=== PATIENT | male | born 1940 | race Caucasian/White ===

== ENCOUNTER 2023-02-17 13:33 | Inpatient (IN) | payer OTHER ==
--- OUTSIDE RECORDS SUMMARY | 2023-02-17 13:45 | XMS REPORT | Continuity of Care Document ---
:1940 Author Organization [facility] t Address [address] [place] [address] [id number] Care Team Providers Name Role Phone CASA BRANNONVALERY Tsai Primary Care Physician Unavailable Kim Flores Attending Clinician Unavailable TODD HUERTA Attending Clinician Unavailable DEVANG OLIVAS Attending Clinician Unavailable Shirley Arambula Attending Clinician Devang Olivas MD Attending Clinician SHIRLEY GAINES Attending Clinician Unavailable Doctor Unassigned, [place] Attending Clinician Unavailable SARAH SAL Attending Clinician Unavailable Genna Rosales Attending Clinician Nurse, [facility] Surgery Gu Attending Clinician Unavailable Sarah Dunbar Attending Clinician Stewart Kurtz MD Attending Clinician GENNA SORIA Attending Clinician Unavailable Leelee Chand LCSW Attending Clinician KHARI FLORES Attending Clinician Unavailable Todd Huerta MD Attending Clinician Only, Adc Test Attending Clinician Unavailable Pob, [facility] Main Attending Clinician Unavailable TODD HUERTA Admitting Clinician Unavailable Todd Huerta MD Admitting Clinician Payers Payer Name Policy Type Policy Effective Date Expiration Date Sour ce Number MEDICARE PART A [id number] 2006 \T\ B 00:00:00 AGENCY GENERIC [id number] 2006 00:00:00 COMMERCIAL [id number] 2006 NON-CONTRACT 00:00:00 GENERIC SECURE HORIZONS 53 [id number] Common Sp leonela - [facility] [id number] 2020 GENERIC 00:00:00 Problems Condition Condition Condition Status Onset Resolution Last Treating Co mments Source Name Details Category Date Date Treatment Clinician Date Acute Acute Disease Active 2021-06 Univers combined combined 04 ity of systolic systolic 00:00: [place] and and 00 Medical 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 Chronic Chronic Disease Active 2021-06 [facility] respirator respirator - [place] of y failure [place] Edema Edema Disease Active 2021-06 Univers 1-04 ity of 00:00: [place] 00 Medical Branch History of History of Disease Active 2021-06 U nivers fall fall -04 ity of 00:00: [place] 00 Medical Branch 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 06-06 ity of hypertensi hypertensi [place] Hyperlipid Hyperlipid Disease Active 2021-06 U nivers emia emia 06-06 ity of 00:00: [place] 00 Medical Branch Hypertensi Hypertensi Disease Active 2021-06 U nivers ve heart ve heart 1-04 ity of disease disease 00:00: [place] with heart with heart 00 Me dical failure failure Branch Obesity Obesity Disease Active 2021-06 Univers 1-04 ity of 00:00: [place] 00 Medical Branch Late Late Disease Active 2021-06 Univers effect of effect of 1 ity of fracture fracture 00:00: [place] of lower of lower 00 Medica l extremitie extremitie Br anch s s Ischemic Ischemic Disease Active 2021-06 Unive rs heart heart -04 ity of disease disease 00:00: Medical Branch Poor Poor Disease Active Univers balance balance 8-18 ity of 00:00: Medical Branch Closed Closed Disease Active Univers bimalleola bimalleola 9-20 it y of r fracture r fracture [place] with Medical fracture fracture Branch of distal of distal end of end of fibula fibula 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:00: [place]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 00 Medical Branch Atrial Atrial Disease Active Univers fibrillati fibrillati 3-21 it y of on on 00:00: Medical Branch No known No known Disease Unive rs active active ity of problems problems [facility] [id number] Primary Problem Comm on osteoarthr Spirit is [facility] right [facility] [id number] Primary Problem Comm on osteoarthr Spirit [facility] left [facility] [id number] History of Problem Co mmon prostate [facility] cancer [facility] Prostate Prostate Problem Commo n cancer cancer [facility] Allergies, Adverse Reactions, Alerts Allergy Allergy Status Severity Reaction(s) Onset Inactive Treating Comm ents Source Name Type Date Date Clinician LEVOFLOX DRUG Active Unknown-Cmnt Un trupti ACIN INGREDI 9- ity of 00:00: Medical Branch LISINOPR DRUG Active COUGH Univers IL INGREDI 15 ity of 00:00: Medical Branch Levoflox Propensi Active Unknown - Muscle Uni vers acin ty to See comments 02-15 weakness it y of adverse 00:00: [place] reaction 00 Medical s Branch Lisinopr Propensi Active Cough Univer s il ty to 915 ity of adverse 00:00: [place] reaction 00 Medical s Branch DRONEDAR DRUG Active Rash Univers ONE INGREDI 9- ity of 00:00: Medical Branch Dronedar Drug Active Rash Univers one Allergy 02-21 ity of 00:00: Medical Branch SULFA Drug Active High Anaphylaxis 2019-06 Unive rs (SULFONA Class 2-29 ity of MIDE 00:00: [place] ANTIBIOT 00 Medical ICS) Branch Sulfa Propensi Active Anaphylaxis 2019-06 Uni vers (Sulfona ty to 2-29 ity of mide adverse 00:00: [place] Antibiot reaction 00 Medica l ics) s Branch SULFAMET DRUG Active High Anaphylaxis Uni vers HOXAZOLE 3-20 ity of -TRIMETH 00:00: [place] OPRIM 00 Medical Branch sulfamet sulfamet Active Unknown Commo n hoxazole hoxazole Spirit / / - [facility] trimetho trimetho [facility] Substanc Substanc Active Unknown Commo n e with e with Spirit sulfonam sulfonam - [facility] e and e and Medical antibact antibact Center erial erial mechanis mechanis m of m of action action (substan (substan ce) ce) Social History Social Habit Start Date Stop Date Quantity Comments Source Gender identity Universit y [facility] Sexual orientation Univer sity [facility] History of Tobacco Common Spirit - Use [facility] Sex Assigned At Common Sp leonela - [facility] Exposure to 2022-03-25 2022-04-04 Not sure University SARS-CoV-2 (event) 00:00:00 10:58:00 [facility] History of Social 2022-02-15 2022-02-15 Univers ity of function 00:00:00 00:00:00 [facility] Tobacco use and 2022-02-15 2022-02-15 Smokeless Universit y of exposure 00:00:00 00:00:00 tobacco non-user [facility] Smoking Status Start Date Stop Date Source Never Smoker Common Spirit - [facility] Ex-smoker 2022-02-15 00:00:00 2022-02-15 00:00:[address] [facility] Medications Ordered Filled Start Stop Current Ordering Indication Dosage Frequency Signature Comments Components Source Medication Medication Date Date Medication? Clinician (SIG) Name Name traMADol traMADol No 1{table traMADol HCl 50 MG HCl 50 MG 1-30 t_as_ne HCl 50 MG 00:00: eded} 00 Bupivicaine Bupivicaine No 2.5mg Common [place] Clinton 1-30 Spirit 00:00: - [facility] Bupivicaine Bupivicaine No 2.5mg Common [place] Clinton 1-30 Spirit 00:00: - [facility] 00 [facility] Kenalog Kenalog No 40mg Common (Triamcinol (Triamcinol 1-30 S pirit one) one) 00:00: - [facility] 00 [facility] Kenalog Kenalog No 40mg Common (Triamcinol (Triamcinol 1-30 S pirit one) one) 00:00: - [facility] 00 [facility] cephALEXin 2021-06- No [id number] 500mg Take 1 Univers (KEFLEX) 1- 11-15 capsule by ity of 500 mg 00:00: 05:59 mouth in [place] capsule 00 :00 the Medical morning Branch and 1 capsule in the evening. Do all this for 7 days. gentamicin 2021- No [id number] 80mg U nivers injection 02-15 ity of 80 mg 22:15: 21:15 [place] 00 :00 Medical Branch gentamicin 2021- No [id number] 80mg 80 mg, Univers injection 02-15 Intramuscu ity of 80 mg 22:15: 21:15 lar, ONCE, [place] 00 :00 1 dose, On Medical Raisa Branch 02/15/22 at 1715, JOELLE
Re ason for Anti-Infec tive: Empiric Therapy for Suspected Infection< br>Empiric Therapy Site: Urine
D uration of therapy: 72 hours carvediloL 2020-06 Yes 12.5mg Take 12.5 Univers (COREG) 0-25 mg by ity of 12.5 mg 16:25: mouth 2 [place] tablet 35 (two) Medical times [place] daily with meals. predniSONE 2020-06 Yes 10mg Take 10 mg U nivers 10 mg 0-25 by mouth ity of tablet 16:25: daily. [address] spironolact 2020-06 Yes 25mg Take 25 mg Univers one 25 mg 0-25 by mouth ity of tablet 16:25: daily. [address] BENZONATATE 2020-06 Yes Take by Uni vers ORAL 0-25 mouth. ity of 16:25: [address] tamsulosin 2020-06 Yes Take by Univ ers (FLOMAX) 0-25 mouth ity of 0.4 mg 24 16:25: daily. [facility] capsule [address] [place] [address] finasteride 2020-06 Yes 5mg Take 5 mg U nivers 5 mg tablet 0-25 by mouth ity of 16:25: daily. [address] furosemide 2020-06 Yes 80mg Take 80 mg U nivers (LASIX) 80 0-25 by mouth ity o f mg tablet 16:25: every [place] [address] morning Medical and Branch evening. carvediloL 2020-06 Yes 12.5mg Take 12.5 Univers (COREG) 0-25 mg by ity of 12.5 mg 16:25: mouth 2 [place] tablet 35 (two) Medical times Branch daily with meals. predniSONE 2020-06 Yes 10mg Take 10 mg U nivers 10 mg 0-25 by mouth ity of tablet 16:25: daily. [address] spironolact 2020-06 Yes 25mg Take 25 mg Univers one 25 mg 0-25 by mouth ity of tablet 16:25: daily. [address] BENZONATATE 2020-06 Yes Take by Uni vers ORAL 0-25 mouth. ity of 16:25: [address] tamsulosin 2020-06 Yes Take by [facility] ers (FLOMAX) 0-25 mouth ity of 0.4 mg 24 16:25: daily. [facility] capsule [address] [place] [address] finasteride 2020-06 Yes 5mg Take 5 mg U nivers 5 mg tablet 0-25 by mouth ity of 16:25: daily. [address] furosemide 2020-06 Yes 80mg Take 80 mg U nivers (LASIX) 80 0-25 by mouth ity o f mg tablet 16:25: every [place] [address] morning Medical and Branch evening. carvediloL 2020-06 Yes 12.5mg Take 12.5 Univers (COREG) 0-25 mg by ity of 12.5 mg 16:25: mouth 2 [place] tablet 35 (two) Medical times Branch daily with meals. predniSONE 2020-06 Yes 10mg Take 10 mg U nivers 10 mg 0-25 by mouth ity of tablet 16:25: daily. [address] spironolact 2020-06 Yes 25mg Take 25 mg Univers one 25 mg 0-25 by mouth ity of tablet 16:25: daily. [address] BENZONATATE 2020-06 Yes Take by Uni vers ORAL 0-25 mouth. ity of 16:25: [address] tamsulosin 2020-06 Yes Take by [facility] ers (FLOMAX) 0-25 mouth ity of 0.4 mg 24 16:25: daily. [facility] capsule [address] [place] [address] finasteride 2020-06 Yes 5mg Take 5 mg U nivers 5 mg tablet 0-25 by mouth ity of 16:25: daily. [address] furosemide 2020-06 Yes 80mg Take 80 mg U nivers (LASIX) 80 0-25 by mouth ity o f mg tablet 16:25: every [place] [address] morning Medical and Branch evening. carvediloL 2020-06 Yes 12.5mg Take 12.5 Univers (COREG) 0-25 mg by ity of 12.5 mg 16:25: mouth 2 [place] tablet 35 (two) Medical times [place] daily with meals. predniSONE 2020-06 Yes 10mg Take 10 mg U nivers 10 mg 0-25 by mouth ity of tablet 16:25: daily. [address] spironolact 2020-06 Yes 25mg Take 25 mg Univers one 25 mg 0-25 by mouth ity of tablet 16:25: daily. [address] BENZONATATE 2020-06 Yes Take by Uni vers ORAL 0-25 mouth. ity of 16:25: [address] tamsulosin 2020-06 Yes Take by [facility] ers (FLOMAX) 0-25 mouth ity of 0.4 mg 24 16:25: daily. [facility] capsule [address] [place] [address] finasteride 2020-06 Yes 5mg Take 5 mg U nivers 5 mg tablet 0-25 by mouth ity of 16:25: daily. [address] furosemide 2020-06 Yes 80mg Take 80 mg U nivers (LASIX) 80 0-25 by mouth ity o f mg tablet 16:25: every [place] [address] morning Medical and Branch evening. carvediloL 2020-06 Yes 12.5mg Take 12.5 Univers (COREG) 0-25 mg by ity of 12.5 mg 16:25: mouth 2 [place] tablet 35 (two) Medical times [place] daily with meals. predniSONE 2020-06 Yes 10mg Take 10 mg U nivers 10 mg 0-25 by mouth ity of tablet 16:25: daily. [address] spironolact 2020-06 Yes 25mg Take 25 mg Univers one 25 mg 0-25 by mouth ity of tablet 16:25: daily. [address] BENZONATATE 2020-06 Yes Take by Uni vers ORAL 0-25 mouth. ity of 16:25: [address] tamsulosin 2020-06 Yes Take by [facility] ers (FLOMAX) 0-25 mouth ity of 0.4 mg 24 16:25: daily. [facility] capsule [address] [place] [address] finasteride 2020-06 Yes 5mg Take 5 mg U nivers 5 mg tablet 0-25 by mouth ity of 16:25: daily. [address] furosemide 2020-06 Yes 80mg Take 80 mg U nivers (LASIX) 80 0-25 by mouth ity o f mg tablet 16:25: every [place] [address] morning Medical and Branch evening. carvediloL 2020-06 Yes 12.5mg Take 12.5 Univers (COREG) 0-25 mg by ity of 12.5 mg 16:25: mouth 2 [place] [address] (two) Medical times [place] daily with meals. predniSONE 2020-06 Yes 10mg Take 10 mg U nivers 10 mg 0-25 by mouth ity of tablet 16:25: daily. [address] spironolact 2020-06 Yes 25mg Take 25 mg Univers one 25 mg 0-25 by mouth ity of tablet 16:25: daily. [address] BENZONATATE 2020-06 Yes Take by Uni vers ORAL 0-25 mouth. ity of 16:25: [address] tamsulosin 2020-06 Yes Take by [facility] ers (FLOMAX) 0-25 mouth ity of 0.4 mg 24 16:25: daily. [facility] capsule [address] [place] [address] finasteride 2020-06 Yes 5mg Take 5 mg U nivers 5 mg tablet 0-25 by mouth ity of 16:25: daily. [address] furosemide 2020-06 Yes 80mg Take 80 mg U nivers (LASIX) 80 0-25 by mouth ity o f mg tablet 16:25: every [place] [address] morning Medical and Branch evening. carvediloL 2020-06 Yes 12.5mg Take 12.5 Univers (COREG) 0-25 mg by ity of 12.5 mg 16:25: mouth 2 [place] tablet 35 (two) Medical times [place] daily with meals. predniSONE 2020-06 Yes 10mg Take 10 mg U nivers 10 mg 0-25 by mouth ity of tablet 16:25: daily. [address] spironolact 2020-06 Yes 25mg Take 25 mg Univers one 25 mg 0-25 by mouth ity of tablet 16:25: daily. [address] BENZONATATE 2020-06 Yes Take by Uni vers ORAL 0-25 mouth. ity of 16:25: [address] tamsulosin 2020-06 Yes Take by Univ ers (FLOMAX) 0-25 mouth ity of 0.4 mg 24 16:25: daily. [facility] capsule [address] [place] [address] finasteride 2020-06 Yes 5mg Take 5 mg U nivers 5 mg tablet 0-25 by mouth ity of 16:25: daily. [address] furosemide 2020-06 Yes 80mg Take 80 mg U nivers (LASIX) 80 0-25 by mouth ity o f mg tablet 16:25: every [place] [address] morning Medical and Branch evening. carvediloL 2020-06 Yes 12.5mg Take 12.5 Univers (COREG) 0-25 mg by ity of 12.5 mg 16:25: mouth 2 [place] tablet 35 (two) Medical times [place] daily with meals. predniSONE 2020-06 Yes 10mg Take 10 mg U nivers 10 mg 0-25 by mouth ity of tablet 16:25: daily. [address] spironolact 2020-06 Yes 25mg Take 25 mg Univers one 25 mg 0-25 by mouth ity of tablet 16:25: daily. [address] BENZONATATE 2020-06 Yes Take by Uni vers ORAL 0-25 mouth. ity of 16:25: [address] tamsulosin 2020-06 Yes Take by Uni vers (FLOMAX) 0-25 mouth ity of 0.4 mg 24 16:25: daily. [facility] capsule [address] [place] [address] finasteride 2020-06 Yes 5mg Take 5 mg U nivers 5 mg tablet 0-25 by mouth ity of 16:25: daily. [address] furosemide 2020-06 Yes 80mg Take 80 mg U nivers (LASIX) 80 0-25 by mouth ity o f mg tablet 16:25: every [place] [address] morning Medical and Branch evening. carvediloL 2020-06 Yes 12.5mg Take 12.5 Univers (COREG) 0-25 mg by ity of 12.5 mg 16:25: mouth 2 [place] tablet 35 (two) Medical times Branch daily with meals. predniSONE 2020-06 Yes 10mg Take 10 mg U nivers 10 mg 0-25 by mouth ity of tablet 16:25: daily. [address] spironolact 2020-06 Yes 25mg Take 25 mg Univers one 25 mg 0-25 by mouth ity of tablet 16:25: daily. [address] BENZONATATE 2020-06 Yes Take by Uni vers ORAL 0-25 mouth. ity of 16:25: [address] tamsulosin 2020-06 Yes Take by [facility] ers (FLOMAX) 0-25 mouth ity of 0.4 mg 24 16:25: daily. [facility] capsule [address] [place] [address] finasteride 2020-06 Yes 5mg Take 5 mg U nivers 5 mg tablet 0-25 by mouth ity of 16:25: daily. [address] furosemide 2020-06 Yes 80mg Take 80 mg U nivers (LASIX) 80 0-25 by mouth ity o f mg tablet 16:25: every [place] [address] morning Medical and Branch evening. carvediloL 2020-06 Yes 12.5mg Take 12.5 Univers (COREG) 0-25 mg by ity of 12.5 mg 16:25: mouth 2 [place] tablet 35 (two) Medical times [place] daily with meals. predniSONE 2020-06 Yes 10mg Take 10 mg U nivers 10 mg 0-25 by mouth ity of tablet 16:25: daily. [address] spironolact 2020-06 Yes 25mg Take 25 mg Univers one 25 mg 0-25 by mouth ity of tablet 16:25: daily. [address] BENZONATATE 2020-06 Yes Take by Uni vers ORAL 0-25 mouth. ity of 16:25: [address] tamsulosin 2020-06 Yes Take by Univ ers (FLOMAX) 0-25 mouth ity of 0.4 mg 24 16:25: daily. [facility] capsule [address] [place] [address] finasteride 2020-06 Yes 5mg Take 5 mg U nivers 5 mg tablet 0-25 by mouth ity of 16:25: daily. [place] [address] Medical Branch furosemide 2020-06 Yes 80mg Take 80 mg U nivers (LASIX) 80 0-25 by mouth ity o f mg tablet 16:25: every [place] [address] morning Medical and Branch evening. potassium 2020-06 Yes 20meq Take 20 Univ ers chloride 0-25 mEq by ity of (KCL-20 16:20: mouth 2 [place] ORAL) 34 (two) Medical times Branch daily. warfarin 4 2020-06 Yes 4.5mg Take 4.5 Un trupti mg tablet 0-25 mg by ity of 16:20: mouth. [place] [address] Medical Branch potassium 2020-06 Yes 20meq Take 20 Univ ers chloride 0-25 mEq by ity of (KCL-20 16:20: mouth 2 [place] ORAL) 34 (two) Medical times Branch daily. warfarin 4 2020-06 Yes 4.5mg Take 4.5 Un trupti mg tablet 0-25 mg by ity of 16:20: mouth. [address] Branch potassium 2020-06 Yes 20meq Take 20 Univ ers chloride 0-25 mEq by ity of (KCL-20 16:20: mouth 2 [place] ORAL) 34 (two) Medical times Branch daily. warfarin 4 2020-06 Yes 4.5mg Take 4.5 Un trupti mg tablet 0-25 mg by ity of 16:20: mouth. [address] Branch potassium 2020-06 Yes 20meq Take 20 Univ ers chloride 0-25 mEq by ity of (KCL-20 16:20: mouth 2 [place] ORAL) 34 (two) Medical times Branch daily. warfarin 4 2020-06 Yes 4.5mg Take 4.5 Un trupti mg tablet 0-25 mg by ity of 16:20: mouth. [place] [address] Medical Branch potassium 2020-06 Yes 20meq Take 20 Univ ers chloride 0-25 mEq by ity of (KCL-20 16:20: mouth 2 [place] ORAL) 34 (two) Medical times Branch daily. warfarin 4 2020-06 Yes 4.5mg Take 4.5 Un trupti mg tablet 0-25 mg by ity of 16:20: mouth. [address] potassium 2020-06 Yes 20meq Take 20 Univ ers chloride 0-25 mEq by ity of (KCL-20 16:20: mouth 2 [place] ORAL) 34 (two) Medical times Branch daily. warfarin 4 2020-06 Yes 4.5mg Take 4.5 Un trupti mg tablet 0-25 mg by ity of 16:20: mouth. [address] potassium 2020-06 Yes 20meq Take 20 Univ ers chloride 0-25 mEq by ity of (KCL-20 16:20: mouth 2 [place] ORAL) 34 (two) Medical times Branch daily. warfarin 2020-06 Yes 4.5mg Take 4.5 Un trupti mg tablet 0-25 mg by ity of 16:20: mouth. [address] potassium 2020-06 Yes 20meq Take 20 Univ ers chloride 0-25 mEq by ity of (KCL-20 16:20: mouth 2 [place] ORAL) 34 (two) Medical times Branch daily. warfarin 2020-06 Yes 4.5mg Take 4.5 Un trupti mg tablet 0-25 mg by ity of 16:20: mouth. [address] potassium 2020-06 Yes 20meq Take 20 Univ ers chloride 0-25 mEq by ity of (KCL-20 16:20: mouth 2 [place] ORAL) 34 (two) Medical times Branch daily. warfarin 2020-06 Yes 4.5mg Take 4.5 Un trupti mg tablet 0-25 mg by ity of 16:20: mouth. [address] potassium 2020-06 Yes 20meq Take 20 Univ ers chloride 0-25 mEq by ity of (KCL-20 16:20: mouth 2 [place] ORAL) 34 (two) Medical times Branch daily. warfarin 2020-06 Yes 4.5mg Take 4.5 Un trupti mg tablet 0-25 mg by ity of 16:20: mouth. [address] cyclobenzap Yes [id number] 10mg Take 1 Univers rine 10 mg 9-21 [id number] tablet by it y of tablet 00:00: mouth 3 00 (three) Medical times Branch daily. cyclobenzap Yes [id number] 10mg Take 1 Univers rine 10 mg 9-21 [id number] tablet by it y of tablet 00:00: mouth 3 00 (three) Medical times Branch daily. cyclobenzap Yes [id number] 10mg Take 1 Univers rine 10 mg 9-21 [id number] tablet by it y of tablet 00:00: mouth 3 00 (three) Medical times Branch daily. cyclobenzap 2020-0 Yes [id number] 10mg Take 1 Univers rine 10 mg 9-21 [id number] tablet by it y of tablet 00:00: mouth 3 00 (three) Medical times Branch daily. cyclobenzap 2020-0 Yes [id number] 10mg Take 1 Univers rine 10 mg 9-21 [id number] tablet by it y of tablet 00:00: mouth 3 (three) Medical times Branch daily. cyclobenzap 2020-0 Yes [id number] 10mg Take 1 Univers rine 10 mg 9-21 [id number] tablet by it y of tablet 00:00: mouth 3 (three) Medical times Branch daily. cyclobenzap 2020-0 Yes [id number] 10mg Take 1 Univers rine 10 mg 9-21 [id number] tablet by it y of tablet 00:00: mouth 3 (three) Medical times Branch daily. cyclobenzap 2020-0 Yes [id number] 10mg Take 1 Univers rine 10 mg 9-21 [id number] tablet by it y of tablet 00:00: mouth 3 (three) Medical times Branch daily. cyclobenzap 2020-0 Yes [id number] 10mg Take 1 Univers rine 10 mg 9-21 [id number] tablet by it y of tablet 00:00: mouth 3 (three) Medical times Branch daily. cyclobenzap 2020-0 Yes [id number] 10mg Take 1 Univers rine 10 mg 9-21 [id number] tablet by it y of tablet 00:00: mouth 3 (three) Medical times Branch daily. valsartan 2020-0 Yes Univers 320 mg 9-16 ity of tablet 00:00: 00 Medical Branch valsartan 2020-0 Yes Univers 320 mg 9-16 ity of tablet 00:00: Medical Branch valsartan 2020-0 Yes Univers 320 mg 9-16 ity of tablet 00:00: Medical Branch valsartan 2020-0 Yes Univers 320 mg 9-16 ity of tablet 00:00: Medical Branch valsartan 2020-0 Yes Univers 320 mg 9-16 ity of tablet 00:00: [place] 00 Medical Branch valsartan 0 Yes Univers 320 mg 9-16 ity of tablet 00:00: Medical Branch valsartan 2020-0 Yes Univers 320 mg 9-16 ity of tablet 00:00: [place] Medical Branch valsartan 2020-0 Yes Univers 320 mg 9-16 ity of tablet 00:00: [place] Medical Branch valsartan 2020-0 Yes Univers 320 mg 9-16 ity of tablet 00:00: [place] [facility] valsartan 2020-0 Yes Univers 320 mg 9-16 ity of tablet 00:00: [place] [facility] ofloxacin 0 Yes INSTILL 1 Uni vers 0.3 % 8-11 DROP IN ity of ophthalmic 00:00: BOTH EYES [place] solution 00 TWICE Medical DAILY FOR Branch 1 WEEK ofloxacin 0 Yes INSTILL 1 Uni vers 0.3 % 8-11 DROP IN ity of ophthalmic 00:00: BOTH EYES [place] solution 00 TWICE Medical DAILY FOR Branch 1 WEEK ofloxacin 0 Yes INSTILL 1 Uni vers 0.3 % 8-11 DROP IN ity of ophthalmic 00:00: BOTH EYES [place] solution 00 TWICE Medical DAILY FOR Branch 1 WEEK ofloxacin 0 Yes INSTILL 1 Uni vers 0.3 % 8-11 DROP IN ity of ophthalmic 00:00: BOTH EYES [place] solution 00 TWICE Medical DAILY FOR Branch 1 WEEK ofloxacin 0 Yes INSTILL 1 Uni vers 0.3 % 8-11 DROP IN ity of ophthalmic 00:00: BOTH EYES [place] solution 00 TWICE Medical DAILY FOR Branch 1 WEEK ofloxacin 0 Yes INSTILL 1 Uni vers 0.3 % 8-11 DROP IN ity of ophthalmic 00:00: BOTH EYES [place] solution 00 TWICE Medical DAILY FOR Branch 1 WEEK ofloxacin 2020-0 Yes INSTILL 1 Uni vers 0.3 % 8-11 DROP IN ity of ophthalmic 00:00: BOTH EYES [place] solution 00 TWICE Medical DAILY FOR Branch 1 WEEK ofloxacin 2020-0 Yes INSTILL 1 Uni vers 0.3 % 8-11 DROP IN ity of ophthalmic 00:00: BOTH EYES [place] solution 00 TWICE Medical DAILY FOR Branch 1 WEEK ofloxacin 2020-0 Yes INSTILL 1 Uni vers 0.3 % 8-11 DROP IN ity of ophthalmic 00:00: BOTH EYES [place] solution 00 TWICE Medical DAILY FOR Branch 1 WEEK ofloxacin 2020-0 Yes INSTILL 1 Uni vers 0.3 % 8-11 DROP IN ity of ophthalmic 00:00: BOTH EYES [place] solution 00 TWICE Medical DAILY FOR Branch 1 WEEK olmesartan 2020-0 Yes 20mg Take 20 mg U nivers 20 mg 1-20 by mouth. ity of tablet 11:08: [address] olmesartan 2020-0 Yes 20mg Take 20 mg U nivers 20 mg 1-20 by mouth. ity of tablet 11:08: [address] olmesartan 2020-0 Yes 20mg Take 20 mg U nivers 20 mg 1-20 by mouth. ity of tablet 11:08: [address] olmesartan 2020-0 Yes 20mg Take 20 mg U nivers 20 mg 1-20 by mouth. ity of tablet 11:08: [address] olmesartan 2020-0 Yes 20mg Take 20 mg U nivers 20 mg 1-20 by mouth. ity of tablet 11:08: [address] olmesartan 2020-0 Yes 20mg Take 20 mg U nivers 20 mg 1-20 by mouth. ity of tablet 11:08: [address] olmesartan 2020-0 Yes 20mg Take 20 mg U nivers 20 mg 1-20 by mouth. ity of tablet 11:08: [address] olmesartan 2020-0 Yes 20mg Take 20 mg U nivers 20 mg 1-20 by mouth. ity of tablet 11:08: [address] olmesartan 2020-0 Yes 20mg Take 20 mg U nivers 20 mg 1-20 by mouth. ity of tablet 11:08: [address] olmesartan 2020-0 Yes 20mg Take 20 mg U nivers 20 mg 1-20 by mouth. ity of tablet 11:08: [address] Levaquin Levaquin 2020-0 2020- No Antonella 1 tablet Common 2-21 07-31 [place] [facility] 00:00: 00:00 - [facility]I 00 :00 [facility] Furosemide Furosemide Yes Antonella [address] [facility] PredniSONE PredniSONE Yes Antonella [address] Losartan Losartan Yes Antonella 1 tablet Co mmon Potassium Potassium [place] [facility] Carvedilol Carvedilol Yes Antonella as Co mmon [place] directed [facility] ProAir HFA ProAir HFA Yes Antonella 1 puff as Common [place] needed [facility] Warfarin Warfarin Yes Antonella 1 tablet Co mmon Sodium Sodium [place] [facility] Hydrocodone Hydrocodone Yes Antonella 1 tablet Common -Acetaminop -Acetaminop [place] as needed [facility] Atorvastati Atorvastati Yes Antonella 1 tablet Common n Calcium n Calcium [place] [facility] Lasix Lasix No Lasix Warfarin Warfarin No 1{table QD Warfarin Sodium 4 MG Sodium 4 MG t} Sodium 4 MG Carvedilol Carvedilol No Carvedilol 6.25 MG 6.25 MG 6.25 MG Furosemide Furosemide No 1{table QD Furosemide 80 MG 80 MG t} 80 MG predniSONE predniSONE No 1{table QD predniSONE 5 MG 5 MG t} 5 MG Spironolact Spironolact No Spironolac one one tone Olmesartan Olmesartan No Olmesartan Medoxomil Medoxomil Medoxomil HYDROcodone HYDROcodone No 1{table QID HYDROcodon -Acetaminop -Acetaminop t_as_ne e-Acetamin hen 10-325 hen 10-325 eded} ophen MG MG 10-325 MG ProAir HFA ProAir HFA No 1{puff_ 6xD ProAir HFA 108 (90 108 (90 as_need 108 (90 Base) Base) ed} Base) MCG/ACT MCG/ACT MCG/ACT Losartan Losartan No 1{table QD Losartan Potassium Potassium t} Potassium 100 MG 100 MG 100 MG Levaquin Levaquin No 1{table QD Levaquin 500 MG 500 MG t} 500 MG Potassium Potassium No Potassium Atorvastati Atorvastati No 1{table QD Atorvastat n Calcium n Calcium t} in Calcium 10 MG 10 MG 10 MG Immunizations Ordered Filled Immunization Date Status Comments Sourc e Immunization Name Name SARS-COV-2 COVID-19 2020-07-08 Completed Unive rsity of MODER[place] 12+ YRS 00:00:00 [place] [facility] SARS-COV-2 COVID-19 2020-07-08 Completed Unive rsity of [place]ER[place] 12+ YRS 00:00:00 [place] [facility] SARS-COV-2 COVID-19 2020-07-08 Completed Unive rsity of [place] 12+ YRS 00:00:00 [place] [facility] VACCINE [facility] SARS-COV-2 COVID-19 2020-07-08 Completed Unive rsity of [place] 12+ YRS 00:00:00 [place] [facility] VACCINE [facility] SARS-COV-2 COVID-19 2020-07-08 Completed Unive rsity of [place] 12+ YRS 00:00:00 [place] [facility] VACCINE [facility] SARS-COV-2 COVID-19 2020-07-08 Completed Unive rsity of MODER[place] 12+ YRS 00:00:00 [place] [facility] VACCINE [facility] SARS-COV-2 COVID-19 2020-07-08 Completed Unive rsity of MOD[place] 12+ YRS 00:00:00 [place] [facility] VACCINE [facility] SARS-COV-2 COVID-19 2020-07-08 Completed Unive rsity of MODER[place] 12+ YRS 00:00:00 [place] [facility] VACCINE [facility] SARS-COV-2 COVID-19 2020-07-08 Completed Unive rsity of MODER[place] 12+ YRS 00:00:00 [place] [facility] VACCINE [facility] SARS-COV-2 COVID-19 2020-07-08 Completed Unive rsity of MODERNA 12+ YRS 00:00:00 [place] [facility] VACCINE [facility] SARS-COV-2 COVID-19 2020-06-10 Completed Unive rsity of MODERNA 12+ YRS 00:00:00 [place] [facility] VACCINE [facility] SARS-COV-2 COVID-19 2020-06-10 Completed Unive rsity of MODERNA 12+ YRS 00:00:00 [place] [facility] VACCINE [facility] SARS-COV-2 COVID-19 2020-06-10 Completed Unive rsity of MODERNA 12+ YRS 00:00:00 [place] [facility] VACCINE [facility] SARS-COV-2 COVID-19 2020-06-10 Completed Unive rsity of MODERNA 12+ YRS 00:00:00 [place] [facility] VACCINE [facility] SARS-COV-2 COVID-19 2020-06-10 Completed Unive rsity of MODERNA 12+ YRS 00:00:00 [place] [facility] ical VACCINE Branch SARS-COV-2 COVID-19 2020-06-10 Completed Unive rsity of MODERNA 12+ YRS 00:00:00 [place] [facility] VACCINE [facility] SARS-COV-2 COVID-19 2020-06-10 Completed Unive rsity of MODERNA 12+ YRS 00:00:00 [facility] [place] ical VACCINE Branch SARS-COV-2 COVID-19 2020-06-10 Completed Unive rsity of MODERNA 12+ YRS 00:00:00 [facility] [place] ical VACCINE Branch SARS-COV-2 COVID-19 2020-06-10 Completed Unive rsity of MODERNA 12+ YRS 00:00:00 [facility] [place] ical VACCINE Branch SARS-COV-2 COVID-19 2020-06-10 Completed Unive rsity of MODERNA 12+ YRS 00:00:00 [facility] [place] ical VACCINE Branch Vital Signs Vital Name Observation Time Observation Value Comments Source Systolic blood 2022-07-09 17:15:00 128 mm[Hg] Univer sity of pressure [facility] Diastolic blood 2022-07-09 17:15:00 88 mm[Hg] Unive rsity of pressure [facility] Heart rate 2022-07-09 17:15:00 91 /min [facility] Body temperature 2022-07-09 17:15:00 36.78 Karly [facility] Respiratory rate 2022-07-09 17:15:00 16 /min [facility] Body height 2022-07-09 17:15:00 177.8 cm [facility] Body weight 2022-07-09 17:15:00 108.863 kg [facility] BMI 2022-07-09 17:15:00 34.44 kg/m2 [facility] Oxygen saturation in 2022-07-09 17:15:00 95 /min [facility] Arterial blood by [facility]xim[facility] Branch height 2022-07-02 13:00:00 69 [in_i] Common [facility] weight 2022-07-02 13:00:00 240 [lb_av] Common [facility] temperature 2022-07-02 13:00:00 97.7 [degF] Common [facility] bmi 2022-07-02 13:00:00 35.44 kg/m2 Common S pirit [facility] blood pressure 2022-07-02 13:00:00 146 mm[Hg] Common Spirit - systolic [facility] blood pressure 2022-07-02 13:00:00 82 mm[Hg] Common Spirit - diastolic [facility] Systolic blood 2022-04-04 16:21:00 154 mm[Hg] Univer sity of [facility] Diastolic blood 2022-04-04 16:21:00 90 mm[Hg] Unive rsity of [facility] Heart rate 2022-04-04 16:21:00 77 /min Universi ty [facility] Body temperature 2022-04-04 16:20:00 36.11 Karly [facility] Respiratory rate 2022-04-04 16:20:00 18 /min [facility] Body height 2022-04-04 16:20:[address] [facility] Body weight 2022-04-04 16:20:[address] [facility] BMI 2022-04-04 16:20:00 33.29 kg/m2 [facility] Oxygen saturation in 2022-04-04 16:20:00 97 /min University Arterial blood by [facility] Pulse oximetry Branch Systolic blood 2022-02-15 20:27:00 125 mm[Hg] Univer sity of [facility] Diastolic blood 2022-02-15 20:27:00 74 mm[Hg] Unive rsity of [facility] Heart rate 2022-02-15 20:27:00 66 /min Universi ty [facility] Body temperature 2022-02-15 20:27:00 36.17 Karly [facility] Respiratory rate 2022-02-15 20:27:00 18 /min Univ ersity of [facility] Body height 2022-02-15 20:27:00 177.8 cm [facility] Body weight 2022-02-15 20:27:00 105.235 kg [facility] BMI 2022-02-15 20:27:00 33.29 kg/m2 [facility] Oxygen saturation in 2022-02-15 20:27:00 95 /min University [facility] blood by [facility] Pulse oxim[facility] Branch Procedures Procedure Date / Time Performed Performing Clinician Sour e POCT URINALYSIS AUTO 2022-07-09 17:25:00 Shirley Gaines [facility] POCT URINALYSIS AUTO 2022-07-09 00:00:00 Shirley Gaines [facility] POCT URINALYSIS AUTO 2022-04-04 16:30:00 Shirley Gaines [facility] ASSIGNMENT OF BENEFITS 2022-04-04 15:59:27 Doctor Unassigned, No [facility] Encounters Start End Encounter Admission Attending Care Care Encounter Source Date/Time Date/Time Type Type Clinicians Facility Department ID 2022-07-02 [facility] [id number] Common 16:47:01 , Kim [id number] [facility] 2022-06-05 [facility] [id number] Common 10:28:01 , Kim [id number] [facility] 2021-06-28 [facility] [id number] Common 11:09:25 , Kim [id number] [facility] 2021-04-01 Outpatient R SAAD [facility] CHRISTOPHER [id number] Univers 16:28:[address] [facility] 2021-04-01 Outpatient R SAAD KYTEJA CHRISTOPHER [id number] Univers 12:28:[address] [facility] 2023-02-20 2023-02-20 Outpatient R DEISY [facility] [id number] Univers 15:00:00 15:00:[address] [facility] 2023-02-12 2023-02-12 Outpatient R [facility] [id number] Univers 13:00:00 13:00:00 [facility] 2023-02-11 2023-02-11 Telephone Gaines, [facility] 1.2.840.114 [id number] Univers 00:00:00 00:00:00 Shirley VALLSE 350.1.13.10 ity [facility] [id number] [id number] Ak dical [address] 2023-02-07 2023-02-07 [facility] 1.2.840.114 [id number] Univers 00:00:00 00:00:00 Devang VALLES [id number] i ty [facility] [id number] [id number] Ak dic[address] 2023-01-23 2023-01-23 [id number] Univers 13:45:00 13:45:00 SHIRLEY lanagracie o [facility] 2022-07-09 2022-07-09 [facility] [id number] Univers 11:30:00 11:47:44 SHIRLEY ity o [facility] 2022-07-09 2022-07-09 Office [facility] 1.2.840.114 [id number] [facility] 11:30:00 11:47:44 Visit Shirley VALLES 350.1.13.10 ity of [facility] [id number] [id number] Ak dic[address] 2022-07-02 2022-07-[address] [facility] [id number] Co mmon 00:00:00 00:00:00 [facility] PT LEVEL 4 - CHI [facility] 2022-04-09 2022-04-09 Case Gaines, [facility] 1.2.840.114 [id number] Univers 00:00:00 00:00:00 Management Shirley VALLES 350.1.13.10 [place] of [place] [phone] Ak dical [address] 2022-04-04 2022-04-04 [facility] [id number] Univers 11:00:00 11:53:16 SHIRLEY anne o f [facility] 2022-04-04 2022-04-04 [facility] 1.2.840.114 [id number] Univers 11:00:00 11:53:16 Visit Shirley VALLES 350.1.13.10 ity of [place] [phone] Me dical [address] 2022-04-04 2022-04-04 Orders Doctor CHRIS 1.2.840.114 [id number] Univers 00:00:00 00:00:00 Only Unassigned, LAUREN 350.1.13.10 [facility] 4.2.7.2.686 [place] [phone] [address] 2022-02-15 2022-02-15 Outpatient R [facility] [id number] Univers 15:00:00 16:39:[address] [facility] 2022-02-15 2022-02-15 Outpatient R [facility] [id number] Univers 15:00:00 16:39:[address] [facility] 2022-02-15 2022-02-15 Office [facility] 1.2.840.114 [id number] Univers 15:00:00 16:39:54 Visit Devang [place] 350.1.13.10 i ty of [place] [id number] Ak dical [address] 2022-02-08 2022-02-08 Orders Doctor CHRIS 1.2.840.114 [id number] Univers 00:00:00 00:00:00 Only Unassigned, LAUREN 350.1.13.10 ity of [facility] 4.2.7.2.686 [place] [id number] [address] 2022-02-07 2022-02-07 Telephone [facility] 1.2.840.114 [id number] Univers 00:00:00 00:00:00 Devang [place] 350.1.13.10 i ty [place] [id number] Ak dical NAL [address] [place] [address] 2021-08-16 2021-08-16 Telephone [facility] 1.2.840.114 [id number] Univers 00:00:00 00:00:00 Devang [place] 350.1.13.10 i ty [place] [id number] Ak dical NAL [address] [place] [address] 2021-06-29 2021-06-29 Outpatient R DEISY [facility] [id number] Univers 10:15:00 11:03:20 [facility] 2021-06-29 2021-06-29 [facility] 1.2.840.114 [id number] Univers 10:15:00 11:03:20 Visit [facility] 350.1.13.10 i ty of [place] 4[place]2.[place] [id number] Ak dic[address] 2021-06-29 2021-06-29 [facility] [id number] Univers 10:15:00 11:03:[address] [facility] 2021-05-23 2021-05-23 Outpatient R DORON [facility] [id number] Univers 10:30:00 10:30:00 [facility] 2021-05-04 2021-05-04 [facility] [id number] Univers 09:00:00 09:00:00 [facility] 2021-05-01 2021-05-01 [facility] [id number] Univers 10:00:00 11:13:[address] [facility] 2021-05-01 2021-05-01 [facility] 1.2.840.114 [id number] Univers 09:55:06 11:13:51 Visit [facility] 350.1.13.10 i ty of [place] 4[place] [id number] Ak jose [address] 2021-05-01 2021-05-01 Outpatient R DEISY [facility] [id number] Univers 10:00:00 10:00:[address] [facility] 2021-04-26 2021-04-26 Telephone [facility] [id number] Univers 00:00:00 00:00:00 Genna S HEALTH 350.1.13.10 it y of [place] 4.2.7.2.686 [place] GURDEEP?BLEA [id number] [facility] BO[address] OFFICE [facility] 2021-04-20 2021-04-20 Out[facility] [id number] Univers 13:00:00 13:49:[address] [facility] 2021-04-20 2021-04-20 Nurse Nurse, [facility] 1.2. 840.114 [id number] Univers 12:47:11 13:49:39 Visit Kelley Salela Eulalio VALLES 350.1.13.10 [place] of [place] [id number] [address] 2021-04-20 2021-04-20 Telephone Jerardo [facility] 1.2.840.114 [id number] Univers 00:00:00 00:00:00 Stewart L HEALTH 350.1.13.10 it y of [place] 4.2.7.2.686 [place] GURDEEP?BLEA [id number] Ak jose OSORIO [address] [place] [address] OFFICE [facility] 2021-04-14 2021-04-14 Telephone Deisy [facility] 1.2.840.114 [id number] Univers 00:00:00 00:00:00 [facility] REENA 350.1.13.10 i ty [place] [id number] Ak leena[address] 2021-04-13 2021-04-13 Outpatient R YANG [facility] [id number] Univers 11:00:00 11:00:[address] [facility] 2021-04-13 2021-04-13 Outpatient Becca YANG, [facility] [id number] Univers 11:00:00 11:00:[address] [facility] 2021-04-12 2021-04-12 Outpatient R DORON, [facility] [id number] Univers 14:30:00 15:46:[address] [facility] 2021-04-12 2021-04-12 Outpatient R DORON, [facility] [id number] Univers 14:30:00 15:46:[address] [facility] 2021-04-12 2021-04-12 Outpatient R DORON, [facility] [id number] Univers 14:30:00 15:46:08 [facility] 2021-04-12 2021-04-12 Office [facility] 1.2.840.114 [id number] Univers 14:20:54 15:46:08 [facility] 350.1.13.10 ity of [place] 4.[place] [phone] Ak dical NAL [address] [facility] 2021-04-12 2021-04-12 Outpatient Becca SAL [facility] [id number] Univers 14:30:00 14:30:[address] [facility] 2021-03-31 2021-03-31 Outpatient Becca [facility] [id number] Univers 11:12:45 23:59:00 [facility] 2021-03-31 2021-03-31 [facility] 1.2.840.114 [id number] Univers 11:12:45 23:59:00 Encounter Genna [facility] 350.1.13.10 ity of [place] 4.2.7.2.686 [place] GURDEEP?BLEA [id number] Ak dical KNEY 809 [facility] OFFICE [facility] 2021-03-31 2021-03-31 Outpatient Becca [facility] [id number] Univers 11:12:45 23:59:00 [facility] 2021-03-31 2021-03-31 Office [facility] 1.2.840.114 [id number] Univers 11:08:32 11:41:27 Visit [facility] HEALTH 350.1.13.10 it y of [place] 4.2.7.2.686 [place] GURDEEP?BLEA [id number] Ak jose OSORIO 198 [facility] 2021-03-31 2021-03-31 Outpatient Becca [facility] [id number] Univers 11:00:00 11:41:27 [facility] 2021-03-31 2021-03-31 Outpatient Becca [facility] [id number] Univers 11:00:00 11:00:00 [facility] 2021-03-31 2021-03-31 [facility] [id number] Univers 11:00:00 11:00:00 [facility] 2021-03-31 2021-03-31 Outpatient Becca [facility] [id number] Univers 11:00:00 11:00:00 [facility] 2021-03-31 2021-03-31 Telephone [facility] [id number] Univers 00:00:00 00:00:00 [facility] 350.1.13.10 it y of [place] 4.2.7.2.686 [place] GURDEEP?BLEA [id number] Ak jose OSORIO 198 [facility] 2021-03-30 2021-03-30 Telephone [facility] [id number] Univers 00:00:00 00:00:00 Sarah VALLES 350.1.13.10 ity of [facility] 4.2.[place] [id number] Ak jose THOMPSON 204 [facility] 2021-03-27 2021-03-27 Office [facility] 1.2.840.114 [id number] Univers 11:15:08 12:12:54 Visit Devang Valles 350.1.13.10 i ty of [place]2.[place] [phone] Ak dical nal [address] 2021-03-27 2021-03-27 Outpatient R PÉRE[facility]ARISTIDESSte[facility] [id number] Univers 11:30:00 11:30:[address] [facility] 2021-03-27 2021-03-27 [facility] [id number] Univers 11:30:00 11:30:[address] [facility] 2021-03-27 2021-03-27 Orders Doctor CHRIS 1.2.840.114 [id number] Univers 00:00:00 00:00:00 Only Unassigned, LAUREN 350.1.13.10 ity of [facility] 4.2.7.2.686 [place] as [id number] [facility] [address] [place] 2021-03-24 2021-03-24 [facility] [id number] Univers 00:00:00 00:00:00 Genna [facility] 350.1.13.10 it y of [place] 4.2.7.2.686 [place] Gurdeep?Blea [id number] Ak dical kney [address] [place] [facility] 2021-03-10 2021-03-10 [facility] 1.2.840.114 [id number] Univers 11:45:00 23:59:00 Encounter Genna B[place] Valles 350.1.13.[address] [facility] 4.2.[place] [id number] [facility] [address] 2021-03-10 2021-03-10 [facility] [id number] Univers 11:00:00 11:09:[address] [facility] 2021-03-10 2021-03-10 [facility] [id number] Univers 11:00:00 11:00:[address] [facility] 2021-03-10 2021-03-10 Office [facility] 1.2.840.114 [id number] Univers 10:44:29 10:59:29 Visit Genna [facility] 350.1.13.10 it y of [place] 4.2.7.2.686 [place] Gurdeep?Blea [id number] Me jose osorio 198 [facility] Office [facility] 2021-03-10 2021-03-10 Orders Doctor CHRIS 1.2.840.114 [id number] Univers 00:00:00 00:00:00 Only Unassigned, LAUREN 350.1.13.10 ity of [facility] 4.2.7.2.686 [place] as [phone] [address] 2021-03-10 2021-03-10 Telephone [facility] [id number] Univers 00:00:00 00:00:00 [facility] 350.1.13.10 it y of [place] 4.2.7.2.686 [place] Gurdeep?Blea [phone] Me jose osorio [address] [place] [address] 2021-03-07 2021-03-07 Outpatient R YANG [facility] [id number] Univers 11:15:00 11:15:[address] [facility] 2021-03-03 2021-03-03 Patient [facility] 1.2.840.114 [id number] Univers 00:00:00 00:00:00 Outreach Leelee Polisofia 350.1.13.10 i ty of Surgical 4.2.7.2.686 [place] Specialti [id number] Ak jose comer 198 [facility] 2021-02-28 2021-02-28 Outpatient R YANG [facility] [id number] Univers 11:15:00 11:15:[address] [facility] 2021-02-28 2021-02-28 Telephone [facility] [id number] Univers 00:00:00 00:00:00 [facility] 350.1.13.10 it y of [place] 4.2.7.2.686 [place] Gurdeep?Blea [id number] Me jose osorio [address] [place] [address] 2021-02-27 2021-02-27 Telephone Jerardo [facility] 1.2.840.114 [id number] Univers 00:00:00 00:00:00 [facility] 350.1.13.10 it y of [place] 4.2.7.2.686 [place] Gurdeep?Blea [id number] Ak jose osorio 198 [facility] Office [facility] 2021-02-24 2021-02-24 Patient Luciano Chand 1.2.840.114 [id number] Univers 00:00:00 00:00:00 Outreach Leelee Pediatric 350.1.13.10 ity of [place] [id number] [facility] Primary [address] [facility] 2021-02-23 2021-02-23 Telephone [facility] [id number] Univers 00:00:00 00:00:00 Genna [facility] [id number] it y of [place] 4.2.7.2.686 [place] as Gurdeep?Blea [id number] Ak jose osorio [address] [place] [address] 2021-02-21 2021-02-21 Hospital [facility] [id number] Univers 13:27:42 23:59:00 Encounter Genna Valles [id number] it[place] [id number] [facility] [address] 2021-02-21 2021-02-21 [facility] [id number] Univers 10:18:05 11:57:08 Visit Genna [facility] [id number] it y of [place] [id number] Hserman as Gurdeep?Blea [phone] Ak jose osorio 198 [facility] Office [facility] 2021-02-21 2021-02-21 Outpatient R YANG [facility] [id number] Univers 10:00:00 10:00:00 GENNA ity of [facility] 2021-02-21 2021-02-21 [facility] [id number] Univers 00:00:00 00:00:00 [facility] [id number] it y of [place] [id number] [place] as Gurdeep?Blea [phone] Ak jose osorio [address] [place] [address] Medical Office Building 2020-07-08 2020-07-08 Outpatient Becca FLORES [facility] [id number] Univers 16:10:00 16:10:00 [facility] 2020-06-22 2020-06-22 [facility] [id number] Univers 08:05:00 10:53:00 Encounter Todd Valles [id number] [id number] [id number] [address] 2020-06-21 2020-06-21 Laboratory Only, Adc Test [facility] 1.2.840. 114 [id number] Univers 10:21:28 10:36:28 Only Todd Huerta 350.1.13.1 0 [id number] [place] [phone] [facility] [address] 2020-06-21 2020-06-21 Outpatient R SAAD [facility] [id number] Univers 10:30:00 10:30:[address] [facility] 2020-06-21 2020-06-21 [facility] [id number] Univers 10:30:00 10:30:00 [facility] 2020-06-21 2020-06-21 Orders Doctor PEREZ 1.2.840.114 [id number] Univers 00:00:00 00:00:00 Only Unassigned, LAUREN [id number] ity of [place] [facility] [id number] [place] as [phone] [facility] [address] 2020-06-10 2020-06-10 Outpatient Becca FLORES [facility] [id number] Univers 16:20:00 16:20:[address] [facility] 2020-06-10 2020-06-10 Outpatient Becca FLORES [facility] [id number] Univers 16:20:00 16:07:[address] [facility] 2020-06-01 2020-06-01 Rigby, [facility] [id number] Univers 07:37:00 11:21:00 Encounter Todd Valles [id number] [id number] [id number] [address] 2020-06-01 2020-06-01 Outpatient R [facility] CHRISTOPHER [id number] Univers 07:37:00 11:21:[facility] 2020-05-31 2020-05-31 Laboratory Only, Adc Test [facility] 1.2.840. 114 [id number] Univers 10:00:17 10:15:17 Only Todd Huerta 350.1.13.1 0 it[place] of [id number] [id number] [address] 2020-05-31 2020-05-[address] [facility] [id number] Univers 10:00:00 10:00:[address] [facility] 2020-05-31 2020-05-[address] [facility] [id number] Univers 10:00:00 10:00:00 [facility] 2020-05-31 2020-05-31 Orders Doctor CHRIS 1.2.840.114 [id number] Univers 00:00:00 00:00:00 Only Unassigned, LAUREN [id number] ity of [place] [facility] [id number] [place] as [phone] [address] 2020-05-23 2020-05-23 Physician Practice Administrator Yelitza, Adc Lab Main [facility] 1.2.8 [id number] Univers 12:28:57 12:43:57 Visit Todd Huerta 350.1.13.1 0 ity of [place] [id number] [place] [phone] [address] 2020-05-23 2020-05-23 [facility] [id number] Univers 12:00:00 12:00:[address] [facility] 2020-05-23 2020-05-23 [facility] [id number] Univers 12:00:00 12:00:[address] [facility] 2020-05-23 2020-05-23 Orders Doctor CHRIS 1.2.840.114 [id number] Univers 00:00:00 00:00:00 Only Unassigned, LAUREN [id number] ity of [place] [facility] [id number] [place] as [phone] [address] 2019-10-19 2019-10-19 Outpatient Juanita [place] 30 [id number] Common 11:15:00 11:15:00 t Specialty/U Sp leonela Specialty rology - [facility] 2019-07-31 2019-07-31 Outpatient Juanita [place] 29 [id number] Common 10:45:00 10:45:00 t Specialty/U Sp leonela Specialty rology - [facility] 2019-07-27 2019-07-27 Outpatient Juanita [place] 29 [id number] Common 15:46:00 15:46:00 t Specialty/U Sp leonela Specialty rology - [facility] 2019-07-24 2019-07-24 Outpatient Juanita [place] 29 [id number] Common 13:00:00 13:00:00 t Specialty/U Sp leonela Specialty rology - [facility] Results Test Description Test Time Test Comments Results Result Comments Source POCT URINALYSIS, INSTRUMENT 2022-07-09 17:30:00 Test Item Value Reference Range Interpretation Comme nts POCT U SP GRAV (test code = 3255) 1.020 mg/dl 1.005-1.025 POCT PH U (test code = 3254) 5.0 mg/dl 5-8 POCT U LEUK EST (test code = 3263) negative Negative - Negative POCT U NIT (test code = 3262) negative Negative - Negative POCT U PROT (test code = 3259) negative Negative - Negative POCT U GLU (test code = 3256) negative Negative - Negative POCT U KETONE (test code = 3258) negative Negative - Negative POCT U UROBILI (test code = 3260) 0.2 mg/dl 0.2-1 POCT U BILI (test code = 3261) negative Negative - Negative POCT U BLD (test code = 3257) negative Negative - Negative POCT U COLOR (test code = 3266) yellow POCT U APPEAR (test code = 3267) clear [facility] URINALYSIS, [id number] 17:30:00 Test Item Value Reference Range Interpretation Comments POCT U SP GRAV (test code = 1.020 mg/dl 1.005-1.025 3255) POCT PH U (test code = 3254) 5.0 mg/dl 5-8 POCT U LEUK EST (test code = negative Negative - Negative 3263) POCT U NIT (test code = 3262) negative Negative - Negative POCT U PROT (test code = negative Negative - Negative 3259) POCT U GLU (test code = 3256) negative Negative - Negative POCT U KETONE (test code = negative Negative - Negative 3258) POCT U UROBILI (test code = 0.2 mg/dl 0.2-1 3260) POCT U BILI (test code = negative Negative - Negative 3261) POCT U BLD (test code = 3257) negative Negative - Negative POCT U COLOR (test code = yellow 3266) POCT U APPEAR (test code = clear 3267) [facility] URINALYSIS, [id number] 17:27:00 Test Item Value Reference Range Interpretation Comments POCT U SP GRAV (test code = 1.020 mg/dl 1.005-1.025 3255) POCT PH U (test code = 3254) 0.2 mg/dl 5-8 A POCT U LEUK EST (test code = negative Negative - Negative 3263) POCT U NIT (test code = 3262) negative Negative - Negative POCT U PROT (test code = negative Negative - Negative 3259) POCT U GLU (test code = 3256) negative Negative - Negative POCT U KETONE (test code = negative Negative - Negative 3258) POCT U UROBILI (test code = 0.2 mg/dl 0.2-1 3260) POCT U BILI (test code = negative Negative - Negative 3261) POCT U BLD (test code = 3257) negative Negative - Negative POCT U COLOR (test code = yellow 3266) POCT U APPEAR (test code = clear 3267) Lab Interpretation (test code Abnormal = 77840-9) [facility] URINALYSIS, [id number] 17:27:00 Test Item Value Reference Range Interpretation Comments POCT U SP GRAV (test code = 1.020 mg/dl 1.005-1.025 3255) POCT PH U (test code = 3254) 0.2 mg/dl 5-8 A POCT U LEUK EST (test code = negative Negative - Negative 3263) POCT U NIT (test code = 3262) negative Negative - Negative POCT U PROT (test code = negative Negative - Negative 3259) POCT U GLU (test code = 3256) negative Negative - Negative POCT U KETONE (test code = negative Negative - Negative 3258) POCT U UROBILI (test code = 0.2 mg/dl 0.2-1 3260) POCT U BILI (test code = negative Negative - Negative 3261) POCT U BLD (test code = 3257) negative Negative - Negative POCT U COLOR (test code = yellow 3266) POCT U APPEAR (test code = clear 3267) Lab Interpretation (test code Abnormal = 20045-1) [facility] URINALYSIS, [id number] 16:31:00 Test Item Value Reference Range Interpretation Comments POCT U SP GRAV (test code = 1.025 mg/dl 1.005-1.025 3255) POCT PH U (test code = 3254) 5.5 mg/dl 5-8 POCT U LEUK EST (test code = small Negative - Negative 3263) POCT U NIT (test code = 3262) positive Negative - Negative POCT U PROT (test code = negative Negative - Negative 3259) POCT U GLU (test code = 3256) negative Negative - Negative POCT U KETONE (test code = negative Negative - Negative 3258) POCT U UROBILI (test code = 0.2 mg/dl 0.2-1 3260) POCT U BILI (test code = negative Negative - Negative 3261) POCT U BLD (test code = 3257) negative Negative - Negative POCT U COLOR (test code = yelow 3266) POCT U APPEAR (test code = clear 3267) Lab Interpretation (test code Abnormal = 09397-4) [facility] URINALYSIS, [id number] 16:31:00 Test Item Value Reference Range Interpretation Comments POCT U SP GRAV (test code = 1.025 mg/dl 1.005-1.025 3255) POCT PH U (test code = 3254) 5.5 mg/dl 5-8 POCT U LEUK EST (test code = small Negative - Negative 3263) POCT U NIT (test code = 3262) positive Negative - Negative POCT U PROT (test code = negative Negative - Negative 3259) POCT U GLU (test code = 3256) negative Negative - Negative POCT U KETONE (test code = negative Negative - Negative 3258) POCT U UROBILI (test code = 0.2 mg/dl 0.2-1 3260) POCT U BILI (test code = negative Negative - Negative 3261) POCT U BLD (test code = 3257) negative Negative - Negative POCT U COLOR (test code = yelow 3266) POCT U APPEAR (test code = clear 3267) Lab Interpretation (test code Abnormal = 98439-0) [facility] URINALYSIS, [id number] 16:31:00 Test Item Value Reference Range Interpretation Comments POCT U SP GRAV (test code = 1.025 mg/dl 1.005-1.025 3255) POCT PH U (test code = 3254) 5.5 mg/dl 5-8 POCT U LEUK EST (test code = small Negative - Negative 3263) POCT U NIT (test code = 3262) positive Negative - Negative POCT U PROT (test code = negative Negative - Negative 3259) POCT U GLU (test code = 3256) negative Negative - Negative POCT U KETONE (test code = negative Negative - Negative 3258) POCT U UROBILI (test code = 0.2 mg/dl 0.2-1 3260) POCT U BILI (test code = negative Negative - Negative 3261) POCT U BLD (test code = 3257) negative Negative - Negative POCT U COLOR (test code = yelow 3266) POCT U APPEAR (test code = clear 3267) Lab Interpretation (test code Abnormal = 05334-9) [facility] Notes Date/Time Note Provider Source 2023-02-11 13:35:06-00:00 Formatting of this note migh t be different from the original. Mari Canela MA [facility] Spoke with patients , patient needs an offic e visit . Transferred call to PSS to schedule appointment. Electronically signed by Mari Canela MA at 04/2023 1:38 PM CDT 2023-02-11 10:20:15-00:00 Formatting of this note migh t be different from the original. Regina Perea [facility] Pt's is needing some as sistance with catheter removal. Pt has appt tomorrow with Shirley but his states he cannot get up or walk. Needing orders for Home Health Please advise 23 10:24 AM CDT 2023-02-08 12:52:10-00:00 Formatting of this note migh t be different from the original. Regina Perea [facility] Pt called back to schedule for Saturday. 23 12:52 PM CDT 2023-02-08 12:42:18-00:00 Formatting of this note migh t be different from the original. [facility] Left voicemail to schedule nurse visit 23 12:43 PM CDT 2023-02-07 13:24:07-00:00 Formatting of this note migh t be different from the original. Kim Jensen [facility] Stew Lizarraga is a 83 year old male Patient calling for appt - has catheter that nee ds to be removed Electronically signed by Kim Jensen at 2022 1:25 PM CDT
[2023-02-17 14:38] LABS: Absolute Lymphocytes (CBC) 0.4 K/uL (0.7-4.9); Hematocrit 46.1 % (39.6-49.0); Lymphocytes % 2.9 % (15.3-44.8); MCV 96.8 fL (80-100); MPV 7.8 fL (7.6-11.3); Platelets 284 thou/uL (152-406); RBC Red Blood Cell Count 4.76 M/uL (4.33-5.43)
[2023-02-17 14:48] LABS: Protime INR 2.46
[2023-02-17 15:05] LABS: Albumin 3.1 g/dL (3.4-5.0); Bilirubin Direct 0.2 mg/dL (0-0.2); Bilirubin Indirect, Calculated 0.2 mg/dL (0.2-0.8); Bilirubin Total 0.4 mg/dL (0.2-1.0); Potassium 3.7 mEq/L (3.5-5.1); Protein, Total 6.7 g/dL (6.4-8.2)
[2023-02-17 15:12] LABS: Blood Morphology Comment NOT SEEN (NOT SEEN); Platelet Estimate ADEQ; White Blood Cell Scan OK (OK)
--- NOTE | 2023-02-17 15:28 | RAD REPORT ---
EXAM DESCRIPTION: Lex Single View02/17/2023 2:33 pm CLINICAL HISTORY: DYSPNEA COMPARISON: No comparisons TECHNIQUE: Portable AP view of the chest. FINDINGS: Central interstitial prominence. Left basal opacity, may reflect pleural effusion, atelect asis, or airspace disease, or a combination of these. Left hemidiaphragm appears to be elevated. No p neumothorax or right-sided effusion. Heart is moderately enlarged. Mediastinal contours are unremarka ble allowing for some patient rotation. IMPRESSION: Central interstitial prominence, may reflect central congestion/ CHF. Left basilar airspace opacity, could represent atelectasis, pneumonia, pleural effusion, or a combina tion of these.
[2023-02-17] MEDS ORDERED: NA CHLORIDE 0.9% 500 ML ONE (16:20)
[2023-02-17] MEDS ORDERED: AZITHROMYCIN 500 MG INJ IVPB ONE (16:27)
[2023-02-17] MEDS ORDERED: NA CHLORIDE 0.9% 250 ML ONE (16:27)
[2023-02-17] MEDS ORDERED: CEFTRIAXONE 1000 MG/VIAL ONE (16:27)
[2023-02-17] MEDS ORDERED: FUROSEMIDE 40 MG/4 ML VIAL IV SCH (17:14)
--- NOTE | 2023-02-17 17:15 | EDPHYS ---
Physician Documentation [facility] Name: Stew Guzman Age: 83 yrs Sex: Male : 1940 Arrival Date: 02/17/2023 Time: 13:33 Bed IW10 Private MD: ED Physician Caprice Alvarado HPI: 02/17 15:56 This 83 yrs old Unknown Male presents to ER via EMS with complaints of Shortness Of ci Breath. 15:57 Patient is a 83-year-old male with PMH CHF, A-fib, UTI who presents to the ED with ci chief complaint of generalized weakness, not feeling well. Patient endorses shortness of breath that began today. He has been spitting up. Patient also currently being treated for urinary tract infection. Upon EMS arrival, patient was hypoxic and hypotensive. . Historical: - Allergies: 13:53 Sulfa (Sulfonamide Antibiotics); me1 - PMHx: 13:53 Congestive heart failure; atrial fibrillation; uti; me1 - Immunization history:: Adult Immunizations up to date. - Social history:: Smoking status: Patient/guardian denies using tobacco, but has a distant history of tobacco abuse. ROS: 15:58 Constitutional: Negative for fever, chills, and weight loss, Eyes: Negative for injury, ci pain, redness, and discharge, ENT: Negative for injury, pain, and discharge, Neck: Negative for injury, pain, and swelling. 16:43 Cardiovascular: Negative for chest pain, palpitations. Positive edema, Respiratory: ci Positive for shortness of breath. No cough, wheezing, and pleuritic chest pain, Abdomen/GI: Negative for abdominal pain, nausea, vomiting, diarrhea, and constipation, : Negative for injury, bleeding, discharge, and swelling. 16:43 All other systems are negative. Exam: 16:43 Constitutional: This is a well developed, well nourished patient who is awake, alert, ci and in no acute distress. Head/Face: Normocephalic, atraumatic. Eyes: Pupils equal round and reactive to light, extra-ocular motions intact. Lids and lashes normal. Conjunctiva and sclera are non-icteric and not injected. Cornea within normal limits. Periorbital areas with no swelling, redness, or edema. ENT: Nares patent. No nasal discharge, no septal abnormalities noted. Tympanic membranes are normal and external auditory canals are clear. Oropharynx with no redness, swelling, or masses, exudates, or evidence of obstruction, uvula midline. Mucous membranes moist. Neck: Trachea midline, no thyromegaly or masses palpated, and no cervical lymphadenopathy. Supple, full range of motion without nuchal rigidity, or vertebral point tenderness. No Meningismus. Chest/axilla: Normal chest wall appearance and motion. Nontender with no deformity. No lesions are appreciated. Cardiovascular: Regular rate and rhythm with a normal S1 and S2. No gallops, murmurs, or rubs, no JVD. No pulse deficits. Respiratory: Lungs have equal breath sounds bilaterally, clear to auscultation and percussion. No rales, rhonchi or wheezes noted. + increased work of breathing, with mild retractions Abdomen/GI: Soft, non-tender, with normal bowel sounds. No distension or tympany. No guarding or rebound. No evidence of tenderness throughout. Skin: Warm, dry with normal turgor. Normal color with no rashes, no lesions, and no evidence of cellulitis. MS/ Extremity: Pulses equal, no cyanosis. Neurovascular intact. Full, normal range of motion. Neuro: Awake and alert, GCS 15, oriented to person, place, time, and situation. Cranial nerves II-XII grossly intact. Motor strength 5/5 in all extremities. Sensory grossly intact. Cerebellar exam normal. Normal gait. Psych: Awake, alert, with orientation to person, place and time. Behavior, mood, and affect are within normal limits. Vital Signs: 13:48 BP 99 / 64; Pulse 101; Resp 30; Temp 97.4(O); Pulse Ox 97% on NRB at 15 lpm; me1 15:00 BP 101 / 74; Pulse 98; Resp 27; Pulse Ox 93% on NRB \T\ 15 lpm; me1 16:00 BP 132 / 87; Pulse 95; Resp 25; Pulse Ox 98% on 4 lpm NC; me1 17:00 BP 115 / 57; Pulse 98; Resp 23; Pulse Ox 98% on 2 lpm NC; me1 19:00 BP 115 / 88; Pulse 87; Resp 25; Pulse Ox 98% on 2 lpm NC; me1 20:15 BP 114 / 81; Pulse 86; Resp 24; Pulse Ox 97% on 2 lpm NC; me1 20:17 Weight 108.86 kg; Height 5 ft. 9 in. ; me1 20:17 Body Mass Index 35.44 (108.86 kg, 175.26 cm) me1 MDM: 13:54 Patient medically screened. ci 16:43 Differential Diagnosis ACS, pneumonia, CHF exacerbation, PE, Sepsis, COPD. Data ci reviewed: vital signs, nurses notes, EKG. Management of patient was discussed with the following: Hospitalist: Spoke with Dr. Clifton was excepted patient for admission.. I considered the following discharge prescriptions or medication management in the emergency department Considered diuresis with IV Lasix, however patient's blood pressure is soft, possibly septic. Independent interpretation of the following test(s) in the Emergency Department EKG: See my EKG interpretation above X-Ray: My interpretation is A-fib, rate of 99, no acute ischemic changes. 17:00 Care significantly affected by the following chronic conditions: Congestive Heart ci Failure, Afib. ED course: Patient arrived on a NRB, weaned to 2 L NC. IV lasix was considered but patient was initially hypotensive, possible sepsis. 17:12 Consideration of Admission/Observation Patient was admitted/placed on observation. ci Historians other than the Patient: EMS: . Spouse/Significant Other: . 02/17 13:56 Order name: Basic Metabolic Panel; Complete Time: 15:39 ci 02/17 15:39 Interpretation: CRE 1.66. ci 02/17 13:56 Order name: CBC with Diff; Complete Time: 15:39 ci 02/17 15:39 Interpretation: WBC 14.70. ci 02/17 13:56 Order name: LFT's; Complete Time: 15:39 ci 02/17 13:56 Order name: NT PRO-BNP; Complete Time: 15:39 ci 02/17 15:40 Interpretation: Abnormal: NT PRO-BNP 1846. ci 02/17 13:56 Order name: Troponin HS; Complete Time: 15:39 ci 02/17 14:12 Order name: Blood Culture Adult (2) ci 02/17 14:12 Order name: Lactate w/ 2H reflex if indic.; Complete Time: 15:39 ci 02/17 15:40 Interpretation: Abnormal: LAC 4.0. ci 02/17 14:12 Order name: Protime (+inr); Complete Time: 15:39 ci 02/17 14:12 Order name: Ptt, Activated; Complete Time: 15:39 ci 02/17 15:16 Order name: CBC Smear Scan EDIA 02/17 17:16 Order name: CBC with Automated Diff EDMS 02/17 17:16 Order name: CBC with Automated Diff EDMS 02/17 17:16 Order name: Comprehensive Metabolic Panel EDIA 02/17 17:16 Order name: Comprehensive Metabolic Panel EDIA 02/17 17:17 Order name: Urinalysis W/Microscopic EDIA 02/17 17:19 Order name: Protime (+INR) EDIA 02/17 17:21 Order name: ABG Arterial Blood Gas EDIA 02/17 17:43 Order name: Lactate Sepsis 2 HR Follow-up; Complete Time: 17:50 EDIA 02/17 13:56 Order name: XRAY Chest (1 view); Complete Time: 15:39 ci 02/17 17:09 Interpretation: Per Radiologist's finding(s): IMPRESSION: Central interstitial ci prominence, may reflect central congestion/ CHF. Left basilar airspace opacity, could represent atelectasis, pneumonia, pleural effusion, or a combination of these. 02/17 17:20 Order name: BiPap ([employer] Only) EDIA 02/17 19:38 Order name: US EDIA 02/17 13:56 Order name: EKG; Complete Time: 13:56 ci 02/17 17:09 Interpretation: EKG shows A-fib, heart rate 99, no acute ischemic changes. ci 02/17 17:16 Order name: Heart Healthy EDIA 02/17 13:56 Order name: Cardiac monitoring; Complete Time: 13:58 ci 02/17 13:56 Order name: EKG - Nurse/Tech; Complete Time: 14:11 ci 02/17 13:56 Order name: IV Saline Lock; Complete Time: 14:00 ci 02/17 13:56 Order name: Labs collected and sent; Complete Time: 21:08 ci 02/17 13:56 Order name: O2 Per Protocol; Complete Time: 14:00 ci 02/17 13:56 Order name: O2 Sat Monitoring; Complete Time: 14:00 ci Administered Medications: 16:17 Drug: Rocephin IV 1 grams Route: IV; Rate: per protocol; Site: right antecubital; me1 16:31 Follow up: Response: No adverse reaction; IV Status: Infusion continued me1 16:17 Drug: AZITHromycin IVPB 500 mg Route: IVPB; Infused Over: 1 hrs; Site: right md1 antecubital; 20:08 Follow up: Response: No adverse reaction; IV Status: Completed infusion me1 16:30 Drug: NS 0.9% IV 500 ml Route: IV; Rate: 250 ml/hr; Site: right antecubital; me1 17:26 Follow up: IV Status: Completed infusion; IV Intake: 500ml me1 Disposition Summary: 02/17/23 17:14 Hospitalization Ordered Hospitalization Status: Inpatient Admission ci Provider: Ronald Grimes Location: Telemetry/[facility] (Inpatient) ci Condition: Serious ci Problem: new ci Symptoms: are unchanged ci Bed/Room Type: Standard ci Room Assignment: 406(02/17/23 19:21) cg Diagnosis - Unspecified combined systolic (congestive) and diastolic (congestive) heart failure ci - Acute kidney failure, unspecified ci - Pneumonia, unspecified organism ci Forms: - Medication Reconciliation Form ci - SBAR form ci - Leadership Thank You Letter ci Critical care time excluding procedures: 17:00 Critical care time: Bedside Care: 35 minutes. Total time: 35 minutes ci Signatures: Dispatcher [employer] EDMS Yobani Connors, URIEL-C ROAST MASTER-Cla1 Luisa Villarreal, RN RN Mansi Loyd RN RN md1 Caprice Alvarado ci Corrections: (The following items were deleted from the chart) 15:49 15:48 No PTHX, LLL opacity. ci ci 17:09 15:49 Per Radiologist's finding(s): IMPRESSION: Central interstitial prominence, may ci reflect central congestion/ CHF. Left basilar airspace opacity, could represent atelectasis, pneumonia, pleural effusion, or a combination of these. ci 19:19 17:14 ci cg 19:21 19:19 430 cg cg 02/18 19:02 02/17 15:57 Patient is a 83-year-old male with PMH CHF, A-fib, UTI who presents to the ED with chief complaint of generalized weakness, not feeling well. Patient endorses shortness of breath that began today. He has been spitting. Patient also currently being treated for urinary tract infection. Upon EMS arrival, patient was hypoxic and hypotensive. . ci 02/18 19:10 02/17 16:43 Differential Diagnosis ACS, pneumonia, CHF exacerbation, PE. ci ci 02/18 19:40 02/17 16:43 I considered the following discharge prescriptions or medication management ci in the emergency department Consider diuresis, however patient's blood pressure is soft.. ci
--- NOTE | 2023-02-17 17:15 | ER ---
Nurse's Notes [facility] Name: Stew Guzman Age: 83 yrs Sex: Male : 1940 Arrival Date: 02/17/2023 Time: 13:33 Bed [id number] Private MD: Diagnosis: Unspecified combined systolic (congestive) and diastolic (congestive) heart failure;Acute kidney failure, unspecified;Pneumonia, unspecified organism Presentation: 02/17 13:48 Chief complaint: EMS states: toned out to house for shortness of breath, n/v, "not me1 feeling well" since this morning. Room air sat is 76%, 54/31, hr 107, RR 27, FSBS 102. O2 at 15 lpm via NRB and sat increased to 98%. Reglan 5 mg IV and NS 900 ml brought BP up to 121/64. Coronavirus screen: Vaccine status: Patient reports receiving the 2nd dose of the covid vaccine. difficulty breathing, nausea, shortness of breath. Ebola Screen: No symptoms or risks identified at this time. Initial Sepsis Screen: Does the patient meet any 2 criteria? RR > 20 per min. HR > 90 bpm. Yes Does the patient have a suspected source of infection? Yes: Dysuria/Frequency/Urgency/UTI. Risk Assessment: Do you want to hurt yourself or someone else? Patient reports no desire to harm self or others. Onset of symptoms was February 17, 2023. 13:48 Method Of Arrival: EMS [facility] [place] 13:48 Acuity: JOSE MARTIN 2 me1 13:57 Initial Sepsis Screen: If YES to both, name of provider notified: Caprice Alvarado. sc1 Triage Assessment: 13:53 General: Appears distressed, obese, Behavior is cooperative, appropriate for age, me1 anxious, Reports feeling ill for fatigue for 0-12 hours, SOB, nauseated and feeling sick since this morning. Pain: Denies pain. Neuro: Level of Consciousness is awake, alert, obeys commands, Oriented to person, place, time, situation, Appropriate for age. Cardiovascular: Patient's skin is warm and dry. Respiratory: Airway is patent Respiratory effort is even, labored, Respiratory pattern is symmetrical, tachypnea. Historical: - Allergies: 13:53 Sulfa (Sulfonamide Antibiotics); me1 - PMHx: 13:53 Congestive heart failure; atrial fibrillation; uti; me1 - Immunization history:: Adult Immunizations up to date. - Social history:: Smoking status: Patient/guardian denies using tobacco, but has a distant history of tobacco abuse. Screenin:56 [facility] ED Fall Risk Assessment (Adult) History of falling in the last 3 months, me1 including since admission No falls in past 3 months (0 pts) Confusion or Disorientation No (0 pts) Intoxicated or Sedated No (0 pts). Abuse screen: Denies threats or abuse. Nutritional screening: No deficits noted. Tuberculosis screening: No symptoms or risk factors identified. Assessment: 13:56 General: See triage assessment.. me1 16:00 General: changed from 15 lpm via NRB to NC at 4 LPM. o2 sat 98%. Weaned down to 2 lpm me1 via nc- sat remains at 97-98%.. 20:22 General: Called patient's , Reina at [phone] and informed her patient is me1 going to room 406. Verbalized understanding.. Vital Signs: 13:48 BP 99 / 64; Pulse 101; Resp 30; Temp 97.4(O); Pulse Ox 97% on NRB at 15 lpm; me1 15:00 BP 101 / 74; Pulse 98; Resp 27; Pulse Ox 93% on NRB \\T\\ 15 lpm; me1 16:00 BP 132 / 87; Pulse 95; Resp 25; Pulse Ox 98% on 4 lpm NC; me1 17:00 BP 115 / 57; Pulse 98; Resp 23; Pulse Ox 98% on 2 lpm NC; me1 19:00 BP 115 / 88; Pulse 87; Resp 25; Pulse Ox 98% on 2 lpm NC; me1 20:15 BP 114 / 81; Pulse 86; Resp 24; Pulse Ox 97% on 2 lpm NC; me1 20:17 Weight 108.86 kg; Height 5 ft. 9 in. ; me1 20:17 Body Mass Index 35.44 (108.86 kg, 175.26 cm) me1 ED Course: 13:41 Patient arrived in ED. ds4 13:48 Mansi Loyd, YANY is Primary Nurse. me1 13:53 Triage completed. me1 13:53 Arm band placed on Patient placed in an exam room. me1 13:54 Caprice Alvarado is Attending Physician. ci 13:56 Patient has correct armband on for positive identification. Bed in low position. Call me1 light in reach. Side rails up X2. Provided Education on: POC. Verbalized understanding.. 13:56 No provider procedures requiring assistance completed. Maintain EMS IV. Dressing me1 intact. Good blood return noted. Site clean \\T\\ dry. Gauge \\T\\ site: 20 gauge to RAC. 14:30 Inserted saline lock: 20 gauge in right antecubital area, using aseptic technique. me1 14:30 Lactate w/ 2H reflex if indic. Sent. me1 14:30 Protime (+inr) Sent. me1 14:30 Ptt, Activated Sent. me1 14:30 Basic Metabolic Panel Sent. me1 14:30 CBC with Diff Sent. me1 14:30 LFT's Sent. me1 14:30 NT PRO-BNP Sent. me1 14:30 Troponin HS Sent. me1 14:35 XRAY Chest (1 view) In Process Unspecified. EDMS 17:13 Ronald Grimes MD is Hospitalizing Provider. ci 20:22 Patient admitted, IV remains in place. me1 Administered Medications: 16:17 Drug: Rocephin IV 1 grams Route: IV; Rate: per protocol; Site: right antecubital; me1 16:31 Follow up: Response: No adverse reaction; IV Status: Infusion continued me1 16:17 Drug: AZITHromycin IVPB 500 mg Route: IVPB; Infused Over: 1 hrs; Site: right sc1 antecubital; 20:08 Follow up: Response: No adverse reaction; IV Status: Completed infusion me1 16:30 Drug: NS 0.9% IV 500 ml Route: IV; Rate: 250 ml/hr; Site: right antecubital; me1 17:26 Follow up: IV Status: Completed infusion; IV Intake: 500ml me1 Medication: 13:56 VIS not applicable for this client. me1 Intake: 17:26 IV: 500ml; Total: 500ml. me1 Outcome: 17:14 Decision to Hospitalize by Provider. ci 20:21 Admitted to Med/surg accompanied by tech, via stretcher, room 406, with oxygen, with me1 chart, Report called to YANY Bravo 20:21 Condition: stable 20:21 Instructed on the need for admit. 20:23 Admitted to Med/surg me1 23:12 Patient left the ED. as6 Signatures: Dispatcher [employer] Shon Contreras ds4 Royer Willis RN RN as6 Mansi Loyd RN RN me1 Caprice Alvarado
--- NOTE | 2023-02-17 17:26 | P.HP ---
Certification for Inpatient With expected LOS: >2 Midnights Patient will require the following post-hospital care: Shelter Practitioner: I am a practitioner with admitting privileges, knowledge of patient current condition, hospital course, and medical plan of care. Services: Services provided to patient in accordance with Admission requirements found in Title 42 Section 412.3 of the Code of Federal Regulations Patient History Date of Service: 02/17/23 Reason for admission: Shortness of breath History of Present Illness: Patient is 83 years of age very debilitated worsened over the past 2 weeks unable to ambulate history of recurrent UTIs he has been to the [facility] edition he has had some falls with fractures of his bone worse in the right leg he recently had a toe fracture and was in a boot apparently today got much worse developed more shortness of breath patient also had a urinary catheter inserted has been on multiple antibiotic history of congestive heart failure and A-fib under the care of Dr. Champagne in [place] denies any fever Past 2 weeks he is unable to ambulate is very weak addition patient has spinal stenosis Allergies No Known Allergies Allergy (Unverified 03/25/13 14:10) Home Medications: Aspirin Enteric Coated [ASPIRIN 81 MG EC*] 81 mg PO DAILY 03/25/13 Docusate [Colace Cap*] 100 mg PO BID 03/25/13 Flaxseed Oil [Flaxseed] 1 tab PO DAILY 03/25/13 Methylcellulose [Citrucel] 1 tbsp PO DAILY 03/25/13 Olmesartan/Hydrochlorothiazide [Benicar Hct 40-25 mg Tablet] 1 tab PO DAILY 03/25/13 Thiamine HCl [Vitamin B-1*] 250 mg PO DAILY 03/25/13 [place]-3 Fatty Acids/Fish Oil [Fish Oil 1,000 mg Softgel] 1 each PO DAILY 03/26/13 Baclofen [Lioresal*] 10 mg PO BEDTIME #30 tab 04/16/13 Hydrocodone 5/APAP 325 [[place] 5/325*] 1 tab PO Q4H PRN #30 tab 04/16/13 Potassium Oral Tab [Klor-Con 10 mEq Tab*] 20 meq PO DAILY #60 tab 04/16/13 Verapamil Sr [Calan SR Or Isoptin SR*] 240 mg PO BID #0 tab 04/16/13 traMADol HCL [Ultram*] 50 mg PO Q6HP PRN #30 tab 04/16/13 - Past Medical/Surgical History Diabetic: No -: HTN -: 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, SPINE, ELBOW & SHOULDER) -: ARTHRITIS -: Congestive heart failure -: Atrial fibrillation -: HEART CATHETERIZATION -: PROSTATE SX -: L KNEE SURGERY - Social History Alcohol use: No CD- Drugs: No Caffeine use: Yes Review of Systems General: Weakness Respiratory: Shortness of Breath Gastrointestinal: Nausea Musculoskeletal: Other (Unable to ambulate) Physical Examination - Vital Signs Temperature: 98 F Blood Pressure: 128/72 Pulse: 83 Respirations: 17 Pulse Ox (%): 100 - Physical Exam General: Alert, Moderate distress HEENT: Atraumatic Neck: Supple Respiratory: Clear to auscultation bilaterally, Diminished, Crackles/rales Cardiovascular: No edema (Minimal edema), Normal pulses, Normal S1 S2 Gastrointestinal: Normal bowel sounds, Soft and benign Musculoskeletal: No clubbing, No swelling, No contractures Integumentary: No breakdown Neurological: Normal speech - Studies Laboratory Data (last 24 hrs) 02/17/23 02/17/23 02/17/23 14:24 14:24 14:24 WBC 14.70 H Hgb 15.4 Hct 46.1 Plt Count 284 PT 27.1 H INR 2.46 APTT 33.2 Sodium 134 L Potassium 3.7 BUN 28 H Creatinine 1.66 H Glucose 114 H Total Bilirubin 0.4 AST 22 ALT 36 Alkaline Phosphatase 64 Assessment and Plan - Problems (Diagnosis) (1) Sepsis Current Visit: Yes Status: Acute Plan: Patient is 83 years of age admitted with worsening dyspnea lactic acidosis levels are high at 4 worsening renal function creatinine 1.66 White count is mildly elevated chest x-ray shows some cardiomegaly is rotated urinalysis is pending start patient on meropenem high risk for resistant organism as he is on multiple antibiotics for recurrent UTI infection we will give another liter of IV fluids monitor electrolytes as he is tachypneic we will start him on some BiPAP for some additional respiratory support Qualifiers: Sepsis type: sepsis due to unspecified organism (2) Congestive heart failure Current Visit: Yes Status: Acute Plan: History of congestive heart failure patient is on olmesartan Lasix and spironolactone at home we will order a 2D echocardiogram hold Lasix for now Qualifiers: Heart failure chronicity: unspecified (3) Septic shock Current Visit: Yes Status: Acute Plan: PT was hypotensive in field was bolsed 1.5 L - Advance Directives Does patient have a Living Will: No Does patient have a Durable POA for Healthcare: No
[2023-02-17] MEDS ORDERED: NA CHLORIDE 0.9% 1,000 ML IV ONE (17:28)
[2023-02-17 17:43] LABS: Arterial Blood Carboxyhemoglob 0.9 % (0-1.5); Blood Gas Oxyhemoglobin 91.1 % (94-97); Blood O2 Saturation 93.5 % (92-98.5)
--- NOTE | 2023-02-17 19:37 | RAD REPORT ---
EXAM DESCRIPTION: US - Renal Ultrasound-Complete - 02/17/2023 6:11 pm CLINICAL HISTORY: Renal failure COMPARISON: RP EXAM COMPLETE dated 05/03/2015 TECHNIQUE: Sonographic grayscale and color flow images of the kidneys and bladder were obtained. FINDINGS: Both kidneys are normal in size, shape and echotexture. The right kidney measures 10.2 cm in length. No hydronephrosis, focal mass or perinephric fluid. The left kidney measures 10.6 cm in length. No hydronephrosis, focal mass or perinephric fluid. No echogenic calculi. The urinary bladder is incompletely distended limiting evaluation. IMPRESSION: Unremarkable ultrasound of the kidneys. Urinary bladder is decompressed limiting evaluation.
[2023-02-17] MEDS ORDERED: NA CHLORIDE 0.9% 500 ML IV ONE (20:58)
[2023-02-17] MEDS: MELATONIN 5 MG TABLET PO SCH (22:19)
[2023-02-17] MEDS: Meropenem 1,000 MG in NA CHLORIDE 0.9% 100 ML IV SCH (22:23)
[2023-02-17] MEDS: ACETAMINOPHEN 325 MG TABLET PO PRN (23:22)
[2023-02-18 01:07] VITALS: BMI 35.4
[2023-02-18 05:55] LABS: Specific Gravity 1.019 (1.005-1.030); Urine Bacteria <20 /HPF (<20); Urine Bilirubin NEGATIVE (Negative); Urine Blood Negative (Negative); Urine Clarity Extremely Turbid (Clear); Urine Color Yellow (Yellow); Urine Glucose NEGATIVE (Negative); Urine Mucus Slight /HPF (None Seen); Urine Protein TRACE (Negative); Urine RBC <5 /HPF (None Seen); Urine Urobilinogen Normal (Normal); Urine WBC Clump Rare /HPF (None Seen)
[2023-02-18 06:40] LABS: Absolute Lymphocytes (CBC) 1.5 K/uL (0.7-4.9); Hematocrit 40.9 % (39.6-49.0); Lymphocytes % 7.1 % (15.3-44.8); MCV 95.2 fL (80-100); Platelets 237 thou/uL (152-406)
[2023-02-18 06:56] LABS: Albumin 2.9 g/dL (3.4-5.0); Bilirubin Total 0.4 mg/dL (0.2-1.0); Potassium 4.6 mEq/L (3.5-5.1); Protein, Total 6.5 g/dL (6.4-8.2)
[2023-02-18 08:00] LABS: Blood Morphology Comment NOT SEEN (NOT SEEN); Platelet Estimate ADEQ; White Blood Cell Scan OK (OK)
[2023-02-18] MEDS: Meropenem 1,000 MG in NA CHLORIDE 0.9% 100 ML IV SCH ×2 (08:42→22:00)
--- NOTE | 2023-02-18 10:02 | RAD REPORT ---
EXAM DESCRIPTION: Lex Single View02/18/2023 9:53 am CLINICAL HISTORY: Shortness of breath COMPARISON: February 17, 2023 FINDINGS: Mild interstitial lung opacities are unchanged Heart mildly enlarged Small left pleural effusion with basilar atelectasis IMPRESSION: These findings may indicate mild CHF
[2023-02-18] MEDS: ACETAMINOPHEN 325 MG TABLET PO PRN ×2 (11:57→22:02)
--- NOTE | 2023-02-18 14:01 | P.PN ---
Subjective Date of Service: 02/18/23 Chief Complaint: Shortness of breath Subjective: No new changes, Improving Physical Examination - Vital Signs Temperature: 98.2 F Blood Pressure: 134/75 Pulse: 84 Respirations: 16 Pulse Ox (%): 94 - Physical Exam General: Alert, Oriented x3 HEENT: Atraumatic, Normocephalic Neck: Supple Respiratory: Normal air movement Cardiovascular: Regular rate/rhythm, Normal S1 S2 Gastrointestinal: Soft and benign Musculoskeletal: No swelling Neurological: Normal speech - Studies Laboratory Data (last 24 hrs) 02/17/23 02/17/23 02/17/23 14:24 14:24 14:24 WBC 14.70 H Hgb 15.4 Hct 46.1 Plt Count 284 PT 27.1 H INR 2.46 APTT 33.2 Sodium 134 L Potassium 3.7 BUN 28 H Creatinine 1.66 H Glucose 114 H Total Bilirubin 0.4 AST 22 ALT 36 Alkaline Phosphatase 64 Assessment And Plan - Plan Sepsis: Present on admission. Deemed due to UTI and suspected pneumonia. UA is very concerning. Urine and blood cultures are pending. UTI: suspected based on au finding. we will continue empiric antibiotics. Suspected pneumonia: empiric antibiotic therapy to be continued for suspected pneumonia pending culture finalization. Chronic indwelling hidalgo catheter: we will consult urology for management recs. Disposition: Pending finalization of urine culture.
[2023-02-18] MEDS: WARFARIN SODIUM 4 MG TAB PO SCH (18:03)
--- NOTE | 2023-02-18 19:06 | EKG ---
Test Date: 2023-02-17 Test Time: 14:08:24 Radio Engineer: MEASUREMENT RESULTS: Intervals: Rate: 99 MA: QRSD: 130 QT: 366 QTc: 469 [place]: P: MA: QRS: 99 T: 62 INTERPRETIVE STATEMENTS: Atrial fibrillation Rightward axis Nonspecific intraventricular block Abnormal ECG No previous ECG available for comparison Electronically Signed On 02-18-23 19:04:07 CDT by Jovan Martin
[2023-02-18] MEDS: MELATONIN 5 MG TABLET PO SCH (22:02)
[2023-02-19 06:27] LABS: Protime INR 2.17
--- NOTE | 2023-02-19 06:56 | ECHO ---
HEIGHT: 5 ft 9 in WEIGHT: 240 lb 0 oz DATE OF STUDY: 02/18/[address]: Ronald Grimes MD 2-DIMENSIONAL: YES M.MODE: YES DOPPLER: YES COLOR FLOW: YES TDS: PORTABLE: YES DEFINITY: BUBBLE STUDY: DIAGNOSIS: POSSIBLE CONGESTIVE HEART FAILURE CARDIAC HISTORY: CATHERIZATION: SURGERY: PROSTHETIC VALVE: PACEMAKER: MEASUREMENTS (cm) DIASTOLIC (NORMALS) SYSTOLIC (NORMALS) IVSd 1.1 (0.6-1.2) LA Diam 4.3 (1.9-4.0) LVEF 50% LVIDd 4.7 (3.5-5.7) LVIDs 3.3 (2.0-3.5) %FS 29% LVPWd 1.2 (0.6-1.2) Ao Diam 3.1 (2.0-3.7) 2 DIMENSIONAL ASSESSMENT: RIGHT ATRIUM: NORMAL LEFT ATRIUM: ENLARGED RIGHT VENTRICLE: NORMAL LEFT VENTRICLE: NORMAL TRICUSPID VALVE: MILD TRICUSPID REGURGITATION MITRAL VALVE: MITRAL ANNULAR CALCIFICATION WITH MILD MITRAL REGURGITATION PULMONIC VALVE: NORMAL AORTIC VALVE: MILD AORTIC INSUFFICIENCY PERICARDIAL EFFUSION: NONE AORTIC ROOT: NORMAL LEFT VENTRICULAR WALL MOTION: NORMAL DOPPLER/COLOR FLOW: SEE BELOW COMMENTS: 1. LOW NORMAL LEFT VENTRICULAR EJECTION FRACTION 50% 2. GRADE II DIASTOLIC DYSFUNCTION 3. MILD MITRAL REGURGITATION 4. MILD TRICUSPID REGURGITATION TECHNOLOGIST: BLANQUITA MCLAUGHLIN
--- NOTE | 2023-02-19 08:54 | RAD REPORT ---
EXAM DESCRIPTION: RADChest Single View02/19/2023 5:23 am CLINICAL HISTORY: CHF? COMPARISON: Chest Single View dated 02/18/2023; Chest Single View dated 02/17/2023 TECHNIQUE: Portable AP view of the chest. FINDINGS: No pneumothorax. Central interstitial prominence and bibasilar patchy opacities with smal l left pleural effusion, stable. Findings may reflect central congestion/ CHF. Stable cardiomegaly. M ediastinal contours are unremarkable. IMPRESSION: Stable findings, as above.
[2023-02-19] MEDS: Meropenem 1,000 MG in NA CHLORIDE 0.9% 100 ML IV SCH ×2 (09:04→21:35)
[2023-02-19] MEDS: ACETAMINOPHEN 325 MG TABLET PO PRN (12:24)
[2023-02-19] MEDS ORDERED: PNEUMOCOCCAL VACCINE 0.5 ML IMVAC ONE (15:00)
[2023-02-19] MEDS: WARFARIN SODIUM 4 MG TAB PO SCH (16:23)
--- NOTE | 2023-02-19 18:11 | P.PN ---
Subjective Date of Service: 02/19/23 Chief Complaint: Shortness of breath Patient is complaining of shortness of breath. He reported generalized weakness. Physical Examination - Vital Signs Temperature: 97.9 F Blood Pressure: 106/56 Pulse: 61 Respirations: 24 Pulse Ox (%): 95 Assessment And Plan - Plan Physical Exam General: Alert, Oriented x3 HEENT: Atraumatic, Normocephalic Neck: Supple Respiratory: Normal air movement Cardiovascular: Regular rate/rhythm, Normal S1 S2 Gastrointestinal: Soft and benign Musculoskeletal: No swelling Neurological: Normal speech Diagnosis Sepsis: Present on admission. Deemed due to UTI and suspected pneumonia. UA suggest UTI. Urine culture is pending Blood culture shows no growth to date. UTI: Empiric antibiotics. Follow urine culture Pneumonia: Bibasilar patchy opacities Continue empiric antibiotics. Chronic indwelling hidalgo catheter: Continue Hidalgo catheter.
[2023-02-19] MEDS ORDERED: ALBUTEROL 2.5 MG/3 ML NEB SOL NEB PRN (18:16)
[2023-02-19] MEDS ORDERED: NA CHLORIDE 0.9% 1,000 ML IV SCH (19:00)
[2023-02-19] MEDS ORDERED: FUROSEMIDE 20 MG TABLET PO SCH (21:00)
[2023-02-19] MEDS: IPRATROPIUM BROM 0.5MG/2.5ML NEB SCH (21:30)
[2023-02-19] MEDS: MELATONIN 5 MG TABLET PO SCH (21:36)
[2023-02-20] MEDS: ACETAMINOPHEN 325 MG TABLET PO PRN (00:46)
[2023-02-20] MEDS: IPRATROPIUM BROM 0.5MG/2.5ML NEB SCH ×4 (02:00→20:00)
[2023-02-20] MEDS: SPIRONOLACTONE 25 MG TABLET PO SCH (08:27)
[2023-02-20] MEDS: Meropenem 1,000 MG in NA CHLORIDE 0.9% 100 ML IV SCH ×2 (08:27→20:06)
[2023-02-20] MEDS: HYDROCODONE/APAP 5/325 MG TAB PO SCH (08:28)
[2023-02-20 10:05] LABS: Absolute Lymphocytes (CBC) 1.5 K/uL (0.7-4.9); Lymphocytes % 14.1 % (15.3-44.8); MCV 95.6 fL (80-100); MPV 8.3 fL (7.6-11.3); Platelets 208 thou/uL (152-406); RBC Red Blood Cell Count 4.08 M/uL (4.33-5.43)
[2023-02-20 10:09] LABS: Potassium 4.3 mEq/L (3.5-5.1)
[2023-02-20 10:46] LABS: Platelet Estimate ADEQ
[2023-02-20 10:48] LABS: Blood Morphology Comment NOT SEEN (NOT SEEN)
--- NOTE | 2023-02-20 13:07 | CON ---
Date of Consultation: 02/20/2023 Reason For Consultation: Elevated BUN and creatinine. History Of Present Illness: This is a pleasant 83-year-old gentleman with significant past medical history of AFib. The patient recently admitted to [facility] with UTI, treated, recovered. The patient had recurrent UTI and worsening. The patient had urine retention. Duarte was inserted. The patient came to the hospital complaining from shortness of breath, found to have UTI with elevation in BUN and creatinine. Upon arrival to the hospital, creatinine of 2. For that reason, we have been consulted. The patient denied taking any nonsteroidal. No contrast. Past Medical History: Includes; 1. AFib. 2. Hypertension. 3. Prostate cancer. 4. Congestive heart failure. Past Surgical History: Includes; 1. Cardiac cath back in 2017, 2. Prostatectomy. 3. Left knee surgery. Social History: Denied smoking, denied drinking, denied drugs abuse. Home Medications: Include aspirin, docusate, methylcellulose, Entresto, thiamine, omega-3, baclofen, KCl, verapamil, and tramadol. Review of Systems: Head and Neck: No red eye. No ear pain. GI: No nausea. No vomiting. : No polyuria. Has urinary retention. Netsuite Consultant: Not applicable. Respiratory: Has shortness of breath. Cardiovascular: No chest pain. Endocrine: No polydipsia. Skin: No rash. Neurologic: Alert. No focality. Physical Examination: Vital Signs: Blood pressure 135/63, pulse of 75, afebrile. Chest: Crackles bilateral. Heart: S1, S2. Regular. Abdomen: Soft, nontender. Extremity: Trace edema. Neurologic: Alert. No focality. Laboratory Data: Chest x-ray, cardiomegaly with congestion. Hemoglobin 15.4 upon admission, currently 13. Upon admission; creatinine is 1.6, сергей to 2.1, today is 0.9. Sodium 135, potassium 4.3, bicarb 28, BUN 30, creatinine 0.9, calcium 9.1. Urinalysis; WBC of 20. Renal ultrasound was done and showed remarkable ultrasound, urine bladder decompressed, 10.2/10.6. Assessment And Plan: 1. Acute kidney injury secondary to cardiorenal, over volume/poor perfusion ATN, toxic ATN secondary to sepsis, recovered, resolved. Currently, the patient still on the over volume side. I am going to resume the patient on the Lasix to optimize fluid status for the patient and we will follow up. 2. Hypertension. We will utilize blood pressure for more diuresis. 3. Congestive heart failure with diastolic dysfunction, preserved ejection fraction of 50. We will try to optimize fluid status. 4. Urinary retention. We will start the patient on Flomax. We will follow up with Urology. 5. Hyponatremia, dilutional. We will resume diuresis, discontinue IV fluid. Time spent examining the patient [id number], reviewing data, lab and radiology, placing order, discussing the case with the steam conditioner operator including nursing staff and hospitalist more than 75 minutes. JACKIE Voice ID: [id number] Report ID: [id number] MTDD
--- NOTE | 2023-02-20 15:29 | P.PN ---
Subjective Date of Service: 02/20/23 Chief Complaint: Shortness of breath Patient reports persistent shortness of breath and generalized weakness. No recorded fever. Physical Examination - Vital Signs Temperature: 97.9 F Blood Pressure: 135/63 Pulse: 75 Respirations: 20 Pulse Ox (%): 94 Assessment And Plan - Plan Physical Exam General: Alert, Oriented x3 HEENT: Atraumatic, Normocephalic Neck: Supple Respiratory: Normal air movement Cardiovascular: Regular rate/rhythm, Normal S1 S2 Gastrointestinal: Soft and benign Musculoskeletal: No swelling Neurological: Normal speech Diagnosis Sepsis Deemed due to UTI and suspected pneumonia. UA suggest UTI. Urine culture: Mixed growth Blood culture shows no growth to date. Leukocytosis resolved. UTI: Empiric antibiotics. Pneumonia: Bibasilar patchy opacities Continue empiric antibiotics. Chronic indwelling hidalgo catheter: Continue Hidalgo catheter. Generalized weakness Continue PT. Anticipating disposition to skilled rehab. Atrial fibrillation Rate controlled. On warfarin. DVT prophylaxis: Warfarin
[2023-02-20] MEDS: WARFARIN SODIUM 4 MG TAB PO SCH (16:44)
[2023-02-20] MEDS: MELATONIN 5 MG TABLET PO SCH (20:07)
[2023-02-21] MEDS: IPRATROPIUM BROM 0.5MG/2.5ML NEB SCH ×4 (01:50→19:30)
[2023-02-21 06:38] LABS: Albumin 2.7 g/dL (3.4-5.0); Phosphorus 2.5 mg/dL (2.5-4.9); Potassium 4.7 mEq/L (3.5-5.1)
[2023-02-21 06:40] LABS: Absolute Lymphocytes (CBC) 1.7 K/uL (0.7-4.9); Hematocrit 39.5 % (39.6-49.0); Lymphocytes % 15.7 % (15.3-44.8); MCV 95.7 fL (80-100); MPV 8.4 fL (7.6-11.3); Platelets 203 thou/uL (152-406); RBC Red Blood Cell Count 4.12 M/uL (4.33-5.43)
[2023-02-21] MEDS ORDERED: NA CHLORIDE 0.9% 0 ML ONE (07:59)
[2023-02-21] MEDS: HYDROCODONE/APAP 5/325 MG TAB PO SCH (09:41)
[2023-02-21] MEDS: Meropenem 1,000 MG in NA CHLORIDE 0.9% 100 ML IV SCH ×2 (09:41→20:17)
[2023-02-21] MEDS: SPIRONOLACTONE 25 MG TABLET PO SCH (09:42)
[2023-02-21] MEDS: FUROSEMIDE 40 MG/4 ML VIAL IV SCH (09:43)
[2023-02-21] MEDS: TAMSULOSIN 0.4 MG SR CAP PO SCH (09:46)
--- NOTE | 2023-02-21 16:39 | P.PN ---
Subjective Date of Service: 02/21/23 Chief Complaint: Shortness of breath Patient alert and oriented. He reports improvement in shortness of breath No recorded fever. Physical Examination - Vital Signs Temperature: 98.2 F Blood Pressure: 135/88 Pulse: 88 Respirations: 20 Pulse Ox (%): 93 Assessment And Plan - Plan Physical Exam General: Alert, Oriented x3 HEENT: Atraumatic, Normocephalic Neck: Supple Respiratory: Normal air movement Cardiovascular: Regular rate/rhythm, Normal S1 S2 Gastrointestinal: Soft and benign Musculoskeletal: No swelling Neurological: Normal speech Diagnosis Sepsis Deemed due to UTI and suspected pneumonia. Patient with indwelling Hidalgo catheter UA suggest UTI. Urine culture: Mixed growth Blood culture shows no growth to date. Leukocytosis resolved. Continue antibiotics. UTI: Empiric antibiotics. Pneumonia: Bibasilar patchy opacities Continue empiric antibiotics. Chronic indwelling hidalgo catheter: Continue Hidalgo catheter. Generalized weakness Continue PT. Anticipating disposition to skilled rehab. Atrial fibrillation Rate controlled. On warfarin. DVT prophylaxis: Warfarin
[2023-02-21] MEDS: WARFARIN SODIUM 4 MG TAB PO SCH (18:32)
[2023-02-21] MEDS: ACETAMINOPHEN 325 MG TABLET PO PRN (20:18)
[2023-02-21] MEDS: MELATONIN 5 MG TABLET PO SCH (20:19)
--- NOTE | 2023-02-21 22:57 | PN ---
Date of Progress Note: 02/21/2023 Subjective: Patient was admitted to the hospital with acute kidney injury. After diuresis, patient' s kidney function has been improved back to baseline. Physical Examination: Vital Signs: When I saw the patient, blood pressure 129/67, pulse of 91, afebrile. Chest: Clear to auscultation. Heart: S1, S2. Regular. Abdomen: Soft, nontender. Extremities: No edema. Neuro: Alert. No focality. Laboratory Data: Hemoglobin 13.3. Sodium 136, potassium 4.7, bicarb 30, BUN 27, creatinine 0.9, karina cium 9.3. Phosphorus 2.5. Current Medications: The patient on include: 1.Spironolactone. 2.Tylenol. 3.Lasix 40. 4.Ipratropium. 5.Melatonin. Assessment And Plan: 1.Acute kidney injury secondary to cardiorenal, recovered, resolved. Looked to me patient is close to normal volume. I am going to continue current diuresis. 2.Hypertension, controlled, optimal. Continue current treatment. 3.Congestive heart failure with diastolic dysfunction, preserved ejection fraction. Continue diures is. 4.Urinary tract infection. We started the patient on Flomax. 5.Hyponatremia secondary to dilutional. We will continue to optimize fluid status with diuresis. Time spent examining the patient [id number], reviewing data, lab and radiology, placing order, disc ussing the case with the boarder steam, discussing the case with hospitalist more than 35 minutes. JACKIE Voice ID: [id number] Report ID: [id number]
[2023-02-22] MEDS: IPRATROPIUM BROM 0.5MG/2.5ML NEB SCH ×4 (01:15→19:30)
[2023-02-22 06:49] LABS: Albumin 2.7 g/dL (3.4-5.0); Potassium 4.4 mEq/L (3.5-5.1)
[2023-02-22] MEDS: Meropenem 1,000 MG in NA CHLORIDE 0.9% 100 ML IV SCH ×2 (08:21→21:00)
[2023-02-22] MEDS: HYDROCODONE/APAP 5/325 MG TAB PO SCH (08:21)
[2023-02-22] MEDS: SPIRONOLACTONE 25 MG TABLET PO SCH (08:22)
[2023-02-22] MEDS: FUROSEMIDE 40 MG/4 ML VIAL IV SCH (08:22)
[2023-02-22] MEDS: TAMSULOSIN 0.4 MG SR CAP PO SCH (08:22)
[2023-02-22 16:28] LABS: Protime INR 2.23
[2023-02-22] MEDS: WARFARIN SODIUM 4 MG TAB PO SCH (16:49)
--- NOTE | 2023-02-22 17:19 | P.PN ---
Subjective Date of Service: 02/22/23 Chief Complaint: Shortness of breath Patient alert and oriented. He reports improvement in his functional status. He stated he is unable to sit at the edge of the bed with max assistance. Urine looks clear. Physical Examination - Vital Signs Temperature: 98.2 F Blood Pressure: 135/88 Pulse: 88 Respirations: 20 Pulse Ox (%): 93 - Studies Microbiology Data (last 24 hrs): 02/17/23 14:50 Blood - Blood Aerobic Blood Culture - Final No growth in 5 days. 02/17/23 14:50 Blood - Blood Anaerobic Blood Culture - Final No growth in 5 days. 02/17/23 14:24 Blood - Blood Aerobic Blood Culture - Final No growth in 5 days. 02/17/23 14:24 Blood - Blood Anaerobic Blood Culture - Final No growth in 5 days. Assessment And Plan - Plan Physical Exam General: Alert, Oriented x3 HEENT: Atraumatic, Normocephalic Neck: Supple Respiratory: Normal air movement Cardiovascular: Regular rate/rhythm, Normal S1 S2 Gastrointestinal: Soft and benign Musculoskeletal: No swelling Neurological: Normal speech Diagnosis Sepsis Deemed due to UTI and suspected pneumonia. Patient with indwelling Hidalgo catheter UA suggest UTI. Urine culture: Mixed growth Blood culture shows no growth to date. Leukocytosis resolved. Continue IV meropenem. UTI: Continue IV meropenem Pneumonia: Bibasilar patchy opacities Continue current antibiotic. Chronic urinary retention/chronic indwelling hidalgo catheter: Continue Hidalgo catheter. Continue Flomax Voiding trial within the next couple of days. Generalized weakness Continue PT. Anticipating disposition to skilled rehab. Atrial fibrillation Rate controlled. On warfarin. Continue to monitor PT and INR DVT prophylaxis: Warfarin
[2023-02-22] MEDS: MELATONIN 10 MG PO SCH (21:00)
[2023-02-22] MEDS: MELATONIN 5 MG TABLET PO SCH (21:04)
[2023-02-22] MEDS: ACETAMINOPHEN 325 MG TABLET PO PRN (21:04)
[2023-02-22 23:27] LABS: Blood Gas Oxyhemoglobin 95.6 % (94-97); Blood O2 Saturation 97.8 % (92-98.5)
[2023-02-23] MEDS: IPRATROPIUM BROM 0.5MG/2.5ML NEB SCH ×4 (00:55→19:25)
[2023-02-23 04:58] LABS: Protime INR 2.44
[2023-02-23 05:15] LABS: Albumin 2.7 g/dL (3.4-5.0); Phosphorus 2.8 mg/dL (2.5-4.9); Potassium 4.3 mEq/L (3.5-5.1)
[2023-02-23] MEDS ORDERED: Meropenem 1000 MG/VIAL IV ONE (07:30)
[2023-02-23] MEDS ORDERED: NA CHLORIDE 0.9% 100 ML ONE (07:32)
[2023-02-23] MEDS: FUROSEMIDE 40 MG/4 ML VIAL IV SCH (08:20)
[2023-02-23] MEDS: TAMSULOSIN 0.4 MG SR CAP PO SCH (08:20)
[2023-02-23] MEDS: SPIRONOLACTONE 25 MG TABLET PO SCH (08:20)
[2023-02-23] MEDS: DOCUSATE NA 100 MG CAP PO SCH (08:21)
[2023-02-23] MEDS: HYDROCODONE/APAP 5/325 MG TAB PO SCH (08:21)
[2023-02-23] MEDS: Meropenem 1,000 MG in NA CHLORIDE 0.9% 100 ML IV SCH (08:21)
[2023-02-23] MEDS ORDERED: BISACODYL 10 MG RECTAL SUPP PR ONE (11:03)
[2023-02-23] MEDS: ACETAMINOPHEN 325 MG TABLET PO PRN ×2 (13:37→21:36)
--- NOTE | 2023-02-23 14:00 | PN ---
Date of Progress Note: 02/23/2023 Subjective: Patient was admitted to the hospital with acute kidney injury secondary to cardiorenal. Patient after diuresis kidney function has been normalized. Physical Examination: Vital Signs: Blood pressure 140/77, pulse of 77. Chest: Clear to auscultation. Heart: S1, S2 regular. Abdomen: Soft, nontender. Extremities: No edema. Laboratory Data: Hemoglobin 13.3, sodium 136, potassium 4.3, bicarb 32, BUN 29, creatinine 0.8, calc ium 9. Current Medications: The patient on, includes: 1.Flomax. 2.Coumadin. 3.Spironolactone. 4.Lasix 40. 5.Bisacodyl. 6.Oxygen. 7.Melatonin. Assessment And Plan: 1.Acute kidney injury secondary to cardiorenal, continue to recover, normal volume currently. I am going to continue current diuresis dose. Continue spironolactone. 2.Hypertension, controlled, optimal. Continue current treatment. 3.Hypokalemia. Continue spironolactone for the time being. Patient cleared from the Renal standpoint for discharge planning. Follow up in 2 to 3 weeks. JACKIE Voice ID: [id number] Report ID: [id number]
--- NOTE | 2023-02-23 16:16 | P.PN ---
Subjective Date of Service: 02/23/23 Chief Complaint: Shortness of breath Patient reports constipation. No BM for 6 days He reports improvement in his functional status. He stated he is now able to sit at the edge of the bed with max assistance. Physical Examination - Vital Signs Temperature: 99.4 F Blood Pressure: 127/88 Pulse: 93 Respirations: 20 Pulse Ox (%): 93 - Studies Microbiology Data (last 24 hrs): 02/17/23 14:50 Blood - Blood Aerobic Blood Culture - Final No growth in 5 days. 02/17/23 14:50 Blood - Blood Anaerobic Blood Culture - Final No growth in 5 days. 02/17/23 14:24 Blood - Blood Aerobic Blood Culture - Final No growth in 5 days. 02/17/23 14:24 Blood - Blood Anaerobic Blood Culture - Final No growth in 5 days. Assessment And Plan - Plan Physical Exam General: Alert, Oriented x3 Neck: Supple Respiratory: Normal air movement Cardiovascular: Regular rate/rhythm, Normal S1 S2 Gastrointestinal: Soft and benign Musculoskeletal: No swelling Neurological: Normal speech Diagnosis Sepsis/UTI/Pneumonia Deemed due to UTI and suspected pneumonia. Patient with indwelling Hidalgo catheter UA suggest UTI. Urine culture: Mixed growth Blood culture shows no growth to date. Leukocytosis resolved. Continue IV meropenem. Chronic urinary retention/chronic indwelling hidalgo catheter: Continue Hidalgo catheter. Patient Hidalgo catheter has been in for a couple of weeks. Continue Flomax Voiding trial once functional status improved. Generalized weakness Continue PT. Anticipating disposition to skilled rehab. Atrial fibrillation Rate controlled. On warfarin. Continue to monitor PT and INR Impaired mobility Continue PT. Patient slated for skilled rehab placement. DVT prophylaxis: Warfarin
[2023-02-23] MEDS: WARFARIN SODIUM 4 MG TAB PO SCH (16:19)
[2023-02-23] MEDS: HOME MED 1 EA UNK (Vericiguat [Verquvo] 5 MG Tablet) PO SCH (16:19)
[2023-02-23] MEDS: MELATONIN 10 MG PO SCH (21:00)
--- NOTE | 2023-02-23 21:22 | RAD REPORT ---
EXAM DESCRIPTION: Chest Single View CLINICAL HISTORY: SOB TECHNIQUE: AP chest COMPARISON: None available for comparison FINDINGS: CHEST: Heart: The cardiomediastinal silhouette is within normal limits. Lungs: No focal consolidation. Mildly increased interstitial markings, likely chronic. Decreased inspiration. Mediastinum: Unremarkable Pleura: No appreciable effusion. No pneumothorax. Bones: Intact IMPRESSION: Decreased inspiration. No focal consolidation. Mildly increased interstitial markings, l ikely chronic. Electronically signed by: Percy Persaud MD 02/23/2023 12:24 AM CDT Due to temporary technical issues with the PACS/Fluency reporting system, reports are being signed by the in house radiologists without review as a courtesy to insure prompt reporting. The interpreting radiologist is fully responsible for the content of the report.
[2023-02-23] MEDS: MELATONIN 5 MG TABLET PO SCH (21:36)
[2023-02-24] MEDS: IPRATROPIUM BROM 0.5MG/2.5ML NEB SCH ×4 (01:40→19:20)
[2023-02-24 03:35] LABS: Albumin 2.7 g/dL (3.4-5.0); Phosphorus 2.4 mg/dL (2.5-4.9); Potassium 4.4 mEq/L (3.5-5.1)
[2023-02-24] MEDS: SPIRONOLACTONE 25 MG TABLET PO SCH (08:24)
[2023-02-24] MEDS: TAMSULOSIN 0.4 MG SR CAP PO SCH (08:25)
[2023-02-24] MEDS: DOCUSATE NA 100 MG CAP PO SCH (08:26)
[2023-02-24] MEDS: HYDROCODONE/APAP 5/325 MG TAB PO SCH (08:26)
[2023-02-24] MEDS: FUROSEMIDE 40 MG/4 ML VIAL IV SCH (08:26)
--- NOTE | 2023-02-24 13:58 | PN ---
Date of Progress Note: 02/24/2023 Subjective: The patient was admitted with acute kidney injury secondary to cardiorenal and CHF exacerbation. The patient had hyponatremia. The patient was diuresed very well. Kidney function normalized. Physical Examination: Vital Signs: Blood pressure 135/77, pulse of 92, afebrile. The patient still on nasal cannula. The patient had urine output of 1800, negative of 1 L. Chest: Decreased entry bilateral base with crackles. Heart: S1, S2. Systolic murmur. Abdomen: Soft, nontender. Extremities: Trace edema. Neurologic: Alert. No focality. Laboratory Data: Hemoglobin 13.3. Sodium 134, potassium 4.4, bicarb 34, BUN 28, creatinine 0.9, calcium 8.7, phosphorus 2.3, albumin 2.7. Corrected calcium is 10. Current Medications: The patient on include; 1. Flomax. 2. Coumadin. 3. Spironolactone 12.5. 4. Lasix 40 daily. 5. Bisacodyl. Assessment And Plan: 1. Acute kidney injury secondary to cardiorenal, recovered, resolved. The patient still looked on the over volume side. I am going to go ahead and switch the patient to oral and we will follow up the patient. 2. Hypertension. Continue to utilize blood pressure for more diuresis. 3. Hyponatremia secondary to dilutional. Will be corrected with diuresis. 4. Hypokalemia. Will be corrected with spironolactone. The patient cleared from the Renal standpoint for discharge planning to follow up in the office in 2-3 weeks. Time spent examining the patient [id number], reviewing data, lab and radiology, placing order, discussing the case with the patient, discussing the case with the assembler steam [employer] including the hospitalist and nursing staff more than 35 minutes. JACKIE Voice ID: [id number] Report ID: [id number] ROSSY
[2023-02-24] MEDS: BENZONATATE 100 MG CAP PO PRN ×2 (16:40→23:49)
[2023-02-24] MEDS: HOME MED 1 EA UNK (Vericiguat [Verquvo] 5 MG Tablet) PO SCH (16:40)
[2023-02-24] MEDS: WARFARIN SODIUM 4 MG TAB PO SCH (16:40)
--- NOTE | 2023-02-24 17:31 | P.PN ---
Subjective Date of Service: 02/24/23 Chief Complaint: Shortness of breath Patient reports bowel movement after suppository yesterday otherwise no major changes from yesterday. Physical Examination - Vital Signs Temperature: 97.8 F Blood Pressure: 154/77 Pulse: 89 Respirations: 20 Pulse Ox (%): 95 Assessment And Plan - Plan Physical Exam General: Alert, Oriented x3 Neck: Supple Respiratory: Normal air movement Cardiovascular: Regular rate/rhythm, Normal S1 S2 Gastrointestinal: Soft and benign Musculoskeletal: No swelling Neurological: Normal speech Diagnosis Sepsis/UTI/Pneumonia Deemed due to UTI and suspected pneumonia. Patient with indwelling Hidalgo catheter UA suggest UTI. Urine culture: Mixed growth Blood culture shows no growth to date. Leukocytosis resolved. Continue IV meropenem. Infectious disease consult. Chronic urinary retention/chronic indwelling hidalgo catheter: Continue Hidalgo catheter. Patient Hidalgo catheter has been in for a couple of weeks. Continue Flomax Voiding trial once functional status improved. Generalized weakness Continue PT. Anticipating disposition to skilled rehab. Atrial fibrillation Rate controlled. On warfarin. Continue to monitor PT and INR Impaired mobility Continue PT. Patient slated for skilled rehab placement. Functional constipation Patient had a bowel movement with a dose of Dulcolax suppository. Constipation prophylaxis with Colace and miralax. DVT prophylaxis: Warfarin
[2023-02-24] MEDS: MELATONIN 10 MG PO SCH (21:00)
[2023-02-24] MEDS: POLYETHYL GLY 3350 17 GM/DOSE PO SCH (22:43)
[2023-02-24] MEDS: MELATONIN 5 MG TABLET PO SCH (22:43)
[2023-02-25] MEDS: IPRATROPIUM BROM 0.5MG/2.5ML NEB SCH ×4 (01:25→20:00)
[2023-02-25] MEDS: GUAIFENESIN/DM 5 ML UCUP PO PRN ×3 (02:26→19:14)
[2023-02-25 06:37] LABS: Protime INR 2.71
[2023-02-25 06:42] LABS: Absolute Lymphocytes (CBC) 0.9 K/uL (0.7-4.9); Hematocrit 37.8 % (39.6-49.0); Lymphocytes % 8.4 % (15.3-44.8); MCV 95.9 fL (80-100); MPV 8.5 fL (7.6-11.3); Platelets 204 thou/uL (152-406); RBC Red Blood Cell Count 3.95 M/uL (4.33-5.43)
[2023-02-25 06:48] LABS: Albumin 2.7 g/dL (3.4-5.0); Phosphorus 2.2 mg/dL (2.5-4.9); Potassium 4.2 mEq/L (3.5-5.1)
[2023-02-25] MEDS: HYDROCODONE/APAP 5/325 MG TAB PO SCH (08:39)
[2023-02-25] MEDS: FUROSEMIDE 40 MG TABLET PO SCH (08:40)
[2023-02-25] MEDS: TAMSULOSIN 0.4 MG SR CAP PO SCH (08:40)
[2023-02-25] MEDS: SPIRONOLACTONE 25 MG TABLET PO SCH (08:41)
[2023-02-25] MEDS: POLYETHYL GLY 3350 17 GM/DOSE PO SCH ×2 (08:41→22:32)
[2023-02-25] MEDS: DOCUSATE NA 100 MG CAP PO SCH (08:41)
[2023-02-25] MEDS: HOME MED 1 EA UNK (Vericiguat [Verquvo] 5 MG Tablet) PO SCH (17:00)
[2023-02-25] MEDS: WARFARIN SODIUM 4 MG TAB PO SCH (19:13)
--- NOTE | 2023-02-25 19:14 | P.PN ---
Subjective Date of Service: 02/25/23 Chief Complaint: Shortness of breath Patient reports persistent nonproductive cough. Physical Examination - Vital Signs Temperature: 97.8 F Blood Pressure: 128/73 Pulse: 79 Respirations: 19 Pulse Ox (%): 97 Assessment And Plan - Plan Physical Exam General: Alert, Oriented x3 Neck: Supple Respiratory: Normal air movement Cardiovascular: Regular rate/rhythm, Normal S1 S2 Gastrointestinal: Soft and benign Musculoskeletal: No swelling Neurological: Normal speech Diagnosis Sepsis/UTI/Pneumonia Deemed due to UTI and suspected pneumonia. Patient with indwelling Hidalgo catheter UA suggest UTI. Urine culture: Mixed growth Blood culture shows no growth to date. Leukocytosis resolved. Continue IV meropenem. Infectious disease consulted. Symptomatic treatment Chronic urinary retention/chronic indwelling hidalgo catheter: Continue Hidalgo catheter. Patient Hidalgo catheter has been in for a couple of weeks. Continue Flomax Voiding trial once functional status improved. Generalized weakness Continue PT. Anticipating disposition to skilled rehab. Spouse is preferring [place] swing bed. Atrial fibrillation Rate controlled. On warfarin. Continue to monitor PT and INR Impaired mobility Continue PT. Patient slated for skilled rehab placement. Functional constipation Patient had a bowel movement with a dose of Dulcolax suppository. Constipation prophylaxis with Colace and miralax. DVT prophylaxis: Warfarin
[2023-02-25] MEDS: MELATONIN 10 MG PO SCH (21:00)
[2023-02-25] MEDS: MELATONIN 5 MG TABLET PO SCH (22:32)
--- NOTE | 2023-02-26 00:27 | PN ---
Date of Progress Note: 02/23/2023 Chief Complaint: Acute on chronic kidney injury. History Of Present Illness: The patient has fluid overload, cardiorenal syndrome. The patient r was treated with diuretics for congestive heart failure and cardiorenal syndrome, renal function has been stable on current dose of diuretic, congestive heart failure and cardiorenal syndrome has improved with diuretic treatment. Review of Systems: Denies chest pain or palpitation. Physical Examination: Lungs: Clear to auscultation bilaterally. Heart: S1, S2. Abdomen: Soft. Extremities: Lower extremities, edema present. Impression And Plan: 1. Acute kidney injury secondary to cardiorenal syndrome. The patient is on spironolactone. Continue current treatment. Monitor urine output , monitor renal panel, avoid NSAID. Continue low Sodium diet. 2. Hypertension is controlled. Monitor blood pressure, continue current treatment, 3. Hypokalemia. reevaluate renal panel , monitor magnesium and phosphorus level. The patient is on spironolactone. Continue current treatment.Avoid nephroltoxic medications. 4. Hyponatremia, secondary to cardiorenal syndrome and volume overload , continue diuretic s for volume control , avoid NSAID , avoid HCTZ, check TSH level and am cortisol level. FAWN/MODL Voice ID: [id number] Report ID: [id number] ROSSY
[2023-02-26] MEDS: IPRATROPIUM BROM 0.5MG/2.5ML NEB SCH ×4 (01:43→19:35)
--- NOTE | 2023-02-26 07:53 | P.PN ---
Date of Service: 02/26/23 Subjective: Doesnt feel as well as yesterday Feels like wheezing is worse today continues with constipation - no BM yet strength/endurance slowly improving - still feeling weak afebrile ROS: 10 point ROS as noted above, otherwise negative Physical Exam: GEN: Alert, oriented, NAD HEENT: Normal conjunctiva, sclera anicteric CV: Regular rate and rhythm, no edema Pulm: mildly-labored respirations on 3L NC, +wheeze ABD: Soft, nontender, nondistended Neuro: Normal speech, normal affect Chronic hidalgo in place vitals reviewed Problem List: Sepsis likely secondary to UTI/ suspected Pneumonia Chronic urinary retention/chronic indwelling hidalgo catheter Generalized weakness Impaired mobility Atrial fibrillation, chronic on anticoagulation Functional constipation Sepsis likely secondary to UTI/ suspected Pneumonia Deemed due to UTI and suspected pneumonia. Patient with indwelling Hidalgo catheter UA suggest UTI. Urine culture: Mixed growth Blood culture shows no growth to date. ID consulted received meropenem (02/17-02/23) afebrile, leukocytosis resolved Chronic urinary retention/chronic indwelling hidalgo catheter Continue Hidalgo catheter. Patient Hidalgo catheter has been in for a couple of weeks. Continue Flomax Generalized weakness Impaired mobility Continue PT. ss/cm consulted for SNF. Spouse is preferring [place] swing bed. Atrial fibrillation, chronic on anticoagulation Rate controlled. On warfarin. Continue to monitor PT and INR Functional constipation Patient had a bowel movement with a dose of Dulcolax suppository. continue Colace and miralax. VTE: home warfarin Code: DNR Dispo: rehab vs SNF - pending family choice ss/cm consulted
[2023-02-26] MEDS: TAMSULOSIN 0.4 MG SR CAP PO SCH (09:59)
[2023-02-26] MEDS: SPIRONOLACTONE 25 MG TABLET PO SCH (09:59)
[2023-02-26] MEDS: POLYETHYL GLY 3350 17 GM/DOSE PO SCH ×2 (09:59→20:19)
[2023-02-26] MEDS: FUROSEMIDE 40 MG TABLET PO SCH (10:00)
[2023-02-26] MEDS: DOCUSATE NA 100 MG CAP PO SCH (10:01)
[2023-02-26] MEDS: HYDROCODONE/APAP 5/325 MG TAB PO SCH (10:01)
--- NOTE | 2023-02-26 14:53 | PN ---
Subjective: The patient was admitted with acute kidney injury secondary to cardiorenal. The patient 's after diuresis kidney function normalized. Physical Examination: Vital Signs: Blood pressure 116/63. Chest: Crackles bilateral base. Heart: S1, S2. Systolic murmur. Abdomen: Soft, nontender. Extremity: No edema. Neurologic: Alert. No focality. Laboratory Data: Hemoglobin 12.8. Sodium 134, potassium 4.2, bicarb 34, BUN 26, creatinine 0.8, karina cium 8.9, phosphorus 2.2. Current Medications: The patient on include; 1.Spironolactone. 2.Coumadin. 3.Flomax. 4.Lasix. 5.Docusate. 6.Melatonin. Assessment And Plan: 1.Acute kidney injury secondary to cardiorenal, recovered, resolved. Continue current diuresis dose . Agree with spironolactone. 2.Hypertension, controlled, optimal. Keep utilizing blood pressure for more diuresis. 3.Hyponatremia secondary to dilutional. We will optimize fluid status. AXEL/MARIA DE JESUS Voice ID: [id number] Report ID: [id number]
--- NOTE | 2023-02-26 15:16 | P.CNS ---
Date of Consult: 02/26/23 Chief Complaint: Shortness of breath History of Present Illness: Patient is an 83 yo male with a past medical history of hypertension, CHF, atrial fibrillation, recurrent UTIs, prostate cancer, arthritis who presented to the ED with complaints of generalized weakness x 2 weeks and shortness of breath. Patient was admitted for sepsis secondary to urinary tract infection and suspected pneumonia. He was treated with meropenem IV from 02/17 to 02/23. Patient reporting overall not feeling and + wheezing on 02/25. Infectious disease was consulted. Allergies No Known Allergies Allergy (Unverified 03/25/13 14:10) Home medications list reviewed: Yes Home Medications: Docusate [Colace Cap*] 100 mg PO DAILY 03/25/13 Olmesartan/Hydrochlorothiazide [Benicar Hct 40-25 mg Tablet] 10 mg PO SEECOM 03/25/13 Acetaminophen [Tylenol Arthritis] 1,300 mg PO BEDTIME 02/17/23 Furosemide [Lasix*] 20 mg PO BID 02/17/23 Hydrocodone 5/APAP 325 [[place] 5/325*] 1 tab PO DAILY 02/17/23 Melatonin [Melatonin ER] 10 mg PO BEDTIME 02/17/23 Potassium Oral Tab [Klor-Con 10 mEq Tab*] 20 meq PO BID 02/17/23 Spironolactone [Aldactone*] 12.5 mg PO DAILY 02/17/23 Warfarin Sodium [Coumadin*] 4 mg PO DAILY 02/17/23 traMADol HCL [Ultram*] 50 mg PO Q8HP PRN 02/17/23 Vericiguat [Verquvo] 5 mg PO SEECOM 02/18/23 carvediloL [Coreg*] 3.125 mg PO SEECOM 02/18/23 - Past Medical/Surgical History Diabetic: No -: HTN -: 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, SPINE, ELBOW & SHOULDER) -: ARTHRITIS -: Congestive heart failure -: Atrial fibrillation -: HEART CATHETERIZATION -: PROSTATE SX -: L KNEE SURGERY - Social History Smoking Status: Current every day smoker Alcohol use: No CD- Drugs: No Caffeine use: Yes Review of Systems 10-point ROS is otherwise unremarkable General: Weakness, Malaise Respiratory: Wheezing Physical Examination Temp Pulse Resp BP Pulse Ox 98.2 F 70 18 116/63 96 02/26/23 12:00 02/26/23 12:02/26/23 12:02/26/23 12:02/26/23 12:00 General: Alert, In no apparent distress HEENT: Atraumatic, Normocephalic Neck: Supple Respiratory: Normal air movement, Diminished, Other (on 3L nasal cannula) Cardiovascular: No edema, Regular rate/rhythm Gastrointestinal: Normal bowel sounds, Non-distended, No tenderness Musculoskeletal: No clubbing, Other (generalized weakness) Integumentary: No rashes Neurological: Normal speech, Normal tone, Normal affect Urinary: Duarte catheter Laboratory Data - Reviewed Microbiology Data - Reviewed Imagings Data: - Reviewed Conclusions/Impression: Problem List Sepsis secondary to Urinary Tract Infection Suspected Pneumonia Chronic Urinary Retention Chronic Indwelling Duarte Catheter Atrial Fibrillation Impaired mobility, generalized weakness Sepsis secondary to Catheter-Associated Urinary Tract Infection (POA) and suspected Pneumonia - Urinary retention, chronic indwelling urinary catheter - Urine culture 02/18: mixed kelsea ; colony count <10,000 CFU/mL - Completed 7 days on Meropenem (02/17-02/23) - Leukocytosis resolved. Afebrile - Blood cultures 02/17: No growth to date Recommendations - Completed 7 days of IV Meropenem. Afebrile. Leukocytosis resolved. Off antibiotics since 02/24. Continue to monitor for worsening s/s of infection. - Continue nebulizer treatments - Supportive care and nutritional supplementation - continue with physical therapy Pending SNF placement. Case discussed with Rosendo Ribeiro
--- NOTE | 2023-02-26 15:47 | RAD REPORT ---
EXAM DESCRIPTION: RAD - Chest Single View - 02/26/2023 3:31 pm CLINICAL HISTORY: SOB, ?Aspiration Chest pain. COMPARISON: Chest Single View dated 02/22/2023; Chest Single View dated 02/19/2023; Chest Single View dated 02/18/2023; Chest Single View dated 02/17/2023 FINDINGS: Portable technique limits examination quality. Mild to moderate bilateral pulmonary opacities are seen. This may represent pulmonary edema or pneumo dori. The lungs are underinflated. The heart is mildly to moderately enlarged.
[2023-02-26] MEDS: ACETAMINOPHEN 325 MG TABLET PO PRN ×2 (16:46→23:43)
[2023-02-26] MEDS: HOME MED 1 EA UNK (Vericiguat [Verquvo] 5 MG Tablet) PO SCH (16:47)
[2023-02-26] MEDS: WARFARIN SODIUM 4 MG TAB PO SCH (18:17)
[2023-02-26] MEDS: MELATONIN 10 MG PO SCH (20:18)
[2023-02-26] MEDS: GUAIFENESIN/DM 5 ML UCUP PO PRN (20:19)
[2023-02-26] MEDS: MELATONIN 5 MG TABLET PO SCH (20:19)
[2023-02-26] MEDS ORDERED: DIPHENHYDRAMINE 25 MG TAB/CAP PO ONE (23:49)
[2023-02-27] MEDS: IPRATROPIUM BROM 0.5MG/2.5ML NEB SCH ×4 (01:40→19:50)
[2023-02-27 06:49] LABS: Thyroid Stimulating Hormone 3.18 uIU/mL (0.358-3.740)
[2023-02-27 06:52] LABS: Protime INR 2.45
--- NOTE | 2023-02-27 07:46 | P.PN ---
Date of Service: 02/27/23 Subjective: Feeling better today feels constipated; last BM ~2 days ago no acute events overnight afebrile ROS: 10 point ROS as noted above, otherwise negative Physical Exam: GEN: Alert, oriented, NAD HEENT: Normal conjunctiva, sclera anicteric CV: Regular rate and rhythm, trace BLE edema Pulm: mildly-labored respirations on 3L NC, +wheeze ABD: Soft, nontender, nondistended Neuro: Normal speech, normal affect Chronic hidalgo in place vitals reviewed Problem List: Sepsis likely secondary to UTI/ suspected Pneumonia Chronic urinary retention/chronic indwelling hidalgo catheter Generalized weakness Impaired mobility Atrial fibrillation, chronic on anticoagulation Functional constipation Sepsis likely secondary to UTI/ suspected Pneumonia Deemed due to UTI and suspected pneumonia. Patient with indwelling Hidalgo catheter UA suggest UTI. Urine culture: Mixed growth Blood culture shows no growth to date. ID consulted received meropenem (02/17-02/23) afebrile, leukocytosis resolved Chronic urinary retention/chronic indwelling hidalgo catheter Continue Hidalgo catheter. Patient Hidalgo catheter has been in for a couple of weeks. Continue Flomax Generalized weakness Impaired mobility Continue PT. ss/cm consulted for SNF. Spouse is preferring [place] swing bed. Atrial fibrillation, chronic on anticoagulation Rate controlled. On warfarin. Continue to monitor PT and INR Functional constipation Patient had a bowel movement with a dose of Dulcolax suppository. continue Colace and miralax. dulcolax suppository x1 (02/27) VTE: home warfarin Code: DNR Dispo: rehab vs SNF - pending family choice ss/cm consulted
[2023-02-27 08:12] LABS: Absolute Lymphocytes (CBC) 1.8 K/uL (0.7-4.9); Lymphocytes % 26.9 % (15.3-44.8); MCV 95.2 fL (80-100); Platelets 200 thou/uL (152-406)
[2023-02-27 08:28] LABS: Albumin 2.7 g/dL (3.4-5.0); Bilirubin Total 0.4 mg/dL (0.2-1.0); Potassium 4.1 mEq/L (3.5-5.1); Protein, Total 6.2 g/dL (6.4-8.2)
[2023-02-27 09:09] LABS: Blood Morphology Comment NOT SEEN (NOT SEEN); Platelet Estimate ADEQ
[2023-02-27] MEDS ORDERED: BISACODYL 10 MG RECTAL SUPP PR ONE (09:41)
[2023-02-27] MEDS: POLYETHYL GLY 3350 17 GM/DOSE PO SCH ×3 (10:36→22:35)
[2023-02-27] MEDS: HYDROCODONE/APAP 5/325 MG TAB PO SCH (10:36)
[2023-02-27] MEDS: FUROSEMIDE 40 MG TABLET PO SCH (10:37)
[2023-02-27] MEDS: TAMSULOSIN 0.4 MG SR CAP PO SCH (10:39)
[2023-02-27] MEDS: DOCUSATE NA 100 MG CAP PO SCH (10:39)
[2023-02-27] MEDS: SPIRONOLACTONE 25 MG TABLET PO SCH (10:45)
--- NOTE | 2023-02-27 13:18 | PN ---
Date of Progress Note: 02/27/2023 Subjective: The patient was admitted to the hospital with acute kidney injury, sepsis, and CHF exace rbation. The patient's after diuresis kidney function has been improved. Physical Examination: Vital Signs: Blood pressure 161/89, pulse of 85, afebrile. Chest: Clear to auscultation. Heart: S1, S2. Regular. Abdomen: Soft, nontender. Extremities: No edema. Neurologic: Alert. No focality. Laboratory Data: Hemoglobin 12.6. Sodium 137, potassium 4.1, bicarb 34, BUN 16, creatinine 0.7, karina cium 9.3. Current Medications: The patient on include diphenhydramine, Flomax, Coumadin, spironolactone 12.5, Tylenol, Lasix 60 daily, melatonin, bisacodyl. Assessment And Plan: 1.Acute kidney injury secondary to cardiorenal, recovered, resolved. 2.Hypertension, controlled, optimal. Continue current medication. 3.Hypokalemia, resolved. Continue spironolactone. 4.Sepsis secondary to urinary tract infection. Continue current antibiotic. Follow up with primary . JACKIE Voice ID: [id number] Report ID: [id number]
--- NOTE | 2023-02-27 14:36 | P.PN ---
Date of Service: 02/27/23 Chief Complaint: Shortness of breath Subjective: improving No acute events reported overnight. + constipation Physical Examination Temp Pulse Resp BP Pulse Ox 97.5 F 85 14 161/89 H 97 02/27/23 12:00 02/27/23 12:00 02/27/23 12:00 02/27/23 12:02/27/23 12:00 General: Alert, In no apparent distress HEENT: Atraumatic, Normocephalic Neck: Supple Respiratory: Normal air movement, expiratory wheezing. On 2.5L nasal cannula. Cardiovascular: Normal S1S2. Normal pulses. Bilateral lower extremity edema. Gastrointestinal: Normal bowel sounds, Non-distended, No tenderness Musculoskeletal: No clubbing. generalized weakness. Integumentary: No rashes Neurological: Normal speech, Normal tone, Normal affect Urinary: Duarte catheter Laboratory Data - Reviewed Microbiology Data - Reviewed Imagings Data: - Reviewed Medications List: Reviewed Assessment and Plan Problem List Sepsis secondary to Urinary Tract Infection Suspected Pneumonia Chronic Urinary Retention Chronic Indwelling Duarte Catheter Atrial Fibrillation Impaired mobility, generalized weakness Sepsis secondary to Catheter-Associated Urinary Tract Infection (POA) and suspected Pneumonia - Urinary retention, chronic indwelling urinary catheter - Urine culture 02/18: mixed kelsea ; colony count <10,000 CFU/mL - Completed 7 days on Meropenem (02/17-02/23) - Leukocytosis resolved. Afebrile - Blood cultures 02/17: No growth to date Recommendations - Completed 7 days of IV Meropenem. . Off antibiotics since 02/24. Afebrile. Leukocytosis resolved Had single febrile temp of 101.6 F on 02/23. Continue to monitor for worsening s/s of infection. - Continue nebulizer treatments - Supportive care and nutritional supplementation - continue with physical therapy Pending SNF placement. Case discussed with Rosendo Ribeiro
[2023-02-27] MEDS: WARFARIN SODIUM 4 MG TAB PO SCH (16:55)
[2023-02-27] MEDS: HOME MED 1 EA UNK (Vericiguat [Verquvo] 5 MG Tablet) PO SCH (17:00)
[2023-02-27] MEDS: ACETAMINOPHEN 325 MG TABLET PO PRN ×2 (17:30→22:40)
[2023-02-27] MEDS: MELATONIN 10 MG PO SCH (20:38)
[2023-02-27] MEDS: MELATONIN 5 MG TABLET PO SCH (22:34)
[2023-02-27] MEDS: GUAIFENESIN/DM 5 ML UCUP PO PRN (22:40)
[2023-02-28] MEDS: IPRATROPIUM BROM 0.5MG/2.5ML NEB SCH ×4 (01:55→19:50)
[2023-02-28] MEDS: ACETAMINOPHEN 325 MG TABLET PO PRN ×2 (05:03→12:30)
[2023-02-28 08:52] LABS: Albumin 2.7 g/dL (3.4-5.0); Phosphorus 2.9 mg/dL (2.5-4.9); Potassium 4.4 mEq/L (3.5-5.1)
[2023-02-28] MEDS: SPIRONOLACTONE 25 MG TABLET PO SCH (09:02)
[2023-02-28] MEDS: DOCUSATE NA 100 MG CAP PO SCH (09:02)
[2023-02-28] MEDS: POLYETHYL GLY 3350 17 GM/DOSE PO SCH ×2 (09:02→19:57)
[2023-02-28] MEDS: TAMSULOSIN 0.4 MG SR CAP PO SCH (09:04)
[2023-02-28] MEDS: HYDROCODONE/APAP 5/325 MG TAB PO SCH (09:04)
[2023-02-28] MEDS: FUROSEMIDE 40 MG TABLET PO SCH (09:05)
--- NOTE | 2023-02-28 13:59 | P.PN ---
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 Patient with indwelling Hidalgo catheter UA suggest UTI. Urine culture: Mixed growth Blood culture shows no growth to date. ID consulted received meropenem (02/17-02/23) afebrile, leukocytosis resolved Chronic urinary retention/chronic indwelling hidalgo catheter Continue Hidalgo catheter. Patient Hidalgo catheter has been in for a couple of weeks. Continue Flomax Generalized weakness Impaired mobility Chronic Shoulder pain Continue PT. [facility] maryjos switched to PRN tramadol ss/cm consulted for SNF. Spouse is preferring [facility]. Atrial fibrillation, chronic on anticoagulation Rate controlled. On warfarin. Continue to monitor PT and INR Functional constipation Patient had a bowel movement with a dose of Dulcolax suppository. continue Colace and miralax. s/p dulcolax suppository x1 with relief +BM (02/27) VTE: home warfarin Code: DNR Dispo: rehab vs SNF - pending family choice ss/cm consulted
[2023-02-28] MEDS ORDERED: TRAMADOL HCL 50 MG TAB PO PRN (14:17)
[2023-02-28] MEDS: WARFARIN SODIUM 4 MG TAB PO SCH (16:36)
[2023-02-28] MEDS: HOME MED 1 EA UNK (Vericiguat [Verquvo] 5 MG Tablet) PO SCH (17:00)
--- NOTE | 2023-02-28 17:37 | P.DS ---
Admission Date: 02/17/23 Discharge Date: 02/28/23 Disposition: TRANSFER TO INPATIENT REHAB Discharge Condition: FAIR Reason for Admission: Shortness of breath Consultations: Nephrology - Dr. Payne Infectious Disease - Dr. Prasad Brief History of Present Illness: Patient is 83 years of age very debilitated worsened over the past 2 weeks unable to ambulate history of recurrent UTIs he has been to the [facility] edition he has had some falls with fractures of his bone worse in the right leg he recently had a toe fracture and was in a boot apparently today got much worse developed more shortness of breath patient also had a urinary catheter inserted has been on multiple antibiotic history of congestive heart failure and A-fib under the care of Dr. Champagne in [place] denies any fever. Past 2 weeks he is unable to ambulate is very weak addition patient has spinal stenosis Hospital Course: Problem List: Sepsis likely secondary to UTI/ suspected Pneumonia Chronic urinary retention/chronic indwelling hidalgo catheter Generalized weakness Impaired mobility Atrial fibrillation, chronic on anticoagulation Functional constipation Chronic Shoulder pain Patient presented with generalized weakness, shortness of breath. Patient was found to have a Catheter-associated UTI and suspected pneumonia. ID was consulted. Patient completed 7 day course of merrem (02/17-02/23) and had improvement of his symptoms. Off antibiotics since 02/24. Patient remained stable off antibiotics for the rest of his hospitalization. His urine and blood cultures remained negative. Patient was feeling better, remained afebrile > 48 hours, leukocytosis resolved and was deemed stable for discharge to inpatient rehabe where he can continue working on strength/endurance prior to returning home. During his hospitalization, patient was noted to have a DELISA likely secondary to cardiorenal. Nephrology was consulted. Patients renal function improved / responded well with diuresis with lasix/spironolactone. Recommend repeat blood work in ~1 week to monitor renal function. Continue home medications as previously prescribed. Olmesartan/HCTZ 40-25 was held during hospitalization due to DELISA and blood pressure remaining in normal range; consider restarting as needed in near future, follow up with nephrology. Potassium remained stable/normal on las ix/spironolactone combination and he did not require restarting his home potassium pills. Follow up: PCP 3-5 days Nephrology in 1-2 weeks Physical Exam: GEN: Alert, oriented, NAD HEENT: Normal conjunctiva, sclera anicteric CV: Regular rate and rhythm, trace BLE edema Pulm: mildly-labored respirations on 2.5L NC, +wheeze ABD: Soft, nontender, nondistended Neuro: Normal speech, normal affect Vital Signs/Physical Exam: Temp Pulse Resp BP Pulse Ox 98.1 F 81 16 137/80 96 02/28/23 16:00 02/28/23 16:00 02/28/23 16:00 02/28/23 16:00 02/28/23 16:00 Laboratory Data at Discharge: WBC 6.60 thou/uL (4.3-10.9) 02/27/23 07:56 Hgb 12.6 g/dL (13.6-17.9) L 02/27/23 07:56 Hct 38.0 % (39.6-49.0) L 02/27/23 07:56 Plt Count 200 thou/uL (152-406) 02/27/23 07:56 PT 27.0 SECONDS (9.5-12.5) H 02/27/23 05:50 INR 2.45 02/27/23 05:50 APTT 33.2 SECONDS (24.3-36.9) 02/17/23 14:24 Sodium 135 mEq/L (136-145) L 02/28/23 08:19 Potassium 4.4 mEq/L (3.5-5.1) 02/28/23 08:19 BUN 18 mg/dL (7-18) 02/28/23 08:19 Creatinine 0.77 mg/dL (0.70-1.30) 02/28/23 08:19 Glucose 110 mg/dL (74-106) H 02/28/23 08:19 Phosphorus 2.9 mg/dL (2.5-4.9) 02/28/23 08:19 Magnesium 2.0 mg/dL (1.6-2.4) 02/27/23 05:50 Total Bilirubin 0.4 mg/dL (0.2-1.0) 02/27/23 07:56 AST 26 U/L (15-37) 02/27/23 07:56 ALT 49 U/L (16-61) 02/27/23 07:56 Alkaline Phosphatase 81 U/L (45-117) 02/27/23 07:56 Home Medications: Docusate [Colace Cap*] 100 mg PO DAILY 03/25/13 Acetaminophen [Tylenol Arthritis] 1,300 mg PO BEDTIME 02/17/23 Melatonin [Melatonin ER] 10 mg PO BEDTIME 02/17/23 Spironolactone [Aldactone*] 12.5 mg PO DAILY 02/17/23 Warfarin Sodium [Coumadin*] 4 mg PO DAILY 02/17/23 traMADol HCL [Ultram*] 50 mg PO Q4HP PRN 02/17/23 Vericiguat [Verquvo] 5 mg PO 1700 02/18/23 carvediloL [Coreg*] 3.125 mg PO 1300 02/18/23 Furosemide [Lasix*] 60 mg PO DAILY tab 02/28/23 Tamsulosin [Flomax*] 0.4 mg PO DAILY cap 02/28/23 Physician Discharge Instructions: Patient presented with generalized weakness, shortness of breath. Patient was found to have a Catheter-associated UTI and suspected pneumonia. ID was consulted. Patient completed 7 day course of merrem (02/17-02/23) and had improvement of his symptoms. Off antibiotics since 02/24. Patient remained stable off antibiotics for the rest of his hospitalization. His urine and blood cultures remained negative. Patient was feeling better, remained afebrile > 48 hours, leukocytosis resolved and was deemed stable for discharge to inpatient rehabe where he can continue working on strength/endurance prior to returning home. During his hospitalization, patient was noted to have a DELISA likely secondary to cardiorenal. Nephrology was consulted. Patients renal function improved / responded well with diuresis with lasix/spironolactone. Recommend repeat blood work in ~1 week to monitor renal function. Continue home medications as previously prescribed. Olmesartan/HCTZ 40-25 was held during hospitalization due to DELISA and blood pressure remaining in normal range; consider restarting as needed in near future, follow up with nephrology. Potassium remained stable/normal on lasix/spironolactone combination and he did not require restarting his home potassium pills. Follow up: PCP 3-5 days Nephrology in 1-2 weeks Followup: Rickey Mccabe MD [Primary Care Provider] -
[2023-02-28] MEDS: MELATONIN 5 MG TABLET PO SCH (19:58)
[2023-02-28] MEDS: MELATONIN 10 MG PO SCH (19:58)
[2023-02-28 21:08] VITALS: O2SAT 95
[2023-02-28 21:16] VITALS: BP 154/87; TEMP 97.5
--- NOTE | 2023-03-01 00:21 | PN ---
Date of Progress Note: 02/28/2023 Chief Complaint: Acute kidney injury, cardiorenal syndrome. Subjective: The patient is feeling better today. He is on O2 nasal cannula. He has been weaned off oxygen to 2.5 L nasal cannula. He is advancing with physical therapy. Review of Systems: Denies chest pain, palpitation. Physical Examination: Lungs: Few crackles at bases. Heart: S1, S2. Abdomen: Soft. Extremities: No edema. Impression And Plan: 1.Acute on chronic kidney injury, cardiorenal syndrome. Renal function has improved. Patient has m ultiple medical problems including history of sepsis with likely secondary to urinary tract infection s and suspect pneumonia. The patient has chronic indwelling Duarte catheter. He will follow up with urologist. The patient is advancing with physical therapy. 2.Atrial fibrillation. Per Cardiology and primary team. 3.Chronic indwelling Duarte catheter. Continue Flomax. 4.Renal function overall has improved during this admission. Electrolytes are stable. The patient has borderline hyponatremia. Monitor electrolytes and renal panel closely. On admission, creatinine level was 1.66 and increased to 2.11. Currently creatinine level is at baseline. Avoid nephrotoxic medication. EB/MODL Voice ID: [id number] Report ID: [id number]
== END 2023-02-28 21:45 | DRG 698 ==
LOC: ER 13:33 → ERHOLD 17:12 → 4TH 19:29
PROVIDERS: ADMIT Internal Medicine Sleep Medicine; ATTEND Hospitalist
PROC: 5A09557 Assistance with Respiratory Ventilation, Greater than 96 Consecutive Hours, Continuous Positive Airway Pressure (ICD-10-PCS; principal; 2023-02-22)
DX: T83.511A Infection and inflammatory reaction due to indwelling urethral catheter, initial encounter (principal); A41.9 Sepsis, unspecified organism; J18.9 Pneumonia, unspecified organism; R65.21 Severe sepsis with septic shock; N17.0 Acute kidney failure with tubular necrosis; E87.20 Acidosis, unspecified; E87.1 Hypo-osmolality and hyponatremia; I50.32 Chronic diastolic (congestive) heart failure; I48.20 Chronic atrial fibrillation, unspecified; N39.0 Urinary tract infection, site not specified; I11.0 Hypertensive heart disease with heart failure; E87.6 Hypokalemia; M19.90 Unspecified osteoarthritis, unspecified site; K59.04 Chronic idiopathic constipation; M48.00 Spinal stenosis, site unspecified; G89.29 Other chronic pain; M25.519 Pain in unspecified shoulder; T50.995A Adverse effect of other drugs, medicaments and biological substances, initial encounter; F17.200 Nicotine dependence, unspecified, uncomplicated; R09.02 Hypoxemia; R33.9 Retention of urine, unspecified; R29.6 Repeated falls; Z66 Do not resuscitate; Z88.2 Allergy status to sulfonamides; Z90.79 Acquired absence of other genital organ(s); Z79.01 Long term (current) use of anticoagulants; Z79.82 Long term (current) use of aspirin; Z85.46 Personal history of malignant neoplasm of prostate; Z91.81 History of falling; Z79.899 Other long term (current) drug therapy; Y84.6 Urinary catheterization as the cause of abnormal reaction of the patient, or of later complication, without mention of misadventure at the time of the procedure
CPT/HCPCS: 36415; 36600; 71045; 76770; 80048; 80053; 80069; 80076; 81001; 82533; 82805; 82947; 83605; 83735; 83880; 84443; 84484; 85025; 85610; 85730; 87040; 87086; 87088; 93005; 93306; 94640; 94660; 96365; 96366; 96375; 97110; 97161; 97530; 99285; J0696; J1940; J2185; J7030; J7040; J7050; J7613; J7644

== ENCOUNTER 2023-02-28 21:40 | Inpatient (IN) | payer OTHER ==
--- OUTSIDE RECORDS SUMMARY | 2023-02-28 22:11 | XMS REPORT | Continuity of Care Document ---
:1940 Author Organization [facility] t Address [address] [place] [address] [address] [place] [address] Care Team Providers Name Role Phone CASA BRANNONVALERY Tsai Primary Care Physician Unavailable Kim Flores Attending Clinician Unavailable TODD HUERTA Attending Clinician Unavailable DEVANG OLIVAS Attending Clinician Unavailable Shirlye Arambula Attending Clinician Devang Olivas MD Attending Clinician SHIRLEY GAINES Attending Clinician Unavailable Doctor Unassigned, [place] Attending Clinician Unavailable SARAH SAL Attending Clinician [...] Date Sour ce Number MEDICARE PART A [id number] 2006 \T\ B 00:00:00 AGENCY GENERIC [id number] 2006 00:00:00 COMMERCIAL [id number] 2006 NON-CONTRACT 00:00:00 GENERIC SECURE HORIZONS 53 [id number] Common Sp leonela - [facility] [id number] 2020 GENERIC 00:00:00 Problems Condition Condition Condition [...] rs active active ity of problems problems [facility] [id number] 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 [facility] [id number] Primary Problem Comm on osteoarthr Spirit [facility] left [facility] [id number] History of Problem Co mmon prostate [facility] cancer [facility] Prostate Prostate Problem Commo n cancer cancer [facility] Allergies, Adverse Reactions, Alerts Allergy Allergy Status [...] Spirit / / - CHI trimetho trimetho [facility] Substanc Substanc Active Unknown Commo n e with e with Spirit sulfonam sulfonam - CHI linda linda [facility] e and e and Medical antibact antibact Center erial erial mechanis mechanis m of m of action action (substan (substan ce) ce) Social History Social Habit Start Date Stop Date Quantity Comments Source Gender identity Universit y [facility] Sexual orientation Univer sity [facility] History of Tobacco [facility] - Use [facility] Sex Assigned At Common Sp leonela - [facility] Exposure to 2022-03-25 2022-04-04 Not sure University SARS-CoV-2 (event) 00:00:00 10:58:00 [facility] History of Social 2022-02-15 2022-02-15 Univers ity of function 00:00:00 00:00:00 [facility] Tobacco use and 2022-02-15 2022-02-15 Smokeless Universit y of exposure 00:00:00 00:00:00 tobacco non-user [facility] Smoking Status Start Date Stop Date Source Never Smoker [facility] - [facility] Ex-smoker 2022-02-15 00:00:00 2022-02-15 00:00:00 Universi ty [facility] Medications Ordered Filled Start Stop Current Ordering Indication Dosage Frequency Signature Comments Components Source Medication Medication Date Date Medication? Clinician (SIG) Name Name traMADol traMADol No 1{table traMADol HCl 50 MG HCl 50 MG 1-30 t_as_ne HCl 50 MG 00:00: eded} 00 Bupivicaine Bupivicaine No 2.5mg Common Catlett Catlett 1-30 Spirit 00:00: - [facility] Bupivicaine Bupivicaine No 2.5mg Common Catlett Catlett 1-30 Spirit 00:00: - CHI 00 [facility] Kenalog Kenalog No 40mg Common (Triamcinol (Triamcinol 1-30 S pirit one) one) 00:00: - CHI 00 [facility] Kenalog Kenalog No 40mg Common (Triamcinol (Triamcinol 1-30 S pirit one) one) 00:00: - CHI 00 [facility] cephALEXin 2021-06- No [id number] 500mg Take 1 Univers (KEFLEX) 1- 11-15 capsule by ity of 500 mg 00:00: 05:59 mouth in [place] capsule 00 :00 the Medical morning Branch and 1 capsule in the evening. Do all this for 7 days. gentamicin 2021- No [id number] 80mg U nivers injection 02-15 ity of 80 mg 22:15: 21:15 [place] 00 :00 Medical Branch gentamicin 2021- No [id number] 80mg 80 mg, Univers injection 02-15 Intramuscu ity of 80 mg 22:15: 21:15 lar, ONCE, [place] 00 :00 1 dose, On Medical Raisa Branch 02/15/22 at 1715, JOELLE
Re ason for Anti-Infec tive: Empiric Therapy for Suspected Infection< br>Empiric Therapy Site: Urine
D uration of therapy: 72 hours carvediloL 2020-06 Yes 12.5mg Take 12.5 Univers (COREG) 0-25 mg by ity of 12.5 mg 16:25: mouth 2 [place] tablet 35 (two) Medical times [place] daily with meals. predniSONE 2020-06 Yes 10mg Take 10 mg U nivers 10 mg 0-25 by mouth ity of tablet 16:25: daily. [address] spironolact 2020-06 Yes 25mg Take 25 mg Univers one 25 mg 0-25 by mouth ity of tablet 16:25: daily. [address] BENZONATATE 2020-06 Yes Take by Uni vers ORAL 0-25 mouth. ity of 16:25: [address] tamsulosin 2020-06 Yes Take by Univ ers (FLOMAX) 0-25 mouth ity of 0.4 mg 24 16:25: daily. [place] [facility] capsule [address] [place] [address] finasteride 2020-06 Yes 5mg Take 5 mg U nivers 5 mg tablet 0-25 by mouth ity of 16:25: daily. [address] furosemide 2020-06 Yes 80mg Take 80 mg U nivers (LASIX) 80 0-25 by mouth ity o f mg tablet 16:25: every [place] [address] morning Medical and Branch evening. carvediloL 2020-06 Yes 12.5mg Take 12.5 Univers (COREG) 0-25 mg by ity of 12.5 mg 16:25: mouth 2 [place] tablet 35 (two) Medical times Branch daily with meals. predniSONE 2020-06 Yes 10mg Take 10 mg U nivers 10 mg 0-25 by mouth ity of tablet 16:25: daily. [address] spironolact 2020-06 Yes 25mg Take 25 mg Univers one 25 mg 0-25 by mouth ity of tablet 16:25: daily. [address] BENZONATATE 2020-06 Yes Take by Uni vers ORAL 0-25 mouth. ity of 16:25: [address] tamsulosin 2020-06 Yes Take by [facility] ers (FLOMAX) 0-25 mouth ity of 0.4 mg 24 16:25: daily. [place] [facility] capsule [address] [place] [address] finasteride 2020-06 Yes 5mg Take 5 mg U nivers 5 mg tablet 0-25 by mouth ity of 16:25: daily. [address] furosemide 2020-06 Yes 80mg Take 80 mg U nivers (LASIX) 80 0-25 by mouth ity o f mg tablet 16:25: every [place] [address] morning Medical and Branch evening. carvediloL 2020-06 Yes 12.5mg Take 12.5 Univers (COREG) 0-25 mg by ity of 12.5 mg 16:25: mouth 2 [place] tablet 35 (two) Medical times Branch daily with meals. predniSONE 2020-06 Yes 10mg Take 10 mg U nivers 10 mg 0-25 by mouth ity of tablet 16:25: daily. [address] spironolact 2020-06 Yes 25mg Take 25 mg Univers one 25 mg 0-25 by mouth ity of tablet 16:25: daily. [address] BENZONATATE 2020-06 Yes Take by Uni vers ORAL 0-25 mouth. ity of 16:25: [address] tamsulosin 2020-06 Yes Take by [facility] ers (FLOMAX) 0-25 mouth ity of 0.4 mg 24 16:25: daily. [place] [facility] capsule [address] [place] [address] finasteride 2020-06 Yes 5mg Take 5 mg U nivers 5 mg tablet 0-25 by mouth ity of 16:25: daily. [address] furosemide 2020-06 Yes 80mg Take 80 mg U nivers (LASIX) 80 0-25 by mouth ity o f mg tablet 16:25: every [place] [address] morning Medical and Branch evening. carvediloL 2020-06 Yes 12.5mg Take 12.5 Univers (COREG) 0-25 mg by ity of 12.5 mg 16:25: mouth 2 [place] tablet 35 (two) Medical times [place] daily with meals. predniSONE 2020-06 Yes 10mg Take 10 mg U nivers 10 mg 0-25 by mouth ity of tablet 16:25: daily. [address] spironolact 2020-06 Yes 25mg Take 25 mg Univers one 25 mg 0-25 by mouth ity of tablet 16:25: daily. [address] BENZONATATE 2020-06 Yes Take by Uni vers ORAL 0-25 mouth. ity of 16:25: [address] tamsulosin 2020-06 Yes Take by [facility] ers (FLOMAX) 0-25 mouth ity of 0.4 mg 24 16:25: daily. [place] [facility] capsule [address] [place] [address] finasteride 2020-06 Yes 5mg Take 5 mg U nivers 5 mg tablet 0-25 by mouth ity of 16:25: daily. [address] furosemide 2020-06 Yes 80mg Take 80 mg U nivers (LASIX) 80 0-25 by mouth ity o f mg tablet 16:25: every [place] [address] morning Medical and Branch evening. carvediloL 2020-06 Yes 12.5mg Take 12.5 Univers (COREG) 0-25 mg by ity of 12.5 mg 16:25: mouth 2 [place] tablet 35 (two) Medical times [place] daily with meals. predniSONE 2020-06 Yes 10mg Take 10 mg U nivers 10 mg 0-25 by mouth ity of tablet 16:25: daily. [address] spironolact 2020-06 Yes 25mg Take 25 mg Univers one 25 mg 0-25 by mouth ity of tablet 16:25: daily. [address] BENZONATATE 2020-06 Yes Take by Uni vers ORAL 0-25 mouth. ity of 16:25: [address] tamsulosin 2020-06 Yes Take by [facility] ers (FLOMAX) 0-25 mouth ity of 0.4 mg 24 16:25: daily. [place] [facility] capsule [address] [place] [address] finasteride 2020-06 Yes 5mg Take 5 mg U nivers 5 mg tablet 0-25 by mouth ity of 16:25: daily. [address] furosemide 2020-06 Yes 80mg Take 80 mg U nivers (LASIX) 80 0-25 by mouth ity o f mg tablet 16:25: every [place] [address] morning Medical and Branch evening. carvediloL 2020-06 Yes 12.5mg Take 12.5 Univers (COREG) 0-25 mg by ity of 12.5 mg 16:25: mouth 2 [place] [address] (two) Medical times [place] daily with meals. predniSONE 2020-06 Yes 10mg Take 10 mg U nivers 10 mg 0-25 by mouth ity of tablet 16:25: daily. [address] spironolact 2020-06 Yes 25mg Take 25 mg Univers one 25 mg 0-25 by mouth ity of tablet 16:25: daily. [address] BENZONATATE 2020-06 Yes Take by Uni vers ORAL 0-25 mouth. ity of 16:25: [address] tamsulosin 2020-06 Yes Take by [facility] ers (FLOMAX) 0-25 mouth ity of 0.4 mg 24 16:25: daily. [place] [facility] capsule [address] [place] [address] finasteride 2020-06 Yes 5mg Take 5 mg U nivers 5 mg tablet 0-25 by mouth ity of 16:25: daily. [address] furosemide 2020-06 Yes 80mg Take 80 mg U nivers (LASIX) 80 0-25 by mouth ity o f mg tablet 16:25: every [place] [address] morning Medical and Branch evening. carvediloL 2020-06 Yes 12.5mg Take 12.5 Univers (COREG) 0-25 mg by ity of 12.5 mg 16:25: mouth 2 [place] tablet 35 (two) Medical times Branch daily with meals. predniSONE 2020-06 Yes 10mg Take 10 mg U nivers 10 mg 0-25 by mouth ity of tablet 16:25: daily. [address] spironolact 2020-06 Yes 25mg Take 25 mg Univers one 25 mg 0-25 by mouth ity of tablet 16:25: daily. [address] BENZONATATE 2020-06 Yes Take by Uni vers ORAL 0-25 mouth. ity of 16:25: [address] tamsulosin 2020-06 Yes Take by [facility] ers (FLOMAX) 0-25 mouth ity of 0.4 mg 24 16:25: daily. [place] [facility] capsule [address] [place] [address] finasteride 2020-06 Yes 5mg Take 5 mg U nivers 5 mg tablet 0-25 by mouth ity of 16:25: daily. [address] furosemide 2020-06 Yes 80mg Take 80 mg U nivers (LASIX) 80 0-25 by mouth ity o f mg tablet 16:25: every [place] [address] morning Medical and Branch evening. carvediloL 2020-06 Yes 12.5mg Take 12.5 Univers (COREG) 0-25 mg by ity of 12.5 mg 16:25: mouth 2 [place] tablet 35 (two) Medical times [place] daily with meals. predniSONE 2020-06 Yes 10mg Take 10 mg U nivers 10 mg 0-25 by mouth ity of tablet 16:25: daily. [address] spironolact 2020-06 Yes 25mg Take 25 mg Univers one 25 mg 0-25 by mouth ity of tablet 16:25: daily. [address] BENZONATATE 2020-06 Yes Take by Uni vers ORAL 0-25 mouth. ity of 16:25: [address] tamsulosin 2020-06 Yes Take by Univ ers (FLOMAX) 0-25 mouth ity of 0.4 mg 24 16:25: daily. [place] [facility] capsule [address] [place] [address] finasteride 2020-06 Yes 5mg Take 5 mg U nivers 5 mg tablet 0-25 by mouth ity of 16:25: daily. [address] furosemide 2020-06 Yes 80mg Take 80 mg U nivers (LASIX) 80 0-25 by mouth ity o f mg tablet 16:25: every [place] [address] morning Medical and Branch evening. carvediloL 2020-06 Yes 12.5mg Take 12.5 Univers (COREG) 0-25 mg by ity of 12.5 mg 16:25: mouth 2 [place] tablet 35 (two) Medical times Branch daily with meals. predniSONE 2020-06 Yes 10mg Take 10 mg U nivers 10 mg 0-25 by mouth ity of tablet 16:25: daily. [address] spironolact 2020-06 Yes 25mg Take 25 mg Univers one 25 mg 0-25 by mouth ity of tablet 16:25: daily. [address] BENZONATATE 2020-06 Yes Take by Uni vers ORAL 0-25 mouth. ity of 16:25: [address] tamsulosin 2020-06 Yes Take by [facility] ers (FLOMAX) 0-25 mouth ity of 0.4 mg 24 16:25: daily. [place] [facility] capsule [address] [place] [address] finasteride 2020-06 Yes 5mg Take 5 mg U nivers 5 mg tablet 0-25 by mouth ity of 16:25: daily. [address] furosemide 2020-06 Yes 80mg Take 80 mg U nivers (LASIX) 80 0-25 by mouth ity o f mg tablet 16:25: every [place] [address] morning Medical and Branch evening. carvediloL 2020-06 Yes 12.5mg Take 12.5 Univers (COREG) 0-25 mg by ity of 12.5 mg 16:25: mouth 2 [place] tablet 35 (two) Medical times [place] daily with meals. predniSONE 2020-06 Yes 10mg Take 10 mg U nivers 10 mg 0-25 by mouth ity of tablet 16:25: daily. [address] spironolact 2020-06 Yes 25mg Take 25 mg Univers one 25 mg 0-25 by mouth ity of tablet 16:25: daily. [address] BENZONATATE 2020-06 Yes Take by Uni vers ORAL 0-25 mouth. ity of 16:25: [address] tamsulosin 2020-06 Yes Take by Univ ers (FLOMAX) 0-25 mouth ity of 0.4 mg 24 16:25: daily. [place] [facility] capsule [address] [place] [address] finasteride 2020-06 Yes 5mg Take 5 mg U nivers 5 mg tablet 0-25 by mouth ity of 16:25: daily. [place] [address] Medical Branch furosemide 2020-06 Yes 80mg Take 80 mg U nivers (LASIX) 80 0-25 by mouth ity o f mg tablet 16:25: every [place] [address] morning Medical and Branch evening. potassium 2020-06 Yes 20meq Take 20 Univ ers chloride 0-25 mEq by ity of (KCL-20 16:20: mouth 2 [place] ORAL) 34 (two) Medical times Branch daily. warfarin 4 2020-06 Yes 4.5mg Take 4.5 Un trupti mg tablet 0-25 mg by ity of 16:20: mouth. [place] [address] Medical Branch potassium 2020-06 Yes 20meq Take 20 Univ ers chloride 0-25 mEq by ity of (KCL-20 16:20: mouth 2 [place] ORAL) 34 (two) Medical times Branch daily. warfarin 4 2020-06 Yes 4.5mg Take 4.5 Un trupti mg tablet 0-25 mg by ity of 16:20: mouth. [address] Branch potassium 2020-06 Yes 20meq Take 20 Univ ers chloride 0-25 mEq by ity of (KCL-20 16:20: mouth 2 [place] ORAL) 34 (two) Medical times Branch daily. warfarin 4 2020-06 Yes 4.5mg Take 4.5 Un trupti mg tablet 0-25 mg by ity of 16:20: mouth. [address] Branch potassium 2020-06 Yes 20meq Take 20 Univ ers chloride 0-25 mEq by ity of (KCL-20 16:20: mouth 2 [place] ORAL) 34 (two) Medical times Branch daily. warfarin 4 2020-06 Yes 4.5mg Take 4.5 Un trupti mg tablet 0-25 mg by ity of 16:20: mouth. [place] [address] Medical Branch potassium 2020-06 Yes 20meq Take 20 Univ ers chloride 0-25 mEq by ity of (KCL-20 16:20: mouth 2 [place] ORAL) 34 (two) Medical times Branch daily. warfarin 4 2020-06 Yes 4.5mg Take 4.5 Un trupti mg tablet 0-25 mg by ity of 16:20: mouth. [address] potassium 2020-06 Yes 20meq Take 20 Univ ers chloride 0-25 mEq by ity of (KCL-20 16:20: mouth 2 [place] ORAL) 34 (two) Medical times Branch daily. warfarin 4 2020-06 Yes 4.5mg Take 4.5 Un trupti mg tablet 0-25 mg by ity of 16:20: mouth. [address] potassium 2020-06 Yes 20meq Take 20 Univ ers chloride 0-25 mEq by ity of (KCL-20 16:20: mouth 2 [place] ORAL) 34 (two) Medical times Branch daily. warfarin 2020-06 Yes 4.5mg Take 4.5 Un trupti mg tablet 0-25 mg by ity of 16:20: mouth. [address] potassium 2020-06 Yes 20meq Take 20 Univ ers chloride 0-25 mEq by ity of (KCL-20 16:20: mouth 2 [place] ORAL) 34 (two) Medical times Branch daily. warfarin 2020-06 Yes 4.5mg Take 4.5 Un trupti mg tablet 0-25 mg by ity of 16:20: mouth. [address] potassium 2020-06 Yes 20meq Take 20 Univ ers chloride 0-25 mEq by ity of (KCL-20 16:20: mouth 2 [place] ORAL) 34 (two) Medical times Branch daily. warfarin 2020-06 Yes 4.5mg Take 4.5 Un trupti mg tablet 0-25 mg by ity of 16:20: mouth. [address] potassium 2020-06 Yes 20meq Take 20 Univ ers chloride 0-25 mEq by ity of (KCL-20 16:20: mouth 2 [place] ORAL) 34 (two) Medical times Branch daily. warfarin 2020-06 Yes 4.5mg Take 4.5 Un trupti mg tablet 0-25 mg by ity of 16:20: mouth. [address] cyclobenzap Yes [id number] 10mg Take 1 Univers rine 10 mg 9-21 [id number] tablet by it y of tablet 00:00: mouth 3 00 (three) Medical times Branch daily. cyclobenzap Yes [id number] 10mg Take 1 Univers rine 10 mg 9-21 [id number] tablet by it y of tablet 00:00: mouth 3 00 (three) Medical times Branch daily. cyclobenzap Yes [id number] 10mg Take 1 Univers rine 10 mg 9-21 [id number] tablet by it y of tablet 00:00: mouth 3 00 (three) Medical times Branch daily. cyclobenzap 2020-0 Yes [id number] 10mg Take 1 Univers rine 10 mg 9-21 [id number] tablet by it y of tablet 00:00: mouth 3 00 (three) Medical times Branch daily. cyclobenzap 2020-0 Yes [id number] 10mg Take 1 Univers rine 10 mg 9-21 [id number] tablet by it y of tablet 00:00: mouth 3 (three) Medical times Branch daily. cyclobenzap 2020-0 Yes [id number] 10mg Take 1 Univers rine 10 mg 9-21 [id number] tablet by it y of tablet 00:00: mouth 3 (three) Medical times Branch daily. cyclobenzap 2020-0 Yes [id number] 10mg Take 1 Univers rine 10 mg 9-21 [id number] tablet by it y of tablet 00:00: mouth 3 (three) Medical times Branch daily. cyclobenzap 2020-0 Yes [id number] 10mg Take 1 Univers rine 10 mg 9-21 [id number] tablet by it y of tablet 00:00: mouth 3 (three) Medical times Branch daily. cyclobenzap 2020-0 Yes [id number] 10mg Take 1 Univers rine 10 mg 9-21 [id number] tablet by it y of tablet 00:00: mouth 3 (three) Medical times Branch daily. cyclobenzap 2020-0 Yes [id number] 10mg Take 1 Univers rine 10 mg 9-21 [id number] tablet by it y of tablet 00:00: [...] 320 mg 9-16 ity of tablet 00:00: [place] [facility] valsartan 2020-0 Yes Univers 320 mg 9-16 ity of tablet 00:00: [place] [facility] valsartan 2020-0 Yes Univers 320 mg 9-16 ity of tablet 00:00: [place] [facility] valsartan 2020-0 Yes Univers 320 mg 9-16 ity of tablet 00:00: [place] [facility] ofloxacin 0 Yes INSTILL 1 [...] 1-20 by mouth. ity of tablet 11:08: [address] olmesartan 2020-0 Yes 20mg Take 20 mg U nivers 20 mg 1-20 by mouth. ity of tablet 11:08: [address] olmesartan 2020-0 Yes 20mg Take 20 mg U nivers 20 mg 1-20 by mouth. ity of tablet 11:08: [address] olmesartan 2020-0 Yes 20mg Take 20 mg U nivers 20 mg 1-20 by mouth. ity of tablet 11:08: [address] olmesartan 2020-0 Yes 20mg Take 20 mg U nivers 20 mg 1-20 by mouth. ity of tablet 11:08: [address] olmesartan 2020-0 Yes 20mg Take 20 mg U nivers 20 mg 1-20 by mouth. ity of tablet 11:08: [address] olmesartan 2020-0 Yes 20mg Take 20 mg U nivers 20 mg 1-20 by mouth. ity of tablet 11:08: [address] olmesartan 2020-0 Yes 20mg Take 20 mg U nivers 20 mg 1-20 by mouth. ity of tablet 11:08: [address] olmesartan 2020-0 Yes 20mg Take 20 mg U nivers 20 mg 1-20 by mouth. ity of tablet 11:08: [address] olmesartan 2020-0 Yes 20mg Take 20 mg U nivers 20 mg 1-20 by mouth. ity of tablet 11:08: [address] Levaquin Levaquin 2020-0 2020- No Antonella 1 tablet Common 2-21 07-31 [place] [facility] 00:00: 00:00 - [facility] 00 :00 [facility] Furosemide Furosemide Yes Anton[facility] PredniSONE PredniSONE Yes [facility] Losartan Losartan Yes Antonella 1 tablet Co mmon Potassium Potassium [place] [facility] Carvedilol Carvedilol Yes Antonella as Co mmon [place] directed [facility] ProAir HFA ProAir HFA Yes Antonella 1 puff as Common [place] needed [facility] Warfarin Warfarin Yes Antonella 1 tablet Co mmon Sodium Sodium [place] [facility] Hydrocodone Hydrocodone Yes Antonella 1 tablet Common -Acetaminop -Acetaminop [place] as needed [facility] Atorvastati Atorvastati Yes Antonella 1 tablet Common n Calcium n Calcium [place] [facility] Lasix Lasix No Lasix Warfarin Warfarin No [...] Calcium 10 MG 10 MG 10 MG Vital Signs Vital Name Observation Time Observation Value Comments Source Systolic blood 2022-07-09 17:15:00 128 mm[Hg] Univer sity of pressure [facility] Diastolic blood 2022-07-09 17:15:00 88 mm[Hg] Unive rsity of pressure [facility] Heart rate 2022-07-09 17:15:00 91 /min Universi ty [facility] Body temperature 2022-07-09 17:15:00 36.78 Karly Univ ersity of [facility] Respiratory rate 2022-07-09 17:15:00 16 /min Univ ersity of [facility] Body height 2022-07-09 17:15:00 177.8 cm Universi ty of [facility] Body weight 2022-07-09 17:15:00 108.863 kg Universi ty [facility] BMI 2022-07-09 17:15:00 34.44 kg/m2 [facility] Oxygen saturation in 2022-07-09 17:15:00 95 /min [facility] Arterial blood by [facility] Pulse oximetry Branch height 2022-07-02 13:00:00 69 [in_i] [facility] weight 2022-07-02 13:00:00 240 [lb_av] [facility] temperature 2022-07-02 13:00:00 97.7 [degF] [facility] bmi 2022-07-02 13:00:00 35.44 kg/m2 [facility] blood pressure 2022-07-02 13:00:00 146 mm[Hg] [facility] - systolic [facility] blood pressure 2022-07-02 13:00:00 82 mm[Hg] [facility] - diastolic [facility] Systolic blood 2022-04-04 16:21:00 154 mm[Hg] Univer sity of [facility] Diastolic blood 2022-04-04 16:21:00 90 mm[Hg] Unive rsity of pressure [facility] Heart rate 2022-04-04 16:21:00 77 /min Universi ty [facility] Body temperature 2022-04-04 16:20:00 36.11 Karly Univ ersity of [facility] Respiratory rate 2022-04-04 16:20:00 18 /min [facility] Body height 2022-04-04 16:20:00 177.8 cm Universi ty of [place] [facility] [place] Body weight 2022-04-04 16:20:00 105.235 kg Universi ty of [place] [facility] BMI 2022-04-04 16:20:00 33.29 kg/m2 Universi ty of [facility] Oxygen saturation in 2022-04-04 16:20:00 97 /min University of Arterial blood by [facility] Pulse oximetry Branch Systolic blood 2022-02-15 20:27:00 125 mm[Hg] Univer sity of pressure [place] [facility] [place] Diastolic blood 2022-02-15 20:27:00 74 mm[Hg] Unive rsity of pressure [facility] Heart rate 2022-02-15 20:27:00 66 /min Universi ty of [place] [facility] [place] Body temperature 2022-02-15 20:27:00 36.17 [facility] Respiratory rate 2022-02-15 20:27:00 18 /min [facility] Body height 2022-02-15 20:27:00 177.8 cm Universi ty of [place] [facility] [place] Body weight 2022-02-15 20:27:00 105.235 kg Universi ty [facility] [place] [facility] [place] BMI 2022-02-15 20:27:00 33.29 kg/m2 Universi ty [facility] [place] [facility] Oxygen saturation in 2022-02-15 20:27:00 95 /min University of Arterial blood by [facility] Pulse oximetry Branch Procedures Procedure Date / Time Performed Performing Clinician Sourc e POCT URINALYSIS AUTO 2022-07-09 17:25:00 [facility]YSIS AUTO 2022-07-09 00:00:00 [facility] PO[facility] URINALYSIS AUTO 2022-04-04 16:30:00 Shirley Gaines [facility] ASSIGNMENT OF BENEFITS 2022-04-04 15:59:27 Doctor Unassigned, No [facility] Encounters Start End Encounter Admission Attending Care Care Encounter Source Date/Time Date/Time Type Type Clinicians Facility Department ID 2022-07-02 [id number] - Common 16:47:01 , Kim [id number] [facility] 2022-06-05 Outpatient [place] [facility] [id number] - Common 10:28:01 , Kim [id number] [facility] 2021-06-28 Outpatient Scha[place]roeck [facility] [id number] - Common 11:09:25 , Kim [id number] [facility] 2021-04-01 Outpatient R SAAD [facility] CHRI[facility]HER [id number] Univers 16:28:35 TODD [facility] 2021-04-01 [facility] [id number] Univers 12:28:56 TODD [facility] 2023-02-20 2023-02-20 [facility] [id number] Univers 15:00:00 15:00:00 [facility] 2023-02-12 2023-02-12 Outpatient R [facility] [id number] Univers 13:00:00 13:00:00 ity [facility] 2023-02-11 2023-02-11 Telephone [facility] 1.2.840.114 [id number] Univers 00:00:00 00:00:00 Shirley VALLES 350.1.13.10 [place] [phone] [address] 2023-02-07 2023-02-07 [facility] 1.2.840.114 [id number] Univers 00:00:00 00:00:00 Devang ORTIZLENARD 350.1.13.10 i [place] [phone] [address] 2023-01-23 2023-01-23 Out[facility] [id number] Univers 13:45:00 13:45:00 SHIRLEY anne o f [facility] 2022-07-09 2022-07-09 Out[facility] [id number] Univers 11:30:00 11:47:44 SHIRLEY schwartzy o f [facility] 2022-07-09 2022-07-09 Office [facility] 1.2.840.114 [id number] Univers 11:30:00 11:47:44 Visit Shirley VALLES 350.1.13.10 ity of [facility] 4.[place] [phone] Ne dic[address] 2022-07-02 2022-07-02 [facility] [id number] Co mmon 00:00:00 00:00:00 VISIT NEW [facility] it PT LEVEL 4 - CHI [facility] 2022-04-09 2022-04-09 Case Gaines, [facility] 1.2.840.114 [id number] Univers 00:00:00 00:00:00 Management Shirley VALLES 350.1.13.10 [place] [phone] [address] 2022-04-04 2022-04-04 Outpatient R LIANA [facility] [id number] Univers 11:00:00 11:53:16 SHIRLEY anne o [facility] 2022-04-04 2022-04-04 [facility] 1.2.840.114 [id number] Univers 11:00:00 11:53:16 Visit Shirley VALLES 350.1.13.10 ity of [facility] 4.[place] [phone] [address] 2022-04-04 2022-04-04 Orders Doctor CHRIS 1.2.840.114 [id number] Univers 00:00:00 00:00:00 Only Unassigned, LAUREN 350.1.13.10 ity of [place] [facility] 4.2.7.2.686 [place] as [phone] [address] 2022-02-15 2022-02-15 Outpatient R DEISY [facility] [id number] Univers 15:00:00 16:39:54 DEVANG ity of [facility] 2022-02-15 2022-02-15 Outpatient [facility] [id number] Univers 15:00:00 16:39:54 DEVANG ity [facility] 2022-02-15 2022-02-15 Office [facility] 1.2.840.114 [id number] Univers 15:00:00 16:39:54 Visit Deavng [place] 350.1.13.10 i ty of [facility] 4.2.7.2.[place] [id number] [address] 2022-02-08 2022-02-08 Orders Doctor CHRIS 1.2.840.114 [id number] Univers 00:00:00 00:00:00 Only Unassigned, LAUREN 350.1.13.10 ity of [facility] 4.2.7.2.686 [place] as [phone] [address] 2022-02-07 2022-02-07 Telephone [facility] 1.2.840.114 [id number] Univers 00:00:00 00:00:00 Devang [place] 350.1.13.10 i ty of [facility] 4.2.7.2.[place] [id number] [address] 2021-08-16 2021-08-16 Telephone [facility] 1.2.840.114 [id number] Univers 00:00:00 00:00:00 Devang [place] 350.1.13.10 i [place] [id number] [address] 2021-06-29 2021-06-29 [facility] [id number] Univers 10:15:00 11:03:20 DEVANG ity [facility] 2021-06-29 2021-06-29 Office [facility] 1.2.840.114 [id number] Univers 10:15:00 11:03:20 Visit Devang [place] 350.1.13.10 i ty of [facility] 4.2.7.2.[place] [phone] Ne dical NAL 204 [facility] 2021-06-29 2021-06-29 Outpatient R [facility] [id number] Univers 10:15:00 11:03:20 [facility] 2021-05-23 2021-05-23 Outpatient [facility] [id number] Univers 10:30:00 10:30:00 [facility] 2021-05-04 2021-05-04 Outpatient R [facility] [id number] Univers 09:00:00 09:00:00 [facility] 2021-05-01 2021-05-01 Outpatient [facility] [id number] Univers 10:00:00 11:13:51 [facility] 2021-05-01 2021-05-01 Office [facility] 1.2.840.114 [id number] Univers 09:55:06 11:13:51 Visit [facility] 350.1.13.10 i ty [facility] [place].2.[place] [phone] Ne dical [address] 2021-05-01 2021-05-01 Outpatient [facility] [id number] Univers 10:00:00 10:00:00 [facility] 2021-04-26 2021-04-26 Telephone [facility] 1.2.542.447 [id number] Univers 00:00:00 00:00:00 [facility] 350.1.13.10 it y of [place] 4.2.7.2.686 [place] GURDEEP?BLEA [phone] Ne dical NORMA [address] [place] [address] OFFICE [facility] 2021-04-20 2021-04-20 Outpatient [facility] [id number] Univers 13:00:00 13:49:39 [facility] 2021-04-20 2021-04-20 Nurse Nurse, [facility] 1.2. 840.114 [id number] Univers 12:47:11 13:49:39 Visit Doron Sarah VALLES 350.1.13.10 ity of [facility] 4.2.7.[place] [phone] [facility] 204 [facility] 2021-04-20 2021-04-20 Telephone [facility] 1.2.840.114 [id number] Univers 00:00:00 00:00:00 [facility] 350.1.13.10 it y of [place] 4.2.7.2.686 [place] GURDEEP?BLEA [phone] [address] MEDICAL OFFICE BUILDING 2021-04-14 2021-04-14 Telephone [facility] 1.2.840.114 [id number] Univers 00:00:00 00:00:[address] [facility] 350.1.13.10 i [place] [id number] [address] 2021-04-13 2021-04-13 Outpatient Becca SORIA [facility] [id number] Univers 11:00:00 11:00:00 [facility] 2021-04-13 2021-04-13 Outpatient Becca [facility] [id number] Univers 11:00:00 11:00:00 [facility] 2021-04-12 2021-04-12 Outpatient [facility] [id number] Univers 14:30:00 15:46:08 [facility] 2021-04-12 2021-04-12 Outpatient R DORON [facility] [id number] Univers 14:30:00 15:46:08 [facility] 2021-04-12 2021-04-12 Outpatient Becca [facility] [id number] Univers 14:30:00 15:46:08 [facility] 2021-04-12 2021-04-12 Office [facility] 1.2.840.114 [id number] Univers 14:20:54 15:46:08 Visit Sarah VALLES 350.1.13.10 ity [facility] 4[place]2.[place] [phone] Me dical NAL 204 [facility] 2021-04-12 2021-04-12 Outpatient Becca SAL [facility] [id number] Univers 14:30:00 14:30:00 SARAH itgracie [facility] 2021-03-31 2021-03-31 Outpatient Becca SORIA [facility] [id number] Univers 11:12:45 23:59:00 [facility] 2021-03-31 2021-03-31 Hospital [facility] 1.2.840.114 [id number] Univers 11:12:45 23:59:00 Encounter [facility] HEALTH 350.1.13.10 ity [facility] 4.2.7.2.686 [place] GURDEEP?BLEA [phone] Ne dical BOYDEY 809 [facility] OFFICE [facility] 2021-03-31 2021-03-31 Outpatient Becca SORIA [facility] [id number] Univers 11:12:45 23:59:00 GENNA [facility] 2021-03-31 2021-03-31 Office [facility] 1.2.840.114 [id number] Univers 11:08:32 11:41:27 Visit [facility] 350.1.13.10 it y of [place] 4.2.7.2.686 [place] GURDEEP?BLEA [phone] Ne dical KNEY 198 [facility] OFFICE [facility] 2021-03-31 2021-03-31 Outpatient Becca SORIA [facility] [id number] Univers 11:00:00 11:41:27 [facility] 2021-03-31 2021-03-31 Outpatient Becca SORIA [facility] [id number] Univers 11:00:00 11:00:00 GENNA [facility] 2021-03-31 2021-03-31 Outpatient Becca SORIA [facility] [id number] Univers 11:00:00 11:00:00 GENNA [facility] 2021-03-31 2021-03-31 Outpatient Becca SORIA [facility] [id number] Univers 11:00:00 11:00:00 GENNA ity of [facility] 2021-03-31 2021-03-31 Telephone [facility] 1.2.041.772 [id number] Univers 00:00:00 00:00:00 Genna S HEALTH 350.1.13.10 it y [facility] 4.2.7.2.686 [place] GURDEEP?BLEA [id number] [address] OFFICE [facility] 2021-03-30 2021-03-30 Telephone [facility] 1.2.031.900 [id number] Univers 00:00:00 00:00:00 Sarah VALLES 350.1.13.10 [place] [phone] [facility] 204 [facility] 2021-03-27 2021-03-27 Office [facility] 1.2.840.114 [id number] Univers 11:15:08 12:12:54 Visit [facility] 350.1.13.10 i ty of [place] [id number] [facility] 204 [facility] 2021-03-27 2021-03-27 Outpatient R [facility] [id number] Univers 11:30:00 11:30:00 [facility] 2021-03-27 2021-03-27 Outpatient R [facility] [id number] Univers 11:30:00 11:30:00 DEVANG ity [facility] 2021-03-27 2021-03-27 Orders Doctor CHRIS 1.2.840.114 [id number] Univers 00:00:00 00:00:00 Only Unassigned, LAUREN 350.1.13.10 ity of [place] 4.2.7.2.686 [place] [phone] [address] 2021-03-24 2021-03-24 Telephone [facility] 1.2.690.329 [id number] Univers 00:00:00 00:00:00 Genna S Health 350.1.13.10 it y of [place] 4.2.7.2.686 [place] Gurdeep?Blea [phone] Ne jose osorio [address] [facility] Office [facility] 2021-03-10 2021-03-10 Hospital [facility] 1.2.840.114 [id number] Univers 11:45:00 23:59:00 Encounter Genna Valles 350.1.13.10 ity of [place] [id number] [facility] [address] [place] 2021-03-10 2021-03-10 Outpatient [facility] [id number] Univers 11:00:00 11:09:25 [facility] 2021-03-10 2021-03-10 Outpatient [facility] [id number] Univers 11:00:00 11:00:00 [facility] 2021-03-10 2021-03-10 Office [facility] 1.2.840.114 [id number] Univers 10:44:29 10:59:29 Visit Genna [facility] 350.1.13.10 it y of [place] 4.2.7.2.686 [place] Gurdeep?Blea [phone] Ne jose camacho [address] [facility] Office [facility] 2021-03-10 2021-03-10 Orders Doctor CHRIS 1.2.840.114 [id number] Univers 00:00:00 00:00:00 Only Unassigned, LAUREN 350.1.13.10 ity of [facility] 4.2.7.2.686 [place] as [id number] [facility] [address] [place] 2021-03-10 2021-03-10 [facility] 1.2.085.948 [id number] Univers 00:00:00 00:00:00 Genna S Health 350.1.13.10 it y of [place] 4.2.7.2.686 [place] Gurdeep?Blea [id number] Ne jose osorio [address] [facility] Office [facility] 2021-03-07 2021-03-07 Outpatient [facility] [id number] Univers 11:15:00 11:15:00 GENNA [facility] 2021-03-03 2021-03-03 Patient Mannie [facility] 1.2.840.114 [id number] Univers 00:00:00 00:00:00 Outreach [facility] 350.1.13.10 i ty of Surgical 4.2.7.2.686 [place] as Specialti [id number] Ne jose comer 198 [facility] 2021-02-28 2021-02-28 Outpatient R YANG [facility] [id number] Univers 11:15:00 11:15:00 GENNA ity of [facility] 2021-02-28 2021-02-28 Telephone [facility] 1.2.125.623 [id number] Univers 00:00:00 00:00:00 Genna S Health 350.1.13.10 it y of [place] 4.2.7.2.686 [place] Gurdeep?Blea [phone] Ne jose osorio [address] [facility] Office [facility] 2021-02-27 2021-02-27 Telephone [facility] 1.2.840.114 [id number] Univers 00:00:00 00:00:00 [facility] 350.1.13.10 it y of [place] 4.2.7.2.686 [place] Gurdeep?Blea [id number] Ne jose osorio [address] [facility] Office [facility] 2021-02-24 2021-02-24 Patient Luciano Chand 1.2.840.114 [id number] Univers 00:00:00 00:00:00 Outreach Leelee Pediatric 350.1.13.10 ity of [place] [id number] [address] 2021-02-23 2021-02-23 Telephone [facility] 1.2.035.178 [id number] Univers 00:00:00 00:00:00 Genna S Health 350.1.13.10 it y of [place] 4.2.7.2.686 [place] Gurdeep?Blea [id number] Ne jose osorio [address] [facility] Office [facility] 2021-02-21 2021-02-21 [facility] 1.2.840.114 [id number] Univers 13:27:42 23:59:00 Encounter Genna Bhardwaj [place] 350.1.13.10 ity of [place].2.[place] [id number] [facility] [address] [place] 2021-02-21 2021-02-21 Office Yang [facility] 1.2.840.114 [id number] Univers 10:18:05 11:57:08 Visit Genna Bhardwaj Health 350.1.13.10 it y of [place] 4.2.7.2.686 [place] Gurdeep?Blea [phone] [address] Medical Office [facility] 2021-02-21 2021-02-21 Outpatient R YANG [facility] [id number] Univers 10:00:00 10:00:00 GENNA ity of [facility] 2021-02-21 2021-02-21 Telephone Jerardo [facility] 1.2.840.114 [id number] Univers 00:00:00 00:00:00 Stewart Mireille [facility] 350.1.13.10 it y of [place] 4.2.7.2.686 [place] Gurdeep?Blea [id number] [address] Medical Office [facility] 2020-07-08 2020-07-08 Outpatient R MARK [facility] [id number] Univers 16:10:00 16:10:00 KHARI ity of [facility] 2020-06-22 2020-06-22 [facility] Saad [facility] 1.2.338.622 [id number] Univers 08:05:00 10:53:00 Encounter Todd Valles 350.1.13.10 ity of [place] [id number] [facility] [address] 2020-06-21 2020-06-21 Laboratory Only, Adc Test [facility] 1.2.840. 114 [id number] Univers 10:21:28 10:36:28 Only Todd Huerta 350.1.13.1 0 ity of [place] 4[place].2.[place] [id number] [facility] [address] 2020-06-21 2020-06-21 Outpatient R SAAD [facility] [id number] Univers 10:30:00 10:30:00 TODD gracie [facility] 2020-06-21 2020-06-21 Outpatient Becca HUERTA [facility] [id number] Univers 10:30:00 10:30:00 TODD gracie [facility] 2020-06-21 2020-06-21 Orders Doctor PEREZ 1.2.840.114 [id number] Univers 00:00:00 00:00:00 Only Unassigned, LAUREN 350.1.13.10 ity of [facility] 4.2.7.2.686 [place] as [phone] [facility] [address] 2020-06-10 2020-06-10 Outpatient Becca MARK [facility] [id number] Univers 16:20:00 16:20:00 KHARI gracie [facility] 2020-06-10 2020-06-10 Outpatient Becca TATUMUM [facility] [id number] Univers 16:20:00 16:07:12 KHARI [facility] 2020-06-01 2020-06-01 [facility] 1.2.048.420 [id number] Univers 07:37:00 11:21:00 Encounter Todd Valles 350.1.13.10 ity [facility] 4.2.7.2.[place] [id number] [place] 027541 [place] 2020-06-01 2020-06-01 Outpatient Becca [facility] [id number] Univers 07:37:00 11:21:00 TODD [facility] 2020-05-31 2020-05-31 Laboratory Only, Adc Test [facility] 1.2.840. 114 [id number] Univers 10:00:17 10:15:17 Only Todd Huerta 350.1.13.1 0 ity [facility] 4.2.7.2.[place] [id number] [facility] [address] [place] 2020-05-31 2020-05-31 Outpatient Becca HUERTA [facility] [id number] Univers 10:00:00 10:00:00 TODD gracie [facility] 2020-05-31 2020-05-31 Outpatient Becca HUERTA [facility] [id number] Univers 10:00:00 10:00:00 TODD [facility] 2020-05-31 2020-05-31 Orders Doctor CHRIS 1.2.840.114 [id number] Univers 00:00:00 00:00:00 Only Unassigned, LAUREN 350.1.13.10 ity of [facility] 4.2.7.2.686 [place] as [phone] [address] 2020-05-23 2020-05-23 Steelscope Operator Yelitza, Ileana Lab Main [facility] 1.2.8 40.114 [id number] Univers 12:28:57 12:43:57 Visit Todd Huerta 350.1.13.1 0 ity of [place] 4.[place].2.[place] [id number] Ne dic[address] 2020-05-23 2020-05-23 [facility] [id number] Univers 12:00:00 12:00:00 TODD [facility] 2020-05-23 2020-05-23 Outpatient R SAAD [facility] [id number] Univers 12:00:00 12:00:00 TODD [facility] 2020-05-23 2020-05-23 Orders Doctor CHRIS 1.2.840.114 [id number] Univers 00:00:00 00:00:00 Only Unassigned, LAUREN 350.1.13.10 ity of [facility] 4.2.7.2.686 [place] as [phone] [address] 2019-10-19 2019-10-19 Outpatient Juanita Grantt 30 [id number] Common 11:15:00 11:15:00 t Specialty/U Sp leonela Specialty rology - [facility] 2019-07-31 2019-07-31 Outpatient Juanita Grantt 29 [id number] Common 10:45:00 10:45:00 t Specialty/U Sp leonela Specialty rology - [facility] /[facility] 2019-07-27 2019-07-27 Outpatient Brazyesy [facility] 29 [id number] Common 15:46:00 15:46:00 t Specialty/U Sp leonela Specialty rology - [facility] 2019-07-24 2019-07-24 Outpatient Juanita Grantt 29 [id number] Common 13:00:00 13:00:00 t Specialty/[facility] Results Test Description Test Time Test Comments [...] U APPEAR (test code = 3267) clear [facility] [id number] 17:30:00 Test Item Value Reference Range Interpretation [...] U APPEAR (test code = clear 3267) [facility] URINALYSIS, [id number] 17:27:00 Test Item Value Reference Range Interpretation [...] 3267) Lab Interpretation (test code Abnormal = 74377-8) [facility] URINALYSIS, [id number] 17:27:00 Test Item Value Reference Range Interpretation [...] 3267) Lab Interpretation (test code Abnormal = 25226-2) [facility] [id number] 16:31:00 Test Item Value Reference Range Interpretation [...] 3267) Lab Interpretation (test code Abnormal = 82052-9) [facility] [id number] 16:31:00 Test Item Value Reference Range Interpretation [...] 3267) Lab Interpretation (test code Abnormal = 31552-4) [facility], [id number] 16:31:00 Test Item Value Reference Range Interpretation [...] 3267) Lab Interpretation (test code Abnormal = 33015-5) [facility]
[2023-02-28] MEDS ORDERED: DOCUSATE NA 100 MG CAP PO PRN (22:55)
[2023-02-28] MEDS ORDERED: TRAMADOL HCL 50 MG TAB PO PRN (23:00)
[2023-03-01 00:10] VITALS: BMI 35.4
[2023-03-01] MEDS ORDERED: BISACODYL 10 MG RECTAL SUPP PR PRN (04:08)
[2023-03-01 04:15] LABS: Absolute Lymphocytes (CBC) 1.7 K/uL (0.7-4.9); Lymphocytes % 24.3 % (15.3-44.8); MCV 94.7 fL (80-100); MPV 7.9 fL (7.6-11.3); Platelets 208 thou/uL (152-406); RBC Red Blood Cell Count 3.91 M/uL (4.33-5.43)
[2023-03-01 04:18] LABS: Protime INR 3.27
[2023-03-01 05:06] LABS: Albumin 2.8 g/dL (3.4-5.0); Magnesium 1.9 mg/dL (1.6-2.4); Potassium 4.3 mEq/L (3.5-5.1); Prealbumin 14.2 mg/dL (20-40)
[2023-03-01 05:46] LABS: Urine Bacteria <20 /HPF (<20); Urine Bilirubin NEGATIVE (Negative); Urine Blood Negative (Negative); Urine Clarity Clear (Clear); Urine Color Light-Yellow (Yellow); Urine Glucose NEGATIVE (Negative); Urine Protein NEGATIVE (Negative); Urine RBC <5 /HPF (None Seen); Urine Urobilinogen Normal (Normal)
[2023-03-01] MEDS: TAMSULOSIN 0.4 MG SR CAP PO SCH (08:16)
[2023-03-01] MEDS: FUROSEMIDE 20 MG TABLET PO SCH (08:16)
[2023-03-01] MEDS: SPIRONOLACTONE 25 MG TABLET PO SCH (11:26)
[2023-03-01] MEDS: carvediloL 3.125 MG TAB PO SCH (13:30)
--- NOTE | 2023-03-01 13:49 | P.RH.PN ---
Estimated Length of Stay: 12 Expected Discharge Date: 03/07/23 Discharge Disposition Plan: Home Family Support: Yes [facility] Goal: Mobility, Transfers, Self Care Vital Signs: Last Vital Signs Temp 96.9 F 03/01/23 07:12 Pulse 70 03/01/23 13:30 Resp 19 03/01/23 07:12 BP 122/76 03/01/23 13:30 Pulse Ox 94 03/01/23 07:12 Laboratory: Laboratory Last Values WBC 7.20 thou/uL (4.3-10.9) 03/01/23 03:52 RBC 3.91 M/uL (4.33-5.43) L 03/01/23 03:52 Hgb 12.5 g/dL (13.6-17.9) L 03/01/23 03:52 Hct 37.0 % (39.6-49.0) L 03/01/23 03:52 MCV 94.7 fL (80-100) 03/01/23 03:52 MCH 31.8 pg (27.0-35.0) 03/01/23 03:52 MCHC 33.6 g/dL (32.0-36.0) 03/01/23 03:52 RDW 13.7 % (12.1-15.2) 03/01/23 03:52 Plt Count 208 thou/uL (152-406) 03/01/23 03:52 MPV 7.9 fL (7.6-11.3) 03/01/23 03:52 Neutrophils % 51.9 % (41.7-73.7) 03/01/23 03:52 Lymphocytes % 24.3 % (15.3-44.8) 03/01/23 03:52 Monocytes % 10.4 % (3.3-12.3) 03/01/23 03:52 Eosinophils % 12.1 % (0-4.4) H 03/01/23 03:52 Basophils % 1.3 % (0-1.3) 03/01/23 03:52 Absolute Neutrophils 3.7 K/uL (1.8-8.0) 03/01/23 03:52 Absolute Lymphocytes 1.7 K/uL (0.7-4.9) 03/01/23 03:52 Absolute Monocytes 0.7 K/uL (0.1-1.3) 03/01/23 03:52 Absolute Eosinophils 0.9 K/uL (0-0.5) H 03/01/23 03:52 Absolute Basophils 0.1 K/uL (0-0.5) 03/01/23 03:52 PT 36.0 SECONDS (9.5-12.5) H 03/01/23 03:52 INR 3.27 03/01/23 03:52 Sodium 135 mEq/L (136-145) L 03/01/23 03:52 Potassium 4.3 mEq/L (3.5-5.1) 03/01/23 03:52 Chloride 99 mEq/L (98-107) 03/01/23 03:52 Carbon Dioxide 35 mEq/L (21-32) H 03/01/23 03:52 Anion Gap 5.3 mEq/L (5.0-15.0) 03/01/23 03:52 BUN 15 mg/dL (7-18) 03/01/23 03:52 Creatinine 0.78 mg/dL (0.70-1.30) 03/01/23 03:52 Est GFR (CKD-EPI) 89 ml/min (=/>90) L 03/01/23 03:52 Glucose 101 mg/dL (74-106) 03/01/23 03:52 Calcium 9.4 mg/dL (8.5-10.1) 03/01/23 03:52 Magnesium 1.9 mg/dL (1.6-2.4) 03/01/23 03:52 Albumin 2.8 g/dL (3.4-5.0) L 03/01/23 03:52 Prealbumin 14.2 mg/dL (20-40) L 03/01/23 03:52 Urine Color Light-yellow (Yellow) 03/01/23 04:50 Urine Clarity Clear (Clear) 03/01/23 04:50 Urine pH 7.0 (5.0-7.0) 03/01/23 04:50 Ur Specific [place] 1.010 (1.005-1.030) 03/01/23 04:50 Glucose (UA)(Auto) Negative (Negative) 03/01/23 04:50 Urine Ketones Negative (Negative) 03/01/23 04:50 Urine Blood Negative (Negative) 03/01/23 04:50 Urine Nitrite Negative (Negative) 03/01/23 04:50 Urine Bilirubin Negative (Negative) 03/01/23 04:50 Urine Urobilinogen Normal (Normal) 03/01/23 04:50 Ur Leukocyte Esterase Negative Pattie/uL (Negative) 03/01/23 04:50 Urine RBC <5 /HPF (None Seen) 03/01/23 04:50 Urine WBC <5 /HPF (<5) 03/01/23 04:50 Ur Squamous Epith Cells None seen /HPF (None Seen) 03/01/23 04:50 Urine Bacteria <20 /HPF (<20) 03/01/23 04:50 Urine Culture Reflexed Not needed 03/01/23 04:50 Urine Total Protein Negative (Negative) 03/01/23 04:50 Weight: 240 lb Wound Present: No Physician Update: Labs were reviewed and are stable. BIMS 11 but refusing therapy. Patient is DNR. Total dependent now due to leg weakness and pain. Two to three weeks ago he with at modified independent assistance. WC 20' wtih max assistance. May be depressed and will start Duloxetine 20 mg daily. Summary: Patient's care plan and histologic technician goals have been reviewed and revised as necessary. Please see the Rehabilitation Signature page for all necessary signatures.
[2023-03-01] MEDS: WARFARIN SODIUM 4 MG TAB PO SCH (17:00)
[2023-03-01] MEDS: VERICIGUAT 5 MG PO SCH (17:00)
[2023-03-01] MEDS: DULOXETINE 20 MG CAP PO SCH (17:23)
[2023-03-01] MEDS: LIDOCAINE 4% PATCH TOP SCH (17:25)
[2023-03-01] MEDS: GUAIFENESIN/DM 5 ML UCUP PO PRN (18:35)
[2023-03-01] MEDS: GABAPENTIN 100 MG CAP PO SCH (20:41)
[2023-03-01] MEDS: MAGNESIUM OXIDE 400 MG TAB PO SCH (20:41)
[2023-03-01] MEDS: MELATONIN 5 MG TABLET PO SCH ×2 (20:43→20:44)
[2023-03-01] MEDS: [UNRECOGNIZED DRUG - REMARK] PO SCH (20:56)
[2023-03-02] MEDS ORDERED: ALBUTEROL 2.5 MG/3 ML NEB SOL NEB PRN (02:17)
[2023-03-02] MEDS ORDERED: ACETAMINOPHEN 325 MG TABLET PO PRN (02:48)
--- NOTE | 2023-03-02 03:24 | HP ---
Date of Admission: 02/28/2023 This is a [id number] Rehabilitation and Admission History and Physical. Time Of Service: 12:00 noon. Chief Complaint: "I became weak. I broke my right foot." History Of Present Illness: Mr. Guzman is an 83-year-old patient who was seen in the emergency room around 2 weeks following his inability to ambulate. At that time, he was diagnosed with a recurrent urinary tract infection and a recent fall with fractures of his right foot and toe. He also was foun d to be short of breath, which had developed and worsened over the day that he came to the scene. He did have an indwelling catheter and was on multiple antibiotics. Furthermore, he has had chronic sp inal stenosis and has had significant pain in the back, making it difficult for him to be up and ambu late. He was diagnosed with acute renal insufficiency secondary to cardiorenal or prerenal syndrome with hypokalemia. He also had hypokalemia and hypocalcemia. He did develop worsening shortness of b reath and found to have lactic acidosis with levels up to 4 and worsening renal function with creatin ine to 1.66. White blood cell count was elevated and the chest x-ray just identified cardiomegaly. He was treated with meropenem as he was at a high risk of having a resistant organism, given a bolus of fluids, treated with BiPAP and electrolytes. He received Lasix and spironolactone. Given urinary retention, he was seen by the Urology Service, started on Flomax. He was treated for UTI and sepsis as noted, given the elevated lactic acid and cultures were done. His urine cultures did show mixed kelsea, and again treated for suspected sepsis with pneumonia. As a result of the patient's decline i ncluding the 2 weeks prior to coming to the hospital, he became significantly debilitated and is not able to ambulate any meaningful distances, not able to perform his activities of daily living that re quire standing, such as being able to put on his lower body dressing and donning and doffing shoes an d being able to maintain an active lifestyle which the patient enjoyed about 4 weeks previously. As a result, he is determined not to be an appropriate candidate for aggressive inpatient rehabilitation , where physical, occupational, and if need be, speech therapy will be done and his multiple and shelia ral comorbid medical conditions will be addressed adequately. Past Medical History: Hypertension, melena, prostate cancer, obstructive sleep apnea. He has also h ad CHF and atrial fibrillation. Surgeries: Include spine surgery, elbow and shoulder surgery. Diagnostic Studies: X-ray/Imaging: Chest x-ray on 02/26 showed [id number] bilateral pulmonary opacities. Lungs are under-inflated. Heart, mildly to moderately enlarged. Allergies: NO KNOWN DRUG ALLERGIES. Social History: No alcohol, tobacco, or IV drug use. Patient lives at home with . Current Medications: Dulcolax 10 mg per rectum as needed for constipation, Coreg 3.125 mg daily, Col luis 100 mg daily, Cymbalta 20 mg daily, Lasix 60 mg daily, melatonin 10 mg at bedtime, spironolactone 12.5 mg daily, Flomax 0.4 mg daily, Ultram 50 mg daily, and Coumadin 4 mg daily. Laboratory Studies: His INR is 3.27 with a target of 2.5-3.5. PT is 36.0. White blood cell count 7 .2, hemoglobin 12.5 and hematocrit 37.0, platelets are 208. Sodium 135, potassium 4.3, chloride 99, carbon dioxide 35, BUN 15, creatinine 0.78, glucose 101, calcium 9.4, magnesium 1.9, albumin 2.8, pre albumin 14.2, and urinalysis is normal. Review of Systems: Mr. Guzman reports that he is very weak in the lower extremities. He has mild myalgias and arthralgi as. Denies rash. Denies headache. Denies any psychiatric complaints, and no significant issues suc h as gastrointestinal or genitourinary issues, although there is constipation and the recurrent urina ry tract infections. Examination otherwise negative on a 10-point systems review. Physical Examination: Vital Signs: Blood pressure 132/76, pulse of 70, respiratory rate of 17, temperature 97.1, oxygen sa turation 94%. General: Mr. Guzman is lying in bed, waiting for therapy to begin. HEENT: He is normocephalic, atraumatic. Sclerae anicteric. Oropharynx is moist. Neck: Supple. Chest: Clear. Heart: Regular. Abdomen: The patient is obese with a BMI of 35.4. Neurological: He has no focal neurological deficits. Diffuse weakness in the lower extremities. Ho wever, he is at least 3-4 proximally and distally without focal findings in both lower and upper extr emities. Coordination appears intact in upper and lower extremities. For gait, he will be ambulated with gait belt and physical therapist and wheelchair . Current Level Of Functioning: He is independent for eating, oral hygiene, supervision for toileting and shower, independent for upper body dressing, moderate assist for lower body dressing and donning and doffing of footwear, moderate assistance for rolling left to right, right to left, and maximal as sistance for going from a [id number] position and moderate assistance from lying to sitting on a sl iding board, maximal assistance for sit to stand as noted, maximum assistance going from bed to chair and maximum assistance with toilet transfer. He has not ambulated, 0 distances for ambulation in [facility] thus far. Rehab And Medical Assessment And Plan: Mr. Guzman is admitted to the inpatient rehabilitation unit w ith impairment category 20 miscellaneous. His impairment group code is 16, debility, noncardiac, non pulmonary. His etiologic diagnosis is sepsis secondary to urinary tract infection and his comorbidit ies, decreased mobility, obesity, decrease in physical functioning, pneumonia, pain, urinary retentio n, urinary tract infection, hyponatremia, atrial fibrillation. Plan: 1.He will have physical and occupational, and if need be speech therapy for 3-1/2 hours, 7 days. 2.I will continue Coumadin 4 mg daily with a target INR of 2.5-3.5. 3.Continue Ultram 50 mg every 4 hours as needed for pain. 4.Continue Flomax 0.4 mg daily for prostate hypertrophy. 5.Continue spironolactone 12.5 mg daily for fluid management along with Lasix 60 mg daily. 6.Continue Coreg 3.125 mg for blood pressure and heart rate control. 7.Continue Cymbalta 20 mg daily for mood stabilization and depression. 8.Continue Dulcolax 10 mg per rectum for constipation. Impact Of His Comorbidities: Given his obesity and debility, he had not been walking for about a mon th. The patient may require very aggressive therapy, but he appears to be motivated and is up for th at. His comorbidities such as diabetes, hypertension, will be aggressively managed to facilitate him doing well. He will have incentive spirometry to help recover his pulmonary function as he works on regaining endurance. Rehab Specific Plan: Mr. Guzman will have 3.5 hours, 5 out of 7 days for physical, occupational, and speech therapy to improve his ability to transfer from bed to toilet to chair to shower and performi ng activities such as showering and toileting. Also forced him to dress upper and lower body and don hieu and doffing shoes. He will have physical therapy to help with his ability to ambulate 500 feet with modified independence, up and down 10 steps with modified independence. He will have speech the rapy as need be to maintain good cognitive functioning and to help him with his strategies of recover y and safety awareness. [facility], daily, [id number] basis to assess and manage his comorbid conditions and to address the need for pain, for blood draws, administration of medications, and all intercurrent issue s. He will have physician evaluation and management on a daily basis to integrate all of his comorbid co nditions and address his rehabilitation progress. Mr. Guzman has a good understanding of the process of admission to the inpatient rehabilitation [facility] and he has a good potential to do very well receiving physical and occupational therapy and, if n eed be, speech therapy. As necessary, assistance from the Respiratory Service and Cardiology Service may be sought. Given his complex medical condition and risk of further complications, rehabilitatio n cannot be safely or effectively provided at the lower level of care such as jail. Barriers To Discharge: The patient does have a class 1 obesity at 240 pounds and 5 feet 9 inches, an d has significant debility, but he is able to move lower extremities very well while in bed without a symmetry and he is motivated and should be able to do very well. Estimated Length Of Stay: Is about 12 days. Disposition: Home with family. Prognosis: Good. Rehabilitation Goals: 1.Independent with upper and lower body dressing, toileting, transferring. 2.Independent with donning and doffing of shoes. 3.Independent with ambulating 250 feet. 4.Independent going up and down 10 steps. 5.Independent with cognitive functioning. 6.To have all of his medical conditions managed optimally. 7.The above goals were reviewed with Mr. Guzman and he is in agreement. By signing this document, I acknowledge I have personally performed a full physical examination on Mr. Guzman no later than 24 hours after admission to the inpatient rehabilitation facility and determ ined that he is able to tolerate the above course of treatment at an intensive level for a reasonable period of time. A detailed individualized plan of care for him will be completed by hospital day 4 based on the preadmission screen, history and physical and therapy evaluations. LISSET Voice ID: [id number]
[2023-03-02] MEDS: DULOXETINE 20 MG CAP PO SCH (07:20)
[2023-03-02] MEDS: LIDOCAINE 4% PATCH TOP SCH (07:20)
[2023-03-02] MEDS: GABAPENTIN 100 MG CAP PO SCH ×2 (07:20→19:55)
[2023-03-02] MEDS: MAGNESIUM OXIDE 400 MG TAB PO SCH ×2 (07:20→19:55)
[2023-03-02] MEDS: TAMSULOSIN 0.4 MG SR CAP PO SCH (07:21)
[2023-03-02] MEDS: FUROSEMIDE 20 MG TABLET PO SCH (07:22)
[2023-03-02 07:41] LABS: Protime INR 3.45
[2023-03-02] MEDS: GUAIFENESIN/DM 5 ML UCUP PO PRN ×2 (09:54→23:55)
[2023-03-02] MEDS: SPIRONOLACTONE 25 MG TABLET PO SCH (10:10)
[2023-03-02] MEDS: carvediloL 3.125 MG TAB PO SCH (12:50)
[2023-03-02] MEDS: WARFARIN SODIUM 4 MG TAB PO SCH (16:45)
[2023-03-02] MEDS: VERICIGUAT 5 MG PO SCH (16:45)
[2023-03-02] MEDS: MELATONIN 5 MG TABLET PO SCH (19:54)
[2023-03-02] MEDS: [UNRECOGNIZED DRUG - REMARK] PO SCH (19:55)
[2023-03-03 07:41] LABS: Protime INR 3.78
[2023-03-03] MEDS: MAGNESIUM OXIDE 400 MG TAB PO SCH ×2 (08:00→19:21)
[2023-03-03] MEDS: TAMSULOSIN 0.4 MG SR CAP PO SCH (08:20)
[2023-03-03] MEDS: DULOXETINE 20 MG CAP PO SCH (08:20)
[2023-03-03] MEDS: FUROSEMIDE 20 MG TABLET PO SCH (08:20)
[2023-03-03] MEDS: GABAPENTIN 100 MG CAP PO SCH ×2 (08:20→19:21)
[2023-03-03] MEDS: LIDOCAINE 4% PATCH TOP SCH (08:21)
[2023-03-03] MEDS: SPIRONOLACTONE 25 MG TABLET PO SCH (08:21)
[2023-03-03] MEDS: carvediloL 3.125 MG TAB PO SCH (13:50)
[2023-03-03] MEDS: VERICIGUAT 5 MG PO SCH (16:20)
[2023-03-03] MEDS: BENZONATATE 100 MG CAP PO PRN (16:20)
[2023-03-03] MEDS: WARFARIN SODIUM 4 MG TAB PO SCH (16:21)
[2023-03-03] MEDS: GUAIFENESIN/DM 5 ML UCUP PO PRN (16:22)
[2023-03-03] MEDS: MELATONIN 5 MG TABLET PO SCH (19:20)
[2023-03-03] MEDS: [UNRECOGNIZED DRUG - REMARK] PO SCH (19:21)
[2023-03-04 04:07] LABS: Protime INR 3.92
[2023-03-04] MEDS: FUROSEMIDE 20 MG TABLET PO SCH (07:40)
[2023-03-04] MEDS: GABAPENTIN 100 MG CAP PO SCH ×2 (07:41→20:02)
[2023-03-04] MEDS: DULOXETINE 20 MG CAP PO SCH (07:42)
[2023-03-04] MEDS: TAMSULOSIN 0.4 MG SR CAP PO SCH (07:42)
[2023-03-04] MEDS: MAGNESIUM OXIDE 400 MG TAB PO SCH ×2 (07:42→20:02)
[2023-03-04] MEDS: SPIRONOLACTONE 25 MG TABLET PO SCH (10:01)
[2023-03-04] MEDS: LIDOCAINE 4% PATCH TOP SCH (10:03)
[2023-03-04] MEDS: LOPERAMIDE HCL 2 MG CAPSULE PO PRN (10:20)
[2023-03-04] MEDS: carvediloL 3.125 MG TAB PO SCH (13:35)
[2023-03-04] MEDS: WARFARIN SODIUM 4 MG TAB PO SCH (16:02)
[2023-03-04] MEDS: VERICIGUAT 5 MG PO SCH (17:04)
[2023-03-04] MEDS: MELATONIN 5 MG TABLET PO SCH (20:02)
[2023-03-04] MEDS: [UNRECOGNIZED DRUG - REMARK] PO SCH (20:05)
--- NOTE | 2023-03-04 20:37 | PN ---
Date of Progress Note: 03/04/2023 Time Of Service: 1:15 p.m. Subjective: Mr. Guzman is lying in bed in between therapy sessions. He said that he did have a lot of exercise this morning and he felt somewhat tired from the exercises. Review of Systems: Mild shortness of breath. Does have oxygen via nasal cannula. Mild fatigue was noted. No fevers or chills. No nausea or vomiting. Mild myalgias and arthralgias. No rash. No psychiatric issues. N o other positives on the systems review. Physical Examination: Vital Signs: Blood pressure 129/79, pulse of 61, respiratory rate of 18, temperature is 97.0, oxygen saturation 92%. General: Mr. Guzman is resting in his bed. He is in no significant distress. Again, oxygen via juan al cannula. HEENT: Normocephalic, atraumatic. Sclerae are anicteric. Chest: There are slightly decreased breath sounds. He does have a class 2 obesity, body habitus. Laboratory Studies: His INR today is 3.92. X-ray/imaging: No new x-rays or imaging. Medications: Tylenol 650 mg every 6 hours, albuterol nebulizer 2.5 mg every 4 hours, Tessalon Perles 100 mg every 8 hours, Dulcolax 10 mg as needed per rectum, Coreg 3.125 mg daily, Colace 100 mg daily , Cymbalta 20 mg daily, Lasix 60 mg daily, gabapentin 100 mg twice daily, Robitussin 10 mg every 6 ho urs as needed for cough, ipratropium 0.5 mg nebulizer every 4 hours as needed, lidocaine patch apply 1 patch daily as needed, Imodium 2 mg every 4 hours as needed, magnesium oxide 400 mg twice daily, me latonin 10 at bedtime, Aldactone 12.5 mg daily, Flomax 0.4 mg daily, Coumadin 4 mg daily, tramadol 50 mg every 4 hours as needed. Current Functional Status: Today, Mr. Guzman completed bed mobility supine to sit with max assist. He up transfer and stand and pivot with also max assist. He did stand with help of a Natasha lift. He was somewhat exhausted; however, he did have oxygen saturations 94% to 100% on 2 L of oxyg en via nasal cannula. at wheelchair mobilization for 40 feet with minimum assistance. In terms of his occupational therapy, he was fatigued in bed and did sit to stand, toilet transfers wit h mod assist. Progress Towards Rehabilitation Goals: Mr. Guzman is making fair progress towards his goals of being able to return to normal, where he would be at a modified independent level for upper and lower body dressing, transferring, toileting, showering, ambulating 500 feet and up and down 10 steps along wit h continuing to perform his cognitive functioning independently. Assessment: Mr. Guzman is an 83-year-old patient admitted to the rehabilitation unit with debility, noncardiac, nonpulmonary, has urinary tract infection. Comorbidities of decreased mobility, obesity, pneumonia, urinary tract infection, urinary retention, hyponatremia, and atrial fibrillation on Coum bianca. Plan: 1.Continue with physical and occupational therapy for 3 hours a day, 5 of 7 days. 2.Coumadin, continue with the same dosage 4 mg daily, target INR 2.5-3.5. He also has multiple pretty rbid medications including Ultram, Flomax, spironolactone, Coreg, Cymbalta, , all continued as scheduled. Comorbidities That Are Continuing To Impact His Rehabilitation Process: The shortness of breath and requirement for oxygen and easy fatigue is slowing him down somewhat. He does have incentive spirome try and albuterol nebulizer along with ipratropium nebulizer. Those will be continued, but he is enc ouraged to use incentive spirometry aggressively to actually help him recover his endurance and stren gth. LB/MODL Voice ID: [id number] Report ID: [id number]
[2023-03-04] MEDS: GUAIFENESIN/DM 5 ML UCUP PO PRN (23:29)
[2023-03-05 04:07] LABS: Protime INR 4.22
[2023-03-05] MEDS: MAGNESIUM OXIDE 400 MG TAB PO SCH ×2 (08:01→19:53)
[2023-03-05] MEDS: FUROSEMIDE 20 MG TABLET PO SCH (08:01)
[2023-03-05] MEDS: DULOXETINE 20 MG CAP PO SCH (08:02)
[2023-03-05] MEDS: GABAPENTIN 100 MG CAP PO SCH ×2 (08:02→19:53)
[2023-03-05] MEDS: TAMSULOSIN 0.4 MG SR CAP PO SCH (08:02)
[2023-03-05] MEDS: LOPERAMIDE HCL 2 MG CAPSULE PO PRN (09:58)
[2023-03-05] MEDS: SPIRONOLACTONE 25 MG TABLET PO SCH (09:58)
[2023-03-05] MEDS: LIDOCAINE 4% PATCH TOP SCH (10:39)
[2023-03-05] MEDS: GUAIFENESIN/DM 5 ML UCUP PO PRN (10:49)
[2023-03-05] MEDS: carvediloL 3.125 MG TAB PO SCH (14:11)
[2023-03-05] MEDS: WARFARIN SODIUM 4 MG TAB PO SCH (16:02)
[2023-03-05] MEDS: VERICIGUAT 5 MG PO SCH (17:25)
[2023-03-05] MEDS: MELATONIN 5 MG TABLET PO SCH (19:53)
[2023-03-05] MEDS: [UNRECOGNIZED DRUG - REMARK] PO SCH (19:54)
[2023-03-05] MEDS: IPRATROPIUM BROM 0.5MG/2.5ML NEB PRN (21:05)
--- NOTE | 2023-03-05 23:52 | PN ---
Date of Progress Note: 03/05/2023 Time Of Service: 1:12 p.m. Subjective: Mr. Guzman is in a chair beside bed, oxygen via nasal cannula. is in the room. Zee melissa said he was slightly sleepy today, but he was working very hard earlier in the day and is, however, not able to stand at all on his own and requires a Natasha lift and 2 person for sit to stand. He is s omewhat discouraged about the slow progress in terms of recovery. Review of Systems: Again, mild shortness of breath with oxygen via nasal cannula. Does have fatigue and difficulty to t ransfer and mobilize with a walker if he has not done at all. Mild myalgias and arthralgias. No justus sea or vomiting. No rash. No depression. Physical Examination: Vital Signs: Blood pressure 128/68, pulse 77, respiratory rate 16, temperature 97.6, oxygen saturati on 95%. His oxygen is via nasal cannula. He has fair air movement bilaterally. Extremities: No significant edema. He has diffuse weakness in the lower extremity and is unable to stand on his own. Laboratory Studies: INR today is 4.22. We will hold Coumadin if INR is greater than 3.5. His INR o n the 1st was 3.78 and on the 2nd, 3.92 and today, 4.22. X-ray/imaging: None. Medications: Again, his INR is greater than 3.5 and his Coumadin which is 4 mg daily will be held to day. He continues all other medications including spironolactone, melatonin, magnesium, loperamide, ipratropium, furosemide, gabapentin, duloxetine, albuterol nebulizer, and Coreg. Current Functional Status: Today, he was able to do bed mobilization, supine to sit x2 with maximum assistance, sit to stand transfers with maximum assistance. He did attempt to stand for about 1 to 1 .5 minutes few times, required maximum assistance. He did mobilize a wheelchair 70 feet propelling b ackwards with bilateral upper and lower extremities, but often needed assistance after stopping. Wit h occupational therapy, sitting at the edge of bed, moderate assistance required; wheelchair transfer , moderate assistance required. He did sit upright in a wheelchair for about 2 hours 15 minutes. Progress Towards Rehabilitation Goals: Mr. Guzman is making slow progress towards his goals of being able to transfer from his bed to chair and mobilize a wheelchair with modified independence and begi n to ambulate even a few feet with moderate assistance to min assist. He will attempt to ambulate in the parallel bars. Otherwise, overall again slow progress towards these goals. Assessment: Mr. Guzman is an 83-year-old patient, admitted to the rehabilitation unit with debility, obesity, pneumonia, urinary tract infection, hyponatremia, and atrial fibrillation, on Coumadin. Plan: 1.Continue with physical and occupational therapy for 3 hours a day, 5 of 7 days. 2.His INR is greater than 3.5 and his Coumadin dosage will be held today. 3.He has multiple medications that are listed and he will continue those as indicated. Comorbidities That Continue To Impact Rehabilitation: Given his atrial fibrillation and his daily Co umadin and at times his INRs are above the upper limit, we will hold Coumadin so as to minimize the r isk of bleeding complications. JESSICA/MARIA DE JESUS Voice ID: [id number] Report ID: [id number]
[2023-03-06 03:55] LABS: Protime INR 2.81
[2023-03-06] MEDS: GUAIFENESIN/DM 5 ML UCUP PO PRN ×2 (04:41→12:11)
[2023-03-06] MEDS: FUROSEMIDE 20 MG TABLET PO SCH (07:08)
[2023-03-06] MEDS: MAGNESIUM OXIDE 400 MG TAB PO SCH ×2 (07:09→19:33)
[2023-03-06] MEDS: TAMSULOSIN 0.4 MG SR CAP PO SCH (07:09)
[2023-03-06] MEDS: GABAPENTIN 100 MG CAP PO SCH ×2 (07:09→19:33)
[2023-03-06] MEDS: DULOXETINE 20 MG CAP PO SCH (07:09)
[2023-03-06] MEDS: SPIRONOLACTONE 25 MG TABLET PO SCH (10:10)
[2023-03-06] MEDS: LIDOCAINE 4% PATCH TOP SCH (10:11)
[2023-03-06] MEDS: carvediloL 3.125 MG TAB PO SCH (12:11)
[2023-03-06] MEDS ORDERED: LIDOCAINE 4% PATCH TOP ONE (13:18)
[2023-03-06] MEDS: WARFARIN SODIUM 4 MG TAB PO SCH (17:17)
[2023-03-06] MEDS: VERICIGUAT 5 MG PO SCH (17:17)
[2023-03-06] MEDS: BENZONATATE 100 MG CAP PO PRN (19:33)
[2023-03-06] MEDS: MELATONIN 5 MG TABLET PO SCH (19:33)
[2023-03-06] MEDS: [UNRECOGNIZED DRUG - REMARK] PO SCH (19:34)
[2023-03-07] MEDS: GUAIFENESIN/DM 5 ML UCUP PO PRN ×3 (02:35→19:58)
[2023-03-07 03:44] LABS: Absolute Lymphocytes (CBC) 1.8 K/uL (0.7-4.9); Hematocrit 35.2 % (39.6-49.0); Lymphocytes % 25.4 % (15.3-44.8); MCV 94.6 fL (80-100); Platelets 270 thou/uL (152-406); RBC Red Blood Cell Count 3.73 M/uL (4.33-5.43)
[2023-03-07 03:45] LABS: Protime INR 2.59
[2023-03-07 04:05] LABS: Albumin 2.7 g/dL (3.4-5.0); Magnesium 2.2 mg/dL (1.6-2.4); Prealbumin 12.5 mg/dL (20-40)
[2023-03-07] MEDS: TAMSULOSIN 0.4 MG SR CAP PO SCH (07:11)
[2023-03-07] MEDS: FUROSEMIDE 20 MG TABLET PO SCH (07:11)
[2023-03-07] MEDS: GABAPENTIN 100 MG CAP PO SCH ×2 (07:11→19:58)
[2023-03-07] MEDS: MAGNESIUM OXIDE 400 MG TAB PO SCH ×2 (07:11→19:58)
[2023-03-07] MEDS: DULOXETINE 20 MG CAP PO SCH (07:11)
[2023-03-07] MEDS: SPIRONOLACTONE 25 MG TABLET PO SCH (09:36)
[2023-03-07] MEDS: LIDOCAINE 4% PATCH TOP SCH (09:37)
[2023-03-07] MEDS: carvediloL 3.125 MG TAB PO SCH (12:23)
--- NOTE | 2023-03-07 16:35 | PN ---
Date of Progress Note: 03/07/2023 Time Of Service: 11:00 a.m. Subjective: Mr. Guzman is in the gym. He is in the Natasha lift. He was able to stand with the assist ance of the lift and he took 8 steps while in the Natasha lift. He did indicate he was feeling very fat igued at that point and was ready to sit down. He is making slow progress and is somewhat worried ab out the rate of his recovery. Review of Systems: Mild shortness of breath. His oxygen saturation at night apparently had dropped to 89, when the oxyg en sounds 2 L. It was put back up to about 3 and it returned to around 94. Again, more fatigue as h e ambulates or tries to ambulate and only is able to do so with the assistance of a Natasha lift. He luis s mild myalgias and arthralgias. No nausea, vomiting. No rash. Physical Examination: Vital Signs: Blood pressure 129/74, pulse of 76, respiratory rate of 16, temperature 97.1, oxygen sa turation 93%. General: Mr. Guzman is noted is sitting now in the chair in the gym. HEENT: He is normocephalic, atraumatic. He does have obese body habitus. He has mildly decreased b reath sounds, possibly from the shallow breathing and no significant edema in the extremities. He luis s diffuse weakness in upper and lower extremities. Laboratory Studies: White blood cell count 7.3, hemoglobin 11.9, platelets 270. Today, his INR is 2 .59. Sodium 131, chloride 92, potassium 4, BUN 21, creatinine 0.87. Prealbumin 12.5, albumin 2.7. Glucose 121. His sodium and chloride being a low, he was put on sodium chloride tablets 1 g twice da natalia. X-ray/imaging: No new x-rays or imaging. Medications: As noted. Sodium chloride 1 g twice daily was added and the rest of his medication reg imen was reviewed and continued. He will be on the Coumadin 4 mg daily, which he will continue. Current Functional Status: Today, he was able to sit at edge of bed with maximum assistance and mode rate assistance required for squat pivot transfer. Grooming was independent. Once he is able to get towards the sink, he did complete oral care and shaved with a razor. With physical therapy, he did complete exercise while on bed, 2 sets of 20 reps of heel strikes, hip and heel flexion and extension , and hip abduction. He did mobilize a wheelchair 80 feet twice with contact guard assistance with b ilateral upper extremities. He was able to user interface developer a Natasha lift for 5 minutes on multiple occasions. Progress Towards Rehabilitation Goals: Mr. Guzman overall is slowly making progress towards his goal s of being able to transfer from the bed and mobilize in a wheelchair to dress upper and lower body w ith modified independence. He is, however, a long way from that at this point. He is only able to s tand with the assistance of a Natasha lift or 2 people. Assessment: Mr. Guzman is an 83-year-old patient with significant debility; obesity; pneumonia; urin e tract infection; hyponatremia; and atrial fibrillation, on Coumadin. Plan: 1.Again, continue physical and occupational therapy for 3 hours a day, 5/7 days. 2.Sodium chloride 1 g twice daily. 3.Coumadin 4 mg daily and may decrease to 3.5 mg daily if his INR increases above 3.5. 4.His comorbid condition medications will be continued. Comorbidities That Continue To Impact Rehabilitation: Currently, his hyponatremia is actually low ag ain. It had been normal at last blood check. He will have the sodium chloride replaced. In [facility], he is significantly debilitated and is making very slow progress with recovery and so that is the limiting factor and will likely require much longer than the time available to him in acute rehab for him to recover and do well. LB/MODL Voice ID: [id number] Report ID: [id number]
[2023-03-07] MEDS: SODIUM CHLORIDE 1 GM TAB PO SCH (16:42)
[2023-03-07] MEDS: VERICIGUAT 5 MG PO SCH (16:42)
[2023-03-07] MEDS: WARFARIN SODIUM 4 MG TAB PO SCH (16:42)
[2023-03-07] MEDS: [UNRECOGNIZED DRUG - REMARK] PO SCH (19:58)
[2023-03-07] MEDS: MELATONIN 5 MG TABLET PO SCH (19:58)
[2023-03-07] MEDS: IPRATROPIUM BROM 0.5MG/2.5ML NEB PRN (20:25)
[2023-03-08 04:22] LABS: Protime INR 3.2
[2023-03-08] MEDS: LIDOCAINE 4% PATCH TOP SCH (07:33)
[2023-03-08] MEDS: FUROSEMIDE 20 MG TABLET PO SCH (07:35)
[2023-03-08] MEDS: TAMSULOSIN 0.4 MG SR CAP PO SCH (07:35)
[2023-03-08] MEDS: DULOXETINE 20 MG CAP PO SCH (07:36)
[2023-03-08] MEDS: MAGNESIUM OXIDE 400 MG TAB PO SCH ×2 (07:36→19:19)
[2023-03-08] MEDS: SODIUM CHLORIDE 1 GM TAB PO SCH ×2 (07:36→16:48)
[2023-03-08] MEDS: GABAPENTIN 100 MG CAP PO SCH ×2 (07:36→19:19)
[2023-03-08] MEDS: SPIRONOLACTONE 25 MG TABLET PO SCH (09:20)
[2023-03-08] MEDS ORDERED: ONDANSETRON 4 MG (ODT) TAB PO PRN (09:59)
[2023-03-08] MEDS: carvediloL 3.125 MG TAB PO SCH (13:20)
--- NOTE | 2023-03-08 13:45 | P.RH.PN ---
Estimated Length of Stay: 15 Expected Discharge Date: 03/14/23 Discharge Disposition Plan: Home Family Support: Yes Correction Goal: Mobility, Transfers, Self Care Vital Signs: Last Vital Signs Temp 97.2 F 03/08/23 08:00 Pulse 76 03/08/23 13:20 Resp 19 03/08/23 08:00 BP 117/60 03/08/23 13:20 Pulse Ox 93 03/08/23 08:00 Laboratory: Laboratory Last Values WBC 7.30 thou/uL (4.3-10.9) 03/07/23 03:26 RBC 3.73 M/uL (4.33-5.43) L 03/07/23 03:26 Hgb 11.9 g/dL (13.6-17.9) L 03/07/23 03:26 Hct 35.2 % (39.6-49.0) L 03/07/23 03:26 MCV 94.6 fL (80-100) 03/07/23 03:26 MCH 31.9 pg (27.0-35.0) 03/07/23 03:26 MCHC 33.8 g/dL (32.0-36.0) 03/07/23 03:26 RDW 13.7 % (12.1-15.2) 03/07/23 03:26 Plt Count 270 thou/uL (152-406) 03/07/23 03:26 MPV 8.0 fL (7.6-11.3) 03/07/23 03:26 Neutrophils % 51.6 % (41.7-73.7) 03/07/23 03:26 Lymphocytes % 25.4 % (15.3-44.8) 03/07/23 03:26 Monocytes % 10.6 % (3.3-12.3) 03/07/23 03:26 Eosinophils % 11.7 % (0-4.4) H 03/07/23 03:26 Basophils % 0.7 % (0-1.3) 03/07/23 03:26 Absolute Neutrophils 3.8 K/uL (1.8-8.0) 03/07/23 03:26 Absolute Lymphocytes 1.8 K/uL (0.7-4.9) 03/07/23 03:26 Absolute Monocytes 0.8 K/uL (0.1-1.3) 03/07/23 03:26 Absolute Eosinophils 0.8 K/uL (0-0.5) H 03/07/23 03:26 Absolute Basophils 0.0 K/uL (0-0.5) 03/07/23 03:26 PT 35.2 SECONDS (9.5-12.5) H 03/08/23 03:46 INR 3.20 03/08/23 03:46 Sodium 131 mEq/L (136-145) L 03/07/23 03:26 Potassium 4.0 mEq/L (3.5-5.1) 03/07/23 03:26 Chloride 92 mEq/L (98-107) L 03/07/23 03:26 Carbon Dioxide 38 mEq/L (21-32) H 03/07/23 03:26 Anion Gap 5.0 mEq/L (5.0-15.0) 03/07/23 03:26 BUN 21 mg/dL (7-18) H 03/07/23 03:26 Creatinine 0.87 mg/dL (0.70-1.30) 03/07/23 03:26 Est GFR (CKD-EPI) 86 ml/min (=/>90) L 03/07/23 03:26 Glucose 121 mg/dL (74-106) H 03/07/23 03:26 Calcium 9.3 mg/dL (8.5-10.1) 03/07/23 03:26 Magnesium 2.2 mg/dL (1.6-2.4) 03/07/23 03:26 Albumin 2.7 g/dL (3.4-5.0) L 03/07/23 03:26 Prealbumin 12.5 mg/dL (20-40) L 03/07/23 03:26 Urine Color Light-yellow (Yellow) 03/01/23 04:50 Urine Clarity Clear (Clear) 03/01/23 04:50 Urine pH 7.0 (5.0-7.0) 03/01/23 04:50 Ur Specific [place] 1.010 (1.005-1.030) 03/01/23 04:50 Glucose (UA)(Auto) Negative (Negative) 03/01/23 04:50 Urine Ketones Negative (Negative) 03/01/23 04:50 Urine Blood Negative (Negative) 03/01/23 04:50 Urine Nitrite Negative (Negative) 03/01/23 04:50 Urine Bilirubin Negative (Negative) 03/01/23 04:50 Urine Urobilinogen Normal (Normal) 03/01/23 04:50 Ur Leukocyte Esterase Negative Pattie/uL (Negative) 03/01/23 04:50 Urine RBC <5 /HPF (None Seen) 03/01/23 04:50 Urine WBC <5 /HPF (<5) 03/01/23 04:50 Ur Squamous Epith Cells None seen /HPF (None Seen) 03/01/23 04:50 Urine Bacteria <20 /HPF (<20) 03/01/23 04:50 Urine Culture Reflexed Not needed 03/01/23 04:50 Urine Total Protein Negative (Negative) 03/01/23 04:50 Weight: 240 lb Wound Present: No Negative Pressure Wound Therapy Present: No Physician Update: Labs reviewed and are stable. INR is therapeutic. His prealbumin is low at 12. Will start glucerna 237 mg twice daily. He is making fair overall progress. BIMS is 11 but he refuses to work with speech. Max assistance for all ADL and mobilization. Summary: Patient's care plan and custodial goals have been reviewed and revised as necessary. Please see the Rehabilitation Signature page for all necessary signatures.
[2023-03-08 15:06] LABS: Arterial Blood Carboxyhemoglob 1.1 % (0-1.5); Blood Gas Oxyhemoglobin 92.2 % (94-97); Blood O2 Saturation 94.5 % (92-98.5)
[2023-03-08] MEDS: VERICIGUAT 5 MG PO SCH (16:48)
[2023-03-08] MEDS: WARFARIN SODIUM 4 MG TAB PO SCH (16:49)
[2023-03-08] MEDS: [UNRECOGNIZED DRUG - REMARK] PO SCH (19:19)
[2023-03-08] MEDS: MELATONIN 5 MG TABLET PO SCH (19:19)
[2023-03-09] MEDS: TAMSULOSIN 0.4 MG SR CAP PO SCH (07:41)
[2023-03-09] MEDS: SODIUM CHLORIDE 1 GM TAB PO SCH ×2 (07:41→16:35)
[2023-03-09] MEDS: LIDOCAINE 4% PATCH TOP SCH (07:41)
[2023-03-09] MEDS: MAGNESIUM OXIDE 400 MG TAB PO SCH ×2 (07:43→19:07)
[2023-03-09] MEDS: DULOXETINE 20 MG CAP PO SCH (07:43)
[2023-03-09] MEDS: FUROSEMIDE 20 MG TABLET PO SCH (07:43)
[2023-03-09] MEDS: GABAPENTIN 100 MG CAP PO SCH ×2 (07:43→19:07)
[2023-03-09 08:01] LABS: Protime INR 2.69
[2023-03-09] MEDS: SPIRONOLACTONE 25 MG TABLET PO SCH (09:25)
[2023-03-09] MEDS: carvediloL 3.125 MG TAB PO SCH (13:36)
[2023-03-09] MEDS: VERICIGUAT 5 MG PO SCH (16:35)
[2023-03-09] MEDS: WARFARIN SODIUM 4 MG TAB PO SCH (16:35)
[2023-03-09] MEDS: MELATONIN 5 MG TABLET PO SCH (19:07)
[2023-03-09] MEDS: [UNRECOGNIZED DRUG - REMARK] PO SCH (19:08)
[2023-03-10 06:01] LABS: Protime INR 2.25
[2023-03-10] MEDS: NYSTATIN PWDR 100000 UNIT/GM TOP SCH ×2 (08:00→21:35)
[2023-03-10] MEDS: TAMSULOSIN 0.4 MG SR CAP PO SCH (09:00)
[2023-03-10] MEDS: DULOXETINE 20 MG CAP PO SCH (09:00)
[2023-03-10] MEDS: SPIRONOLACTONE 25 MG TABLET PO SCH (09:00)
[2023-03-10] MEDS: LIDOCAINE 4% PATCH TOP SCH (09:00)
[2023-03-10] MEDS: FUROSEMIDE 20 MG TABLET PO SCH (09:00)
[2023-03-10] MEDS: SODIUM CHLORIDE 1 GM TAB PO SCH ×2 (09:00→17:11)
[2023-03-10] MEDS: MAGNESIUM OXIDE 400 MG TAB PO SCH ×2 (09:00→21:33)
[2023-03-10] MEDS: GABAPENTIN 100 MG CAP PO SCH ×2 (09:00→21:33)
[2023-03-10] MEDS: carvediloL 3.125 MG TAB PO SCH (12:52)
[2023-03-10] MEDS: VERICIGUAT 5 MG PO SCH (17:11)
[2023-03-10] MEDS: WARFARIN SODIUM 5 MG TAB PO SCH (17:43)
[2023-03-10] MEDS: [UNRECOGNIZED DRUG - REMARK] PO SCH (21:00)
[2023-03-10] MEDS: MELATONIN 5 MG TABLET PO SCH (21:34)
[2023-03-11 04:52] LABS: Protime INR 2.55
[2023-03-11 05:05] LABS: Potassium 4.1 mEq/L (3.5-5.1)
[2023-03-11] MEDS: GABAPENTIN 100 MG CAP PO SCH ×2 (07:37→20:28)
[2023-03-11] MEDS: FUROSEMIDE 20 MG TABLET PO SCH (07:37)
[2023-03-11] MEDS: SODIUM CHLORIDE 1 GM TAB PO SCH ×2 (07:37→16:46)
[2023-03-11] MEDS: NYSTATIN PWDR 100000 UNIT/GM TOP SCH ×2 (07:37→20:28)
[2023-03-11] MEDS: MAGNESIUM OXIDE 400 MG TAB PO SCH ×2 (07:37→20:28)
[2023-03-11] MEDS: DULOXETINE 20 MG CAP PO SCH (07:38)
[2023-03-11] MEDS: TAMSULOSIN 0.4 MG SR CAP PO SCH (07:38)
[2023-03-11] MEDS: SPIRONOLACTONE 25 MG TABLET PO SCH (10:25)
[2023-03-11] MEDS: LIDOCAINE 4% PATCH TOP SCH (10:26)
[2023-03-11] MEDS: carvediloL 3.125 MG TAB PO SCH (12:46)
[2023-03-11] MEDS: VERICIGUAT 5 MG PO SCH (16:46)
[2023-03-11] MEDS: WARFARIN SODIUM 5 MG TAB PO SCH (16:46)
[2023-03-11] MEDS: MELATONIN 5 MG TABLET PO SCH (20:28)
[2023-03-11] MEDS: [UNRECOGNIZED DRUG - REMARK] PO SCH (20:38)
--- NOTE | 2023-03-12 01:50 | PN ---
Date of Progress Note: 03/11/2023 Time Of Service: 1 p.m. Subjective: Mr. Guzman is in his bed waiting for therapy session. His chief complaint today is that he wants a regular diet. He wants a cake, cookies, and ice cream and he says he is on a heart healt hy diet and his brings him food and he is going to eat whatever she brings. His diet was actual ly changed and after a long discussion, the patient still refuses to have a heart healthy diet. Review of Systems: His shortness of breath is noted with easy fatigue, unable to stand and ambulate any distances, some myalgias, arthralgias. No rash. No headache and no other systems review positives. Physical Examination: Vital Signs: Blood pressure 113/68, pulse of 69, respiratory rate 16, temperature 97.2, oxygen satur ation 98% on room air, weight 240 pounds, height 5 feet 9 inches, BMI 35.4. General: Mr. Guzman is resting in bed. He is in no significant distress. HEENT: He is normocephalic, atraumatic. Sclerae anicteric. Abdomen: Obese. Extremities: Show no significant edema, cyanosis. He has diffuse weakness in upper and lower extrem ities. Unable to stand for any length of time. He is to be assisted up, able to Natasha lift or 2 peop le. Laboratory Studies: He had an arterial blood gas done on 03/08/2023, after he was somewhat confused, disoriented, worrying bout CO2 narcosis. The study did show elevated pCO2 of 69 and O2 was 81.2 con sistent with CO2 retention. His INR is 2.55 today. His sodium is 133, potassium 4.1, chloride 95, c arbon dioxide 39, BUN of 20, and creatinine 0.9, glucose 116, calcium 9.1. X-ray Imaging: No new x-rays or imaging. Medications: His medications have been reviewed and remained unchanged except his Coumadin is now 5 mg daily instead of 4 mg daily. Current Functional Status: Today, he did mobilize wheelchair 75 feet twice with standby assistance. Supine to sit with moderate assistance. [id number] with maximal assistance. Bed to wheelchair mo bilization with moderate assistance. He is not ambulating and most attempts to stand resulting in hi m failing to get all the way into an upright position. With occupational therapy, shower transfers w ere completely dependent, maximum assistance required 2 persons for the squatting and pivot, 2 person s for him to stoop from the bed. Grooming is independent, upper body dressing minimum assistance. Progress Towards Rehabilitation Goals: Mr. Guzman is making very slow progress with any form of callie ding or ambulation, better progress with mobilizing the wheelchair, slow progress with all his transf ers. His ability to shower is also at total assistance at this point. Assessment: Mr. Guzman is an 83-year-old patient in the rehabilitation unit with significant debilit y and obesity, pneumonia, urine tract infection, hyponatremia, atrial fibrillation, on Coumadin. He is making again very slow progress with all therapy. Plan: 1.Continue physical, occupational therapy for 3 hours a day, 5/7 days. 2.Continue all comorbid conditions including his Coumadin now at 5 mg daily. Comorbidities That Continue To Impact Rehabilitation: He has significant fatigue and inability to ma ke any headway with his ambulation, make it difficult for him to go back to a situation where he will be independent. He will likely need a much more protracted stay with aggressive rehabilitation to b e able to return to his level of functioning, which was reportedly independent over a month ago. At this point, [facility] facility may be the appropriate discharge. LISSET Voice ID: [id number] Report ID: [id number]
[2023-03-12 04:59] LABS: Protime INR 3.79
[2023-03-12] MEDS: SODIUM CHLORIDE 1 GM TAB PO SCH ×2 (07:18→17:06)
[2023-03-12] MEDS: TAMSULOSIN 0.4 MG SR CAP PO SCH (07:18)
[2023-03-12] MEDS: NYSTATIN PWDR 100000 UNIT/GM TOP SCH ×2 (07:18→19:46)
[2023-03-12] MEDS: MAGNESIUM OXIDE 400 MG TAB PO SCH ×2 (07:19→19:46)
[2023-03-12] MEDS: LIDOCAINE 4% PATCH TOP SCH (07:19)
[2023-03-12] MEDS: FUROSEMIDE 20 MG TABLET PO SCH (07:19)
[2023-03-12] MEDS: DULOXETINE 20 MG CAP PO SCH (07:19)
[2023-03-12] MEDS: GABAPENTIN 100 MG CAP PO SCH ×2 (07:19→19:46)
[2023-03-12] MEDS: SPIRONOLACTONE 25 MG TABLET PO SCH (09:41)
[2023-03-12] MEDS: carvediloL 3.125 MG TAB PO SCH (13:20)
[2023-03-12] MEDS: VERICIGUAT 5 MG PO SCH ×2 (17:00→17:11)
[2023-03-12] MEDS: [UNRECOGNIZED DRUG - REMARK] PO SCH (19:47)
[2023-03-12] MEDS: MELATONIN 5 MG TABLET PO SCH (19:47)
--- NOTE | 2023-03-12 19:54 | PN ---
Date of Progress Note: 03/12/2023 Time Of Service: 1:10 p.m. Subjective: Mr. Guzman is resting in bed. He says that he is not eating Hospital food. He wants fo od from home. He wants cake cookies and ice cream. His did bring him some food. He refuses to eat a heart healthy diet. He has no additional complaints. Review of Systems: He still has ongoing fatigue, shortness of breath, difficulty to do any standing for any measure of t he time and has mild myalgias, arthralgias, but no psychiatric complaints. No headache. Physical Examination: Vital Signs: Blood pressure 156/59, pulse of 74, respiratory rate of 16, temperature 97.4, oxygen sa turation 96% on 2 L of oxygen. General: Mr. Guzman is in bed, does not appear to be in any acute distress. HEENT: He is normocephalic, atraumatic. Sclerae anicteric. Fair air movement bilaterally. Abdomen: Obese. Extremities: Trace edema in extremities. Neurological: Very diffusely weak in the lower extremitie s greater than upper extremities and is unable to stand on his own. Laboratory Studies: No new laboratory studies except INR today is elevated at 3.79. We will hold th e Coumadin because INR is greater than 3.5. May go back to 4.5 mg of Coumadin daily. X-ray/imaging: No new x-rays or imaging. Medications: Again Coumadin will be adjusted to 4.5 mg daily from 5 mg daily. His additional medica tions were reviewed and will continue unchanged. Current Functional Status: Today, Mr. Guzman did perform multiple supine to sit transfers with moder ate assistance. His bed to wheelchair transfers done with moderate assistance. Hvo-sj-aeral done wi th maximum assistance. He did mobilize a wheelchair 125 feet with standby assistance. His occupatio nal therapy maximum assistance for supine to sit and wheelchair transfer as well. Did tolerate 5 min utes of upper extremity aerobic exercise while sitting in a wheelchair. Progress Towards Rehabilitation Goals: Mr. Guzman is making very slow progress towards his goals of ambulating, which he is currently not doing. That is with a rolling walker. He is mobilizing better with a wheelchair, but still requires significant help. Upper and lower body dressing still require d significant help. For his transfers maximum assist or moderate assistance level required. Assessment: Mr. Guzman is an 83-year-old patient in the rehabilitation unit with significant debilit y, obesity, pneumonia, urinary tract infection, hyponatremia, atrial fibrillation, on Coumadin, which has slightly made his INR a little elevated and has just been adjusted. Again, very slow progress a t all therapy and the patient does not want to change his diet or participate at a more intense level . Plan: 1.Continue with physical and occupational therapy 3 hours a day, 5 of 7 days. 2.The patient's comorbid condition medications are continued. Coumadin again has been adjusted from 5 mg daily to 4.5 mg daily. 3.At the patient's rate, he will have to go to [facility] as he is unable to go home and his wi fe is very frail and unable to manage him if he were to fall as he is unable to do any significant st anding on his own. He would require 2 persons or a lift to get him out of bed or out of a chair. Comorbidities That Continue To Impact His Rehabilitation: 1.At this point, his INR is slightly elevated. Coumadin will be held and dosage decreased. 2.He is still significantly debilitated despite many attempts by the physical therapist to help impr ove his ability to mobilize and transfer. He is making extremely slow progress there and again will have to go to skilled. JESSICA/MARIA DE JESUS Voice ID: [id number] Report ID: [id number]
[2023-03-13 04:23] LABS: Protime INR 3.67
[2023-03-13 04:35] LABS: Potassium 3.7 mEq/L (3.5-5.1)
[2023-03-13] MEDS: FUROSEMIDE 20 MG TABLET PO SCH (07:49)
[2023-03-13] MEDS: SODIUM CHLORIDE 1 GM TAB PO SCH ×2 (07:50→17:04)
[2023-03-13] MEDS: NYSTATIN PWDR 100000 UNIT/GM TOP SCH ×2 (07:50→19:07)
[2023-03-13] MEDS: DULOXETINE 20 MG CAP PO SCH (07:50)
[2023-03-13] MEDS: TAMSULOSIN 0.4 MG SR CAP PO SCH (07:50)
[2023-03-13] MEDS: GABAPENTIN 100 MG CAP PO SCH ×2 (07:50→19:06)
[2023-03-13] MEDS: MAGNESIUM OXIDE 400 MG TAB PO SCH ×2 (07:52→19:06)
[2023-03-13] MEDS: SPIRONOLACTONE 25 MG TABLET PO SCH (10:19)
[2023-03-13] MEDS: LIDOCAINE 4% PATCH TOP SCH (10:22)
[2023-03-13] MEDS: carvediloL 3.125 MG TAB PO SCH (13:00)
[2023-03-13] MEDS ORDERED: WARFARIN SODIUM 2.5 MG TAB PO SCH ×3 (17:00)
[2023-03-13] MEDS ORDERED: WARFARIN SODIUM 2 MG TAB PO SCH ×3 (17:00)
[2023-03-13] MEDS: VERICIGUAT 5 MG PO SCH (17:04)
[2023-03-13] MEDS: MELATONIN 5 MG TABLET PO SCH (19:06)
[2023-03-13] MEDS: [UNRECOGNIZED DRUG - REMARK] PO SCH (19:07)
[2023-03-13 20:01] VITALS: TEMP 97.4
[2023-03-13 23:23] VITALS: O2SAT 96
[2023-03-14 03:54] LABS: Protime INR 2.79
[2023-03-14 03:55] LABS: Hematocrit 32.6 % (39.6-49.0); Lymphocytes % 25.8 % (15.3-44.8); MCV 94.9 fL (80-100); Platelets 295 thou/uL (152-406); RBC Red Blood Cell Count 3.44 M/uL (4.33-5.43)
[2023-03-14 04:12] LABS: Albumin 2.5 g/dL (3.4-5.0); Magnesium 2.2 mg/dL (1.6-2.4); Potassium 3.5 mEq/L (3.5-5.1); Prealbumin 12.2 mg/dL (20-40)
[2023-03-14] MEDS: TAMSULOSIN 0.4 MG SR CAP PO SCH (07:28)
[2023-03-14] MEDS: NYSTATIN PWDR 100000 UNIT/GM TOP SCH (07:28)
[2023-03-14] MEDS: LIDOCAINE 4% PATCH TOP SCH (07:28)
[2023-03-14] MEDS: MAGNESIUM OXIDE 400 MG TAB PO SCH (07:29)
[2023-03-14] MEDS: DULOXETINE 20 MG CAP PO SCH (07:29)
[2023-03-14] MEDS: FUROSEMIDE 20 MG TABLET PO SCH (07:29)
[2023-03-14] MEDS: SODIUM CHLORIDE 1 GM TAB PO SCH (07:29)
[2023-03-14] MEDS: GABAPENTIN 100 MG CAP PO SCH (07:29)
[2023-03-14] MEDS: SPIRONOLACTONE 25 MG TABLET PO SCH (08:57)
[2023-03-14 13:13] VITALS: BP 118/59
[2023-03-14] MEDS: carvediloL 3.125 MG TAB PO SCH (13:13)
== END 2023-03-14 13:50 | DRG 947 ==
LOC: 5TH 21:40
PROVIDERS: ADMIT Psychiatry & Neurology Neurology with Special Qualifications in Child Neurology; ATTEND Psychiatry & Neurology Neurology with Special Qualifications in Child Neurology
DX: R53.81 Other malaise (principal); J18.9 Pneumonia, unspecified organism; N39.0 Urinary tract infection, site not specified; E87.1 Hypo-osmolality and hyponatremia; M48.00 Spinal stenosis, site unspecified; E87.6 Hypokalemia; E83.51 Hypocalcemia; I10 Essential (primary) hypertension; G47.33 Obstructive sleep apnea (adult) (pediatric); I50.9 Heart failure, unspecified; I48.91 Unspecified atrial fibrillation; K59.00 Constipation, unspecified; R33.9 Retention of urine, unspecified; Z66 Do not resuscitate; M79.10 Myalgia, unspecified site; M25.50 Pain in unspecified joint; Z79.01 Long term (current) use of anticoagulants
CPT/HCPCS: 36415; 36600; 80048; 81001; 82040; 82805; 83735; 84134; 85025; 85610; 87086; 87088; 94010; 94660; 94760; 97010; 97110; 97116; 97124; 97163; 97165; 97530; 97542; J2001; J7613; J7644; Q0162

== ENCOUNTER 2023-03-30 20:51 | Emergency (ER) | payer OTHER ==
--- OUTSIDE RECORDS SUMMARY | 2023-03-30 20:56 | XMS REPORT | Continuity of Care Document ---
:1940 Author Organization [facility] t Address [address] [place] [address] [address] [place] [address] Care Team Providers Name Role Phone CASA BRANNONVALERY Tsai Primary Care Physician Unavailable Kim Flores Attending Clinician Unavailable TODD HUERTA Attending Clinician Unavailable DEVANG OLIVAS Attending Clinician Unavailable Shirley Arambula Attending Clinician Devang Olivas MD Attending Clinician SHIRLEY GAINES Attending Clinician Unavailable Doctor Unassigned, [place] Attending Clinician Unavailable SARAH SAL Attending Clinician Unavailable Genna Rosales Attending Clinician Nurse, [facility] Surgery Gu Attending Clinician Unavailable Sarah Dunbar Attending Clinician Stewart Kurtz MD Attending Clinician GENNA SORIA Attending Clinician Unavailable Leelee Chand LCSW Attending Clinician KHARI FLORES Attending Clinician Unavailable Todd Huerta MD Attending Clinician Only, Adc Test Attending Clinician Unavailable Pob, [facility] Lab Main Attending Clinician Unavailable TODD HUERTA Admitting Clinician Unavailable Todd Huerta MD Admitting Clinician Payers Payer Name Policy Type Policy Effective Date Expiration Date Sour ce Number MEDICARE PART A [id number] 2006 \T\ B 00:00:00 AGENCY GENERIC [id number] 2006 00:00:00 COMMERCIAL [id number] 2006 NON-CONTRACT 00:00:00 GENERIC SECURE HORIZONS 53 [id number] Common Sp leonela - [facility] [id number] 2020 GENERIC 00:00:00 Problems Condition Condition Condition Status Onset Resolution Last Treating Co mments Source Name Details Category Date Date Treatment Clinician Date Acute Acute Disease Active 2021-06 Univers combined combined 04 ity of systolic systolic 00:00: [place] and and 00 Medical 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 Chronic Chronic Disease Active 2021-06 Univers respirator respirator 1-04 [place] Edema Edema Disease Active 2021-06 Univers 1-04 ity of 00:00: [place] 00 Medical Branch History of History of Disease Active 2021-06 U nivers fall fall -04 ity of 00:00: [place] 00 Medical Branch 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 104 ity of hypertensi [place]ens[place] Hyperlipid Hyperlipid Disease Active 2021-06 U nivers emia emia 04 ity of 00:00: [place] 00 Medical Branch Hypertensi Hypertensi Disease Active 2021-06 U nivers ve heart ve heart 1-04 ity of disease disease 00:00: [place] with heart with heart 00 Me dical failure failure Branch Obesity Obesity Disease Active 2021-06 Univers 1-04 ity of 00:00: [place] 00 Medical Branch Late Late Disease Active 2021-06 Univers effect of effect of 104 ity of fracture fracture 00:00: [place] of lower of lower 00 Medica l extremitie extremitie Br anch s s Ischemic Ischemic Disease Active 2021-06 Unive rs heart heart 1-04 ity of disease disease 00:00: Medical Branch [...] rs active active ity of problems problems [facility] Branch [id number] Primary Problem Comm on osteoarthr Spirit is [facility] right [facility] [id number] Primary Problem Comm on osteoarthr Spirit [facility] left [facility] [id number] History of Problem Co mmon prostate [facility] cancer [facility] Prostate Prostate Problem Commo n cancer cancer [facility] Allergies, Adverse Reactions, Alerts Allergy Allergy Status Severity Reaction(s) Onset Inactive Treating Comm ents Source Name Type Date Date Clinician LEVOFLOX DRUG Active Unknown-Cmnt Un trupti ACIN INGREDI 9- ity of 00:00: Medical Branch LISINOPR DRUG Active COUGH Univers [place] INGREDI 02-15 ity of 00:00: Medical Branch Levoflox Propensi [...] Spirit / / - [facility]I trimetho trimetho [facility] Substanc Substanc Active Unknown Commo n e with e with Spirit sulfonam sulfonam - [facility]I linda linda [facility] e and e and Medical antibact antibact Center erial erial mechanis mechanis m of m of action action (substan (substan ce) ce) Social History Social Habit Start Date Stop Date Quantity Comments Source Gender identity Universit y [facility] Sexual orientation Univer sity [facility] History of Tobacco Common Spirit - Use [facility] Sex Assigned At Common Sp leonela - [facility] Exposure to 2022-03-25 2022-04-04 Not sure University SARS-CoV-2 (event) 00:00:00 10:58:00 [facility] History of Social 2022-02-15 2022-02-15 Univers ity of function 00:00:00 00:00:00 [facility] Tobacco use and 2022-02-15 2022-02-15 Smokeless Universit y of exposure 00:00:00 00:00:00 tobacco non-user [facility] Smoking Status Start Date Stop Date Source Never Smoker [facility] - [facility] Ex-smoker 2022-02-15 00:00:00 2022-02-15 00:00:00 Universi ty [facility] Medications Ordered Filled Start Stop Current Ordering Indication Dosage Frequency Signature Comments Components Source Medication Medication Date Date Medication? Clinician (SIG) Name Name traMADol traMADol No 1{table traMADol HCl 50 MG HCl 50 MG 1-30 t_as_ne HCl 50 MG 00:00: eded} 00 Bupivicaine Bupivicaine No 2.5mg Common Stanley Stanley 1-30 Spirit 00:00: - [facility] 00 [facility] Bupivicaine Bupivicaine No 2.5mg Common Stanley Stanley 1-30 Spirit 00:00: - [facility] 00 [facility] Kenalog Kenalog No 40mg Common (Triamcinol (Triamcinol 1-30 S pirit one) one) 00:00: - [facility] 00 [facility] Kenalog Kenalog No 40mg Common (Triamcinol (Triamcinol 1-30 S pirit one) one) 00:00: - [facility] cephALEXin 2021-06- No [id number] 500mg Take 1 Univers (KEFLEX) 1- 11-15 capsule by ity of 500 mg 00:00: 05:59 mouth in [place] capsule 00 :00 the Medical morning Branch and 1 capsule in the evening. Do all this for 7 days. gentamicin 2021- No [id number] 80mg U nivers injection 02-15 ity of 80 mg 22:15: 21:15 [place] 00 :00 Medical Branch gentamicin 2021- No [id number] 80mg 80 mg, Univers injection 02-15 Intramuscu ity of 80 mg 22:15: 21:15 lar, ONCE, [place] 00 :00 1 dose, On Medical Raisa [...] by mouth ity of tablet 16:25: daily. [address] spironolact 2020-06 Yes 25mg Take 25 mg Univers one 25 mg 0-25 by mouth ity of tablet 16:25: daily. [address] BENZONATATE 2020-06 Yes Take by Uni vers ORAL 0-25 mouth. ity of 16:25: [address] tamsulosin 2020-06 Yes Take by Univ ers (FLOMAX) 0-25 mouth ity of 0.4 mg 24 16:25: daily. [facility] [place] [facility] capsule [address] [place] [address] finasteride 2020-06 Yes 5mg Take 5 mg U nivers 5 mg tablet 0-25 by mouth ity of 16:25: daily. [address] furosemide 2020-06 Yes 80mg Take 80 mg U nivers (LASIX) 80 0-25 by mouth ity o f mg tablet 16:25: every [place] [address] morning Medical and Branch evening. carvediloL 2020-06 Yes 12.5mg Take 12.5 Univers (COREG) 0-25 mg by ity of 12.5 mg 16:25: mouth 2 [place] tablet 35 (two) Medical times Branch daily with meals. predniSONE 2020-06 Yes 10mg Take 10 mg U nivers 10 mg 0-25 by mouth ity of tablet 16:25: daily. [address] spironolact 2020-06 Yes 25mg Take 25 mg Univers one 25 mg 0-25 by mouth ity of tablet 16:25: daily. [address] BENZONATATE 2020-06 Yes Take by Uni vers ORAL 0-25 mouth. ity of 16:25: [address] tamsulosin 2020-06 Yes Take by [place] [facility] ers (FLOMAX) 0-25 mouth ity of 0.4 mg 24 16:25: daily. [facility] [place] [facility] capsule [address] [place] [address] finasteride 2020-06 Yes 5mg Take 5 mg U nivers 5 mg tablet 0-25 by mouth ity of 16:25: daily. [address] furosemide 2020-06 Yes 80mg Take 80 mg U nivers (LASIX) 80 0-25 by mouth ity o f mg tablet 16:25: every [place] [address] morning Medical and Branch evening. carvediloL 2020-06 Yes 12.5mg Take 12.5 Univers (COREG) 0-25 mg by ity of 12.5 mg 16:25: mouth 2 [place] tablet 35 (two) Medical times Branch daily with meals. predniSONE 2020-06 Yes 10mg Take 10 mg U nivers 10 mg 0-25 by mouth ity of tablet 16:25: daily. [address] spironolact 2020-06 Yes 25mg Take 25 mg Univers one 25 mg 0-25 by mouth ity of tablet 16:25: daily. [address] BENZONATATE 2020-06 Yes Take by Uni vers ORAL 0-25 mouth. ity of 16:25: [address] tamsulosin 2020-06 Yes Take by [place] [facility] ers (FLOMAX) 0-25 mouth ity of 0.4 mg 24 16:25: daily. [facility] [place] [facility] capsule [address] [place] [address] finasteride 2020-06 Yes 5mg Take 5 mg U nivers 5 mg tablet 0-25 by mouth ity of 16:25: daily. [address] furosemide 2020-06 Yes 80mg Take 80 mg U nivers (LASIX) 80 0-25 by mouth ity o f mg tablet 16:25: every [place] [address] morning Medical and Branch evening. carvediloL 2020-06 Yes 12.5mg Take 12.5 Univers (COREG) 0-25 mg by ity of 12.5 mg 16:25: mouth 2 [place] tablet 35 (two) Medical times [place] daily with meals. predniSONE 2020-06 Yes 10mg Take 10 mg U nivers 10 mg 0-25 by mouth ity of tablet 16:25: daily. [address] spironolact 2020-06 Yes 25mg Take 25 mg Univers one 25 mg 0-25 by mouth ity of tablet 16:25: daily. [address] BENZONATATE 2020-06 Yes Take by Uni vers ORAL 0-25 mouth. ity of 16:25: [address] tamsulosin 2020-06 Yes Take by [place] [facility] ers (FLOMAX) 0-25 mouth ity of 0.4 mg 24 16:25: daily. [facility] [place] [facility] capsule [address] [place] [address] finasteride 2020-06 Yes 5mg Take 5 mg U nivers 5 mg tablet 0-25 by mouth ity of 16:25: daily. [address] furosemide 2020-06 Yes 80mg Take 80 mg U nivers (LASIX) 80 0-25 by mouth ity o f mg tablet 16:25: every [place] [address] morning Medical and Branch evening. carvediloL 2020-06 Yes 12.5mg Take 12.5 Univers (COREG) 0-25 mg by ity of 12.5 mg 16:25: mouth 2 [place] tablet 35 (two) Medical times [place] daily with meals. predniSONE 2020-06 Yes 10mg Take 10 mg U nivers 10 mg 0-25 by mouth ity of tablet 16:25: daily. [address] spironolact 2020-06 Yes 25mg Take 25 mg Univers one 25 mg 0-25 by mouth ity of tablet 16:25: daily. [address] BENZONATATE 2020-06 Yes Take by Uni vers ORAL 0-25 mouth. ity of 16:25: [address] tamsulosin 2020-06 Yes Take by [place] [facility] ers (FLOMAX) 0-25 mouth ity of 0.4 mg 24 16:25: daily. [facility] [place] [facility] capsule [address] [place] [address] finasteride 2020-06 Yes 5mg Take 5 mg U nivers 5 mg tablet 0-25 by mouth ity of 16:25: daily. [address] furosemide 2020-06 Yes 80mg Take 80 mg U nivers (LASIX) 80 0-25 by mouth ity o f mg tablet 16:25: every [place] [address] morning Medical and Branch evening. carvediloL 2020-06 Yes 12.5mg Take 12.5 Univers (COREG) 0-25 mg by ity of 12.5 mg 16:25: mouth 2 [place] [address] (two) Medical times [place] daily with meals. predniSONE 2020-06 Yes 10mg Take 10 mg U nivers 10 mg 0-25 by mouth ity of tablet 16:25: daily. [address] spironolact 2020-06 Yes 25mg Take 25 mg Univers one 25 mg 0-25 by mouth ity of tablet 16:25: daily. [address] BENZONATATE 2020-06 Yes Take by Uni vers ORAL 0-25 mouth. ity of 16:25: [address] tamsulosin 2020-06 Yes Take by [place] [facility] ers (FLOMAX) 0-25 mouth ity of 0.4 mg 24 16:25: daily. [facility] [place] [facility] capsule [address] [place] [address] finasteride 2020-06 Yes 5mg Take 5 mg U nivers 5 mg tablet 0-25 by mouth ity of 16:25: daily. [address] furosemide 2020-06 Yes 80mg Take 80 mg U nivers (LASIX) 80 0-25 by mouth ity o f mg tablet 16:25: every [place] [address] morning Medical and Branch evening. carvediloL 2020-06 Yes 12.5mg Take 12.5 Univers (COREG) 0-25 mg by ity of 12.5 mg 16:25: mouth 2 [place] tablet 35 (two) Medical times Branch daily with meals. predniSONE 2020-06 Yes 10mg Take 10 mg U nivers 10 mg 0-25 by mouth ity of tablet 16:25: daily. [address] spironolact 2020-06 Yes 25mg Take 25 mg Univers one 25 mg 0-25 by mouth ity of tablet 16:25: daily. [address] BENZONATATE 2020-06 Yes Take by Uni vers ORAL 0-25 mouth. ity of 16:25: [address] tamsulosin 2020-06 Yes Take by [place] [facility] ers (FLOMAX) 0-25 mouth ity of 0.4 mg 24 16:25: daily. [facility] [place] [facility] capsule [address] [place] [address] finasteride 2020-06 Yes 5mg Take 5 mg U nivers 5 mg tablet 0-25 by mouth ity of 16:25: daily. [address] furosemide 2020-06 Yes 80mg Take 80 mg U nivers (LASIX) 80 0-25 by mouth ity o f mg tablet 16:25: every [place] [address] morning Medical and Branch evening. carvediloL 2020-06 Yes 12.5mg Take 12.5 Univers (COREG) 0-25 mg by ity of 12.5 mg 16:25: mouth 2 [place] tablet 35 (two) Medical times [place] daily with meals. predniSONE 2020-06 Yes 10mg Take 10 mg U nivers 10 mg 0-25 by mouth ity of tablet 16:25: daily. [address] spironolact 2020-06 Yes 25mg Take 25 mg Univers one 25 mg 0-25 by mouth ity of tablet 16:25: daily. [address] BENZONATATE 2020-06 Yes Take by Uni vers ORAL 0-25 mouth. ity of 16:25: [address] tamsulosin 2020-06 Yes Take by Univ ers (FLOMAX) 0-25 mouth ity of 0.4 mg 24 16:25: daily. [facility] [place] [facility] capsule [address] [place] [address] finasteride 2020-06 Yes 5mg Take 5 mg U nivers 5 mg tablet 0-25 by mouth ity of 16:25: daily. [address] furosemide 2020-06 Yes 80mg Take 80 mg U nivers (LASIX) 80 0-25 by mouth ity o f mg tablet 16:25: every [place] [address] morning Medical and Branch evening. carvediloL 2020-06 Yes 12.5mg Take 12.5 Univers (COREG) 0-25 mg by ity of 12.5 mg 16:25: mouth 2 [place] tablet 35 (two) Medical times Branch daily with meals. predniSONE 2020-06 Yes 10mg Take 10 mg U nivers 10 mg 0-25 by mouth ity of tablet 16:25: daily. [address] spironolact 2020-06 Yes 25mg Take 25 mg Univers one 25 mg 0-25 by mouth ity of tablet 16:25: daily. [address] BENZONATATE 2020-06 Yes Take by Uni vers ORAL 0-25 mouth. ity of 16:25: [address] tamsulosin 2020-06 Yes Take by [place] [facility] ers (FLOMAX) 0-25 mouth ity of 0.4 mg 24 16:25: daily. [facility] [place] [facility] capsule [address] [place] [address] finasteride 2020-06 Yes 5mg Take 5 mg U nivers 5 mg tablet 0-25 by mouth ity of 16:25: daily. [address] furosemide 2020-06 Yes 80mg Take 80 mg U nivers (LASIX) 80 0-25 by mouth ity o f mg tablet 16:25: every [place] [address] morning Medical and Branch evening. carvediloL 2020-06 Yes 12.5mg Take 12.5 Univers (COREG) 0-25 mg by ity of 12.5 mg 16:25: mouth 2 [place] tablet 35 (two) Medical times [place] daily with meals. predniSONE 2020-06 Yes 10mg Take 10 mg U nivers 10 mg 0-25 by mouth ity of tablet 16:25: daily. [address] spironolact 2020-06 Yes 25mg Take 25 mg Univers one 25 mg 0-25 by mouth ity of tablet 16:25: daily. [address] BENZONATATE 2020-06 Yes Take by Uni vers ORAL 0-25 mouth. ity of 16:25: [address] tamsulosin 2020-06 Yes Take by Univ ers (FLOMAX) 0-25 mouth ity of 0.4 mg 24 16:25: daily. [facility] [place] [facility] capsule [address] [place] [address] finasteride 2020-06 Yes 5mg Take 5 mg U nivers 5 mg tablet 0-25 by mouth ity of 16:25: daily. [place] [address] Medical Branch furosemide 2020-06 Yes 80mg Take 80 mg U nivers (LASIX) 80 0-25 by mouth ity o f mg tablet 16:25: every [place] [address] morning Medical and Branch evening. potassium 2020-06 Yes 20meq Take 20 Univ ers chloride 0-25 mEq by ity of (KCL-20 16:20: mouth 2 [place] ORAL) 34 (two) Medical times Branch daily. warfarin 4 2020-06 Yes 4.5mg Take 4.5 Un trupti mg tablet 0-25 mg by ity of 16:20: mouth. [place] [address] Medical Branch potassium 2020-06 Yes 20meq Take 20 Univ ers chloride 0-25 mEq by ity of (KCL-20 16:20: mouth 2 [place] ORAL) 34 (two) Medical times Branch daily. warfarin 4 2020-06 Yes 4.5mg Take 4.5 Un trupti mg tablet 0-25 mg by ity of 16:20: mouth. [place] [address] Medical Branch potassium 2020-06 Yes 20meq Take 20 Univ ers chloride 0-25 mEq by ity of (KCL-20 16:20: mouth 2 [place] ORAL) 34 (two) Medical times Branch daily. warfarin 4 2020-06 Yes 4.5mg Take 4.5 Un trupti mg tablet 0-25 mg by ity of 16:20: mouth. [place] [address] Medical Branch potassium 2020-06 Yes 20meq Take 20 Univ ers chloride 0-25 mEq by ity of (KCL-20 16:20: mouth 2 [place] ORAL) 34 (two) Medical times Branch daily. warfarin 4 2020-06 Yes 4.5mg Take 4.5 Un trupti mg tablet 0-25 mg by ity of 16:20: mouth. [place] [address] Medical Branch potassium 2020-06 Yes 20meq Take 20 Univ ers chloride 0-25 mEq by ity of (KCL-20 16:20: mouth 2 [place] ORAL) 34 (two) Medical times Branch daily. warfarin 4 2020-06 Yes 4.5mg Take 4.5 Un trupti mg tablet 0-25 mg by ity of 16:20: mouth. [place] [address] Medical Branch potassium 2020-06 Yes 20meq Take 20 Univ ers chloride 0-25 mEq by ity of (KCL-20 16:20: mouth 2 [place] ORAL) 34 (two) Medical times Branch daily. warfarin 4 2020-06 Yes 4.5mg Take 4.5 Un trupti mg tablet 0-25 mg by ity of 16:20: mouth. [address] potassium 2020-06 Yes 20meq Take 20 Univ ers chloride 0-25 mEq by ity of (KCL-20 16:20: mouth 2 [place] ORAL) 34 (two) Medical times Branch daily. warfarin 4 2020-06 Yes 4.5mg Take 4.5 Un trupti mg tablet 0-25 mg by ity of 16:20: mouth. [address] potassium 2020-06 Yes 20meq Take 20 Univ ers chloride 0-25 mEq by ity of (KCL-20 16:20: mouth 2 [place] ORAL) 34 (two) Medical times Branch daily. warfarin 2020-06 Yes 4.5mg Take 4.5 Un trupti mg tablet 0-25 mg by ity of 16:20: mouth. [address] potassium 2020-06 Yes 20meq Take 20 Univ ers chloride 0-25 mEq by ity of (KCL-20 16:20: mouth 2 [place] ORAL) 34 (two) Medical times Branch daily. warfarin 2020-06 Yes 4.5mg Take 4.5 Un trupti mg tablet 0-25 mg by ity of 16:20: mouth. [address] potassium 2020-06 Yes 20meq Take 20 Univ ers chloride 0-25 mEq by ity of (KCL-20 16:20: mouth 2 [place] ORAL) 34 (two) Medical times Branch daily. warfarin 2020-06 Yes 4.5mg Take 4.5 Un trupti mg tablet 0-25 mg by ity of 16:20: mouth. [address] cyclobenzap Yes [id number] 10mg Take 1 Univers rine 10 mg 9-21 [id number] tablet by it y of tablet 00:00: mouth 3 00 (three) Medical times Branch daily. cyclobenzap Yes [id number] 10mg Take 1 Univers rine 10 mg 9-21 [id number] tablet by it y of tablet 00:00: mouth 3 00 (three) Medical times Branch daily. cyclobenzap Yes [id number] 10mg Take 1 Univers rine 10 mg 9-21 [id number] tablet by it y of tablet 00:00: mouth 3 (three) Medical times Branch daily. cyclobenzap 2020-0 Yes [id number] 10mg Take 1 Univers rine 10 mg 9-21 [id number] tablet by it y of tablet 00:00: mouth 3 00 (three) Medical times Branch daily. cyclobenzap 2020-0 Yes [id number] 10mg Take 1 Univers rine 10 mg 9-21 [id number] tablet by it y of tablet 00:00: mouth 3 (three) Medical times Branch daily. cyclobenzap 2020-0 Yes [id number] 10mg Take 1 Univers rine 10 mg 9-21 [id number] tablet by it y of tablet 00:00: mouth 3 (three) Medical times Branch daily. cyclobenzap 2020-0 Yes [id number] 10mg Take 1 Univers rine 10 mg 9-21 [id number] tablet by it y of tablet 00:00: mouth 3 (three) Medical times Branch daily. cyclobenzap 2020-0 Yes [id number] 10mg Take 1 Univers rine 10 mg 9-21 [id number] tablet by it y of tablet 00:00: mouth 3 (three) Medical times Branch daily. cyclobenzap 2020-0 Yes [id number] 10mg Take 1 Univers rine 10 mg 9-21 [id number] tablet by it y of tablet 00:00: mouth 3 (three) Medical times Branch daily. cyclobenzap 2020-0 Yes [id number] 10mg Take 1 Univers rine 10 mg 9-21 [id number] tablet by it y of tablet 00:00: mouth 3 (three) Medical times Branch daily. valsartan 2020-0 Yes Univers 320 mg 9-16 ity of tablet 00:00: 00 Medical Branch valsartan 2020-0 Yes Univers 320 mg 9-16 ity of tablet 00:00: Medical Branch valsartan 2020-0 Yes Univers 320 mg 9-16 ity of tablet 00:00: Medical Branch valsartan 1-0 Yes Univers 320 mg 9-16 ity of tablet 00:00: Medical Branch valsartan 2020-0 Yes Univers 320 mg 9-16 ity of tablet 00:00: Medical Branch valsartan 0 Yes Univers 320 mg 9-16 ity of tablet 00:00: 00 Medical Branch valsartan 2020-0 Yes Univers 320 mg 9-16 ity of tablet 00:00: [place] Medical [facility] valsartan 2020-0 Yes Univers 320 mg 9-16 ity of tablet 00:00: [place] 00 Medical Branch valsartan 2020-0 Yes Univers 320 mg 9-16 ity of tablet 00:00: [place] Medical [facility] valsartan 2020-0 Yes Univers 320 mg 9-16 ity of tablet 00:00: [place] 00 Medical Branch ofloxacin 0 Yes INSTILL 1 Uni vers 0.3 % 8-11 DROP IN ity of ophthalmic 00:00: BOTH EYES [place] solution 00 TWICE Medical DAILY FOR Branch 1 WEEK ofloxacin 0 Yes INSTILL 1 Uni vers 0.3 % 8-11 DROP IN ity of ophthalmic 00:00: BOTH EYES [place] solution 00 TWICE Medical DAILY FOR Branch 1 WEEK ofloxacin Yes INSTILL 1 Uni vers 0.3 % [...] 1-20 by mouth. ity of tablet 11:08: [address] olmesartan 2020-0 Yes 20mg Take 20 mg U nivers 20 mg 1-20 by mouth. ity of tablet 11:08: [address] olmesartan 2020-0 Yes 20mg Take 20 mg U nivers 20 mg 1-20 by mouth. ity of tablet 11:08: [address] olmesartan 2020-0 Yes 20mg Take 20 mg U nivers 20 mg 1-20 by mouth. ity of tablet 11:08: [address] olmesartan 2020-0 Yes 20mg Take 20 mg U nivers 20 mg 1-20 by mouth. ity of tablet 11:08: [address] olmesartan 2020-0 Yes 20mg Take 20 mg U nivers 20 mg 1-20 by mouth. ity of tablet 11:08: [address] olmesartan 2020-0 Yes 20mg Take 20 mg U nivers 20 mg 1-20 by mouth. ity of tablet 11:08: [address] olmesartan 2020-0 Yes 20mg Take 20 mg U nivers 20 mg 1-20 by mouth. ity of tablet 11:08: [address] olmesartan 2020-0 Yes 20mg Take 20 mg U nivers 20 mg 1-20 by mouth. ity of tablet 11:08: [address] olmesartan 2020-0 Yes 20mg Take 20 mg U nivers 20 mg 1-20 by mouth. ity of tablet 11:08: [address] Levaquin Levaquin 2020-0 2020- No Antonella 1 tablet Common 2-21 07-31 [place] [facility] 00:00: 00:00 - [facility] 00 :00 [facility] Furosemide Furosemide Yes Antonella [address] [facility] PredniSONE PredniSONE Yes Antonella [address] [facility] Losartan Losartan Yes Antonella 1 tablet Co mmon Potassium Potassium [facility] Carvedilol Carvedilol Yes Antonella as Co mmon [place] directed [facility] ProAir HFA ProAir HFA Yes Antonella 1 puff as Common [place] needed [facility] Warfarin Warfarin Yes Antonella 1 tablet Co mmon Sodium Sodium [place] [facility] Hydrocodone Hydrocodone Yes Antonella 1 tablet Common -Acetaminop -Acetaminop [place] [facility] needed [facility] Atorvastati Atorvastati Yes Antonella 1 tablet Common n Calcium n Calcium [facility] Lasix Lasix No Lasix Warfarin Warfarin No [...] 17:15:00 128 mm[Hg] Univer sity of pressure [facility] Diastolic blood 2022-07-09 17:15:00 88 mm[Hg] Unive rsity of pressure [facility] Heart rate 2022-07-09 17:15:00 91 /min Universi ty [facility] Body temperature 2022-07-09 17:15:00 36.78 [facility] Respiratory rate 2022-07-09 17:15:00 16 /min [facility] Body height 2022-07-09 17:15:00 177.8 cm Universi ty of [facility] Body weight 2022-07-09 17:15:00 108.863 kg Universi ty [facility] BMI 2022-07-09 17:15:00 34.44 kg/m2 [facility] Oxygen saturation in 2022-07-09 17:15:00 95 /min [facility] [facility] Arterial blood by [facility] Pulse oximetry Branch height 2022-07-02 13:00:00 69 [in_i] [facility] weight 2022-07-02 13:00:00 240 [lb_av] [facility] temperature 2022-07-02 13:00:00 97.7 [degF] [facility] bmi 2022-07-02 13:00:00 35.44 kg/m2 [facility] blood pressure 2022-07-02 13:00:00 146 mm[Hg] [facility] blood pressure 2022-07-02 13:00:00 82 mm[Hg] [facility] - diastolic [facility] Systolic blood 2022-04-04 16:21:00 154 mm[Hg] Univer sity of [facility] Diastolic blood 2022-04-04 16:21:00 90 mm[Hg] Unive rsity of pressure [facility] Heart rate 2022-04-04 16:21:00 77 /min Universi ty [facility] Body temperature 2022-04-04 16:20:00 36.11 Karly Univ ersity of [facility] Respiratory rate 2022-04-04 16:20:00 18 /min Univ ersity of [facility] Body height 2022-04-04 16:20:00 177.8 cm [facility] Body weight 2022-04-04 16:20:00 105.235 kg [facility] BMI 2022-04-04 16:20:00 33.29 kg/m2 Universi ty of [facility] Oxygen saturation in 2022-04-04 16:20:00 97 /min University of Arterial blood by [facility] Pulse oximetry Branch Systolic blood 2022-02-15 20:27:00 125 mm[Hg] Univer sity of [facility] [place] Diastolic blood 2022-02-15 20:27:00 74 mm[Hg] Unive rsity of pressure [facility] Heart rate 2022-02-15 20:27:00 66 /min [facility] [place] Body temperature 2022-02-15 20:27:00 36.17 Karly [facility] Res[facility] rate 2022-02-15 20:27:00 18 /min [facility] Body height 2022-02-15 20:27:00 177.8 cm [facility] [place] Body weight 2022-02-15 20:27:00 105.235 kg [facility] BMI 2022-02-15 20:27:00 33.29 kg/m2 [facility] Oxygen saturation in 2022-02-15 20:27:00 95 /min University of Arterial blood by [facility] Pulse oximetry Branch Procedures Procedure Date / Time Performed Performing Clinician Sour e POCT URINALYSIS AUTO 2022-07-09 17:25:00 [facility] AUTO 2022-07-09 00:00:00 [facility] PO[facility] URINALYSIS AUTO 2022-04-04 16:30:00 Shirley Gaines [facility] ASSIGNMENT OF BENEFITS 2022-04-04 15:59:27 Doctor Unassigned, No [facility] Branch Encounters Start End Encounter Admission Attending Care Care Encounter Source Date/Time Date/Time Type Type Clinicians Facility Department ID 2022-07-02 [facility] [id number] Common 16:47:01 , Kim [id number] [facility] 2022-06-05 Outpatient Schaubroeck [facility] [id number] - Common 10:28:01 , Kim [id number] [facility] 2021-06-28 Outpatient Schaubroeck ST[facility]MLC [facility] [id number] - Common 11:09:25 , Kim [id number] [facility] 2021-04-01 Outpatient R BRADLEY [facility] [id number] Univers 16:28:35 TODD [facility] 2021-04-01 [facility] [id number] Univers 12:28:56 TODD [facility] 2023-02-20 2023-02-20 [facility] [id number] Univers 15:00:00 15:00:00 [facility] 2023-02-12 2023-02-12 Outpatient R [facility] [id number] Univers 13:00:00 13:00:00 ity [facility] 2023-02-11 2023-02-11 Telephone [facility] 1.2.840.114 [id number] Univers 00:00:00 00:00:00 Shirley VALLES 350.1.13.10 ity of [place] [phone] [address] 2023-02-07 2023-02-07 [facility] 1.2.840.114 [id number] Univers 00:00:00 00:00:00 [facility] 350.1.13.10 i ty [place] [id number] [address] 2023-01-23 2023-01-23 Outpatient R [facility] [id number] Univers 13:45:00 13:45:00 SHIRLEY anne o f [facility] 2022-07-09 2022-07-09 Outpatient R [facility] [id number] Univers 11:30:00 11:47:44 SHIRLEY schwartzy o f [facility] 2022-07-09 2022-07-09 Office [facility] 1.2.840.114 [id number] Univers 11:30:00 11:47:44 Visit Shirley VALLES 350.1.13.10 ity of [facility] [place] [phone] Ny dic[address] 2022-07-02 2022-07-02 [facility] [id number] Co mmon 00:00:00 00:00:00 VISIT [facility] it PT LEVEL 4 - [facility] 2022-04-09 2022-04-09 Case [facility] 1.2.840.114 [id number] Univers 00:00:00 00:00:00 Management Shirley VALLES 350.1.13.10 it[place] [phone] [address] 2022-04-04 2022-04-04 Outpatient R [facility] [id number] [facility] 11:00:00 11:53:16 SHIRLEY anne o [facility] 2022-04-04 2022-04-04 [facility] 1.2.840.114 [id number] Univers 11:00:00 11:53:16 Visit Shirley VALLES 350.1.13.10 it[place] [phone] [address] 2022-04-04 2022-04-04 Orders Doctor PEREZ 1.2.840.114 [id number] Univers 00:00:00 00:00:00 Only Unassigned, LAUREN 350.1.13.10 ity of [place] [facility] 4.2.7.2.686 [place] as [id number] [address] 2022-02-15 2022-02-15 Outpatient R DEISY [facility] [id number] Univers 15:00:00 16:39:54 DEVANG ity of [facility] 2022-02-15 2022-02-15 Outpatient R [facility] [id number] Univers 15:00:00 16:39:54 DEVANG ity [facility] 2022-02-15 2022-02-15 Office [facility] 1.2.840.114 [id number] Univers 15:00:00 16:39:54 Visit Devang [place] 350.1.13.10 i ty [place] [facility] [place] [phone] [address] 2022-02-08 2022-02-08 Orders Doctor CHRIS 1.2.840.114 [id number] Univers 00:00:00 00:00:00 Only Unassigned, LAUREN 350.1.13.10 ity of [place] [facility] 4.2.7.2.686 [place] [phone] [address] 2022-02-07 2022-02-07 Telephone [facility] 1.2.840.114 [id number] Univers 00:00:00 00:00:00 Devang [place] 350.1.13.10 i ty [place] [facility] [place] [phone] [address] 2021-08-16 2021-08-16 Telephone [facility] 1.2.840.114 [id number] Univers 00:00:00 00:00:00 Devang [place] 350.1.13.10 i ty [place] [phone] [address] 2021-06-29 2021-06-29 Outpatient R [facility] [id number] Univers 10:15:00 11:03:20 DEVANG ity [facility] 2021-06-29 2021-06-29 Office [facility] 1.2.840.114 [id number] Univers 10:15:00 11:03:20 Visit Devang [place] 350.1.13.10 i ty of [facility] [place] [phone] Ny dical NAL 204 [facility] 2021-06-29 2021-06-29 [facility] [id number] Univers 10:15:00 11:03:20 [facility] 2021-05-23 2021-05-23 Outpatient [facility] [id number] Univers 10:30:00 10:30:00 [facility] 2021-05-04 2021-05-04 Outpatient [facility] [id number] Univers 09:00:00 09:00:00 [facility] 2021-05-01 2021-05-01 Outpatient [facility] [id number] Univers 10:00:00 11:13:51 [facility] 2021-05-01 2021-05-01 Office [facility] 1.2.840.114 [id number] Univers 09:55:06 11:13:51 Visit [facility] 350.1.13.10 i ty [facility] 4[place]2.[place] [phone] Ny dical DONNA [address] [place] [address] 2021-05-01 2021-05-01 Outpatient R [facility]EL[facility] [id number] Univers 10:00:00 10:00:00 [facility] 2021-04-26 2021-04-26 Telephone [facility] 1.2.737.537 [id number] Univers 00:00:00 00:00:00 [facility] 350.1.13.10 it y of [place] 4.2.7.2.686 [place] GURDEEP?BLEA [phone] Ny dical BOYD[address] OFFICE [facility] 2021-04-20 2021-04-20 Outpatient [facility] [id number] Univers 13:00:00 13:49:39 [facility] 2021-04-20 2021-04-20 Nurse Nurse, [facility] 1.2. 840.114 [id number] Univers 12:47:11 13:49:39 Visit Sarah Sal 350.1.13.10 ity of [facility] 4.[place] [phone] [facility] 204 [facility] 2021-04-20 2021-04-20 Telephone [facility] 1.2.840.114 [id number] Univers 00:00:00 00:00:00 [facility] 350.1.13.10 it y of [facility] 4.2.7.2.686 [place] GURDEEP?BLEA [phone] [address] OFFICE [facility] 2021-04-14 2021-04-14 Telephone [facility] 1.2.840.114 [id number] Univers 00:00:00 00:00:00 Devang [facility] 350.1.13.10 i ty of [place] [phone] [facility] 204 [facility] 2021-04-13 2021-04-13 Outpatient Becca SORIA [facility] [id number] Univers 11:00:00 11:00:00 [facility] 2021-04-13 2021-04-13 Outpatient [facility] [id number] Univers 11:00:00 11:00:00 [facility] 2021-04-12 2021-04-12 [facility] [id number] Univers 14:30:00 15:46:08 [facility] 2021-04-12 2021-04-12 Outpatient R DORON [facility] [id number] Univers 14:30:00 15:46:08 [facility] 2021-04-12 2021-04-12 [facility] [id number] Univers 14:30:00 15:46:08 SARAH [facility] 2021-04-12 2021-04-12 Office [facility] 1.2.840.114 [id number] Univers 14:20:54 15:46:08 Visit Sarah VALLES 350.1.13.10 ity [facility] 4[place]2.[place] [phone] Me dical NAL 204 [facility] 2021-04-12 2021-04-12 Outpatient Becca SAL [facility] [id number] Univers 14:30:00 14:30:00 SARAH itgracie [facility] 2021-03-31 2021-03-31 Outpatient Becca SORIA [facility] [id number] Univers 11:12:45 23:59:00 [facility] 2021-03-31 2021-03-31 Hospital [facility] 1.2.840.114 [id number] Univers 11:12:45 23:59:00 Encounter [facility] 350.1.13.10 ity [facility] 4.2.7.2.686 [place] GURDEEP?BLEA [phone] Ny dical BOYDEY 8[address] [facility] OFFICE [facility] 2021-03-31 2021-03-31 Outpatient Becca SORIA [facility] [id number] Univers 11:12:45 23:59:00 [facility] 2021-03-31 2021-03-31 Office [facility] 1.2.840.114 [id number] Univers 11:08:32 11:41:27 Visit [facility] 350.1.13.10 it y of [place] 4.2.7.2.686 [place] GURDEEP?BLEA [phone] Ny dical KNEY 198 [facility] OFFICE [facility] 2021-03-31 2021-03-31 Outpatient Becca SORIA [facility] [id number] Univers 11:00:00 11:41:27 GENNA [facility] 2021-03-31 2021-03-31 Outpatient Becca SORIA [facility] [id number] Univers 11:00:00 11:00:00 GENNA [facility] 2021-03-31 2021-03-31 Outpatient Becca SORIA [facility] [id number] Univers 11:00:00 11:00:00 GENNA [facility] 2021-03-31 2021-03-31 Outpatient Becca SORIA [facility] [id number] Univers 11:00:00 11:00:00 GENNA ity of [facility] 2021-03-31 2021-03-31 Telephone [facility] 1.2.552.126 [id number] Univers 00:00:00 00:00:00 Genna S HEALTH 350.1.13.10 it y of [facility] 4.2.7.2.686 [place] GURDEEP?BLEA [phone] [address] OFFICE [facility] 2021-03-30 2021-03-30 Telephone [facility] 1.2.979.881 [id number] Univers 00:00:00 00:00:00 Sarah VALLES 350.1.13.10 ity of [place] [phone] [facility] 204 [facility] 2021-03-27 2021-03-27 Office [facility] 1.2.840.114 [id number] Univers 11:15:08 12:12:54 Visit [facility] [place] 350.1.13.10 i ty of [place] [phone] [address] 2021-03-27 2021-03-27 Outpatient R [facility] [id number] Univers 11:30:00 11:30:00 [facility] 2021-03-27 2021-03-27 Outpatient R [facility] [id number] Univers 11:30:00 11:30:00 DEVANG ity [facility] 2021-03-27 2021-03-27 Orders Doctor CHRIS 1.2.840.114 [id number] Univers 00:00:00 00:00:00 Only Unassigned, LAUREN 350.1.13.10 ity of [place] [facility] 4.2.7.2.686 [place] [phone] [address] 2021-03-24 2021-03-24 Telephone [facility] 1.2.847.472 [id number] Univers 00:00:00 00:00:00 Genna S Health 350.1.13.10 it y of [place] 4.2.7.2.686 [place] Gurdeep?Blea [phone] Ny jose osorio [address] [place] [address] [facility] 2021-03-10 2021-03-10 Hospital [facility] 1.2.840.114 [id number] Univers 11:45:00 23:59:00 Encounter Genna Valles 350.1.13.10 [place] of [place] [phone] [facility] [address] [place] 2021-03-10 2021-03-10 Outpatient [facility] [id number] Univers 11:00:00 11:09:25 [facility] 2021-03-10 2021-03-10 Outpatient [facility] [id number] Univers 11:00:00 11:00:00 [facility] 2021-03-10 2021-03-10 Office [facility] 1.2.840.114 [id number] Univers 10:44:29 10:59:29 Visit Genna Bhardwaj [facility] 350.1.13.10 it y of [place] 4.2.7.2.686 [place] Gurdeep?Blea [phone] Ny jose camacho 198 [facility] Heart Office [facility] 2021-03-10 2021-03-10 Orders Doctor CHRIS 1.2.840.114 [id number] Univers 00:00:00 00:00:00 Only Unassigned, LAUREN 350.1.13.10 ity of [place] [facility] 4.2.7.2.686 [place] [phone] [facility] [address] [place] 2021-03-10 2021-03-10 [facility] 1.2.392.943 [id number] Univers 00:00:00 00:00:00 Genna Bhardwaj Health 350.1.13.10 it y of [place] 4.2.7.2.686 [place] Gurdeep?Blea [phone] Ny jose osorio [address] [place] [address] [facility] 2021-03-07 2021-03-07 Outpatient [facility] [id number] Univers 11:15:00 11:15:00 [facility] 2021-03-03 2021-03-03 Patient Mannie [facility] 1.2.840.114 [id number] Univers 00:00:00 00:00:00 Outreach [facility] 350.1.13.10 i ty of Surgical 4.2.7.2.686 [place] Specialti [phone] Ny jose comer 198 [facility] 2021-02-28 2021-02-28 Outpatient R YANG [facility] [id number] Univers 11:15:00 11:15:00 GENNA ity of [facility] 2021-02-28 2021-02-28 Telephone [facility] 1.2.006.079 [id number] Univers 00:00:00 00:00:00 Genna S Health 350.1.13.10 it y of [place] 4.2.7.2.686 [place] Gurdeep?Blea [phone] Ny jose osorio 198 [facility] Office [facility] 2021-02-27 2021-02-27 Telephone [facility] 1.2.840.114 [id number] Univers 00:00:00 00:00:00 Stewart L [facility] 350.1.13.10 it y of [place] 4.2.7.2.686 [place] Gurdeep?Blea [phone] Ny jose osorio 198 [facility] Office [facility] 2021-02-24 2021-02-24 Patient Luciano Chand 1.2.840.114 [id number] Univers 00:00:00 00:00:00 Outreach Leelee Pediatric 350.1.13.10 ity of [place] [phone] [address] 2021-02-23 2021-02-23 Telephone [facility] 1.2.439.110 [id number] Univers 00:00:00 00:00:00 Genna S Health 350.1.13.10 it y of [place] 4.2.7.2.686 [place] Gurdeep?Blea [phone] Ny jose osorio 198 [facility] Office [facility] 2021-02-21 2021-02-21 [facility] 1.2.840.114 [id number] Univers 13:27:42 23:59:00 Encounter Genna Zaiditon 350.1.13.10 ity of [place].2.[place] [phone] [facility] [address] [place] 2021-02-21 2021-02-21 Office Yang [facility] 1.2.840.114 [id number] Univers 10:18:05 11:57:08 Visit Genna Bhardwaj Health 350.1.13.10 it y of [place] 4.2.7.2.686 [place] Gurdeep?Blea [phone] [address] Medical Office [facility] 2021-02-21 2021-02-21 Outpatient R YANG [facility] [id number] Univers 10:00:00 10:00:00 GENNA ity of [facility] 2021-02-21 2021-02-21 Telephone Jerardo [facility] 1.2.840.114 [id number] Univers 00:00:00 00:00:00 Stewart Mireille [facility] 350.1.13.10 it y of [place] 4.2.7.2.686 [place] Gurdeep?Blea [phone] [address] [facility] 2020-07-08 2020-07-08 Outpatient R MARK [facility] [id number] Univers 16:10:00 16:10:00 KHARI ity [facility] 2020-06-22 2020-06-22 [facility] Bradley [facility] 1.2.050.267 [id number] Univers 08:05:00 10:53:00 Encounter Todd Valles 350.1.13.10 ity [place] Surgical [phone] [facility] [address] 2020-06-21 2020-06-21 Laboratory Only, Adc Test [facility] 1.2.840. 114 [id number] Univers 10:21:28 10:36:28 Only Todd Huerta 350.1.13.1 0 ity of [place] [phone] [facility] [address] 2020-06-21 2020-06-21 Outpatient R BRADLEY [facility] [id number] Univers 10:30:00 10:30:00 TODD gracie [facility] 2020-06-21 2020-06-21 Outpatient Becca HUERTA [facility] [id number] Univers 10:30:00 10:30:00 TODD [facility] 2020-06-21 2020-06-21 Orders Doctor PEREZ 1.2.840.114 [id number] Univers 00:00:00 00:00:00 Only Unassigned, LAUREN 350.1.13.10 ity of [facility] 4.2.7.2.686 [place] as [phone] [facility] [address] 2020-06-10 2020-06-10 Outpatient Becca MARK [facility] [id number] Univers 16:20:00 16:20:00 KHARI gracie [facility] 2020-06-10 2020-06-10 Outpatient Becca TATUMUM [facility] [id number] Univers 16:20:00 16:07:12 KHARI [facility] 2020-06-01 2020-06-01 Hospital [facility] 1.2.804.669 [id number] Univers 07:37:00 11:21:00 Encounter Todd Valles 350.1.13.10 ity [facility] 4.2.7.2.686 [place] [facility] [phone] [place] 011581 [place] 2020-06-01 2020-06-01 Outpatient Becca BRADLEY [facility] [id number] Univers 07:37:00 11:21:00 TODD [facility] 2020-05-31 2020-05-31 Laboratory Only, Adc Test [facility] 1.2.840. 114 [id number] Univers 10:00:17 10:15:17 Only Todd Huerta 350.1.13.1 0 ity [facility] 4.2.7.2.[place] [id number] [facility] [address] [place] 2020-05-31 2020-05-31 Outpatient R BRADLEY [facility] [id number] Univers 10:00:00 10:00:00 TODD gracie [facility] 2020-05-31 2020-05-31 Outpatient R BRADLEY [facility] [id number] Univers 10:00:00 10:00:00 TODD gracie [facility] 2020-05-31 2020-05-31 Orders Doctor CHRIS 1.2.840.114 [id number] Univers 00:00:00 00:00:00 Only Unassigned, LAUREN 350.1.13.10 ity of [place] [facility] 4.2.7.2.686 [place] as [phone] [address] 2020-05-23 2020-05-23 [employer] Yelitza, Ileana Lab Main [facility] 1.2.8 40.114 [id number] Univers 12:28:57 12:43:57 Visit Todd Huerta 350.1.13.1 0 ity of [place] Profess[place] [phone] Ny dic[address] 2020-05-23 2020-05-23 [facility] [id number] Univers 12:00:00 12:00:00 TODD [facility] 2020-05-23 2020-05-23 Outpatient Becca HUERTA [facility] [id number] Univers 12:00:00 12:00:00 TODD [facility] 2020-05-23 2020-05-23 Orders Doctor CHRIS 1.2.840.114 [id number] Univers 00:00:00 00:00:00 Only Unassigned, LAUREN 350.1.13.10 ity of [place] [facility] 4.2.7.2.686 [place] [phone] [address] 2019-10-19 2019-10-19 Outpatient Juanita Grantt [id number] Common 11:15:00 11:15:00 t Specialty/U Sp leonela Specialty rology - [facility] /Urology Clinic [facility] 2019-07-31 2019-07-31 Outpatient Juanita Grantt [id number] Common 10:45:00 10:45:00 t Specialty/U Sp leonela Specialty rology - [facility] /[facility]rology Clinic [facility] 2019-07-27 2019-07-27 Outpatient Brazyesy [place] 29 [id number] Common 15:46:00 15:46:00 t Specialty/U Sp leonela Specialty rology - [facility] /Urology Clinic [facility] 2019-07-24 2019-07-24 Outpatient Juanita Grantt 29 [id number] Common 13:00:00 13:00:00 t Specialty/U Sp [facility]onela [facility]Urology Clinic [facility] Results Test Description Test Time Test Comments [...] U APPEAR (test code = 3267) clear [facility] URINALYSIS, [id number] 17:30:00 Test Item Value Reference Range Interpretation Comments POCT U SP GRAV (test code = 1.020 mg/dl 1.005-1.025 5) POCT PH U (test code = 3254) [...] U APPEAR (test code = clear 3267) [facility] URINALYSIS, [id number] 17:27:00 Test Item Value Reference Range Interpretation [...] 3267) Lab Interpretation (test code Abnormal = 10125-0) [facility] URINALYSIS, [id number] 17:27:00 Test Item Value Reference Range Interpretation [...] 3267) Lab Interpretation (test code Abnormal = 91861-7) [facility] [id number] 16:31:00 Test Item Value Reference Range Interpretation [...] 3267) Lab Interpretation (test code Abnormal = 61650-9) [facility] [id number] 16:31:00 Test Item Value Reference Range Interpretation [...] 3267) Lab Interpretation (test code Abnormal = 77981-9) [facility] [id number] 16:31:00 Test Item Value Reference Range Interpretation [...] 3267) Lab Interpretation (test code Abnormal = 42516-4) [facility]
[2023-03-30 21:36] LABS: Absolute Lymphocytes (CBC) 2.3 K/uL (0.7-4.9); Hematocrit 36.7 % (39.6-49.0); Lymphocytes % 23.9 % (15.3-44.8); MCV 93.7 fL (80-100); MPV 7.3 fL (7.6-11.3); Platelets 323 thou/uL (152-406); RBC Red Blood Cell Count 3.92 M/uL (4.33-5.43)
[2023-03-30 21:50] LABS: Albumin 2.9 g/dL (3.4-5.0); Bilirubin Direct 0.1 mg/dL (0-0.2); Bilirubin Indirect, Calculated 0.2 mg/dL (0.2-0.8); Bilirubin Total 0.3 mg/dL (0.2-1.0); Magnesium 2.3 mg/dL (1.6-2.4); Potassium 3.9 mEq/L (3.5-5.1); Protein, Total 6.9 g/dL (6.4-8.2)
--- NOTE | 2023-03-30 22:07 | ER ---
Nurse's Notes [facility] Name: Stew Guzman Age: 83 yrs Sex: Male : 1940 Arrival Date: 03/30/2023 Time: 20:51 Bed 3 Private MD: Diagnosis: Person with feared health complaint in whom no diagnosis is made Presentation: 03/30 20:55 Chief complaint: EMS states: [facility] called to say when pt was woken up from sleep km8 he was disoriented and stated he felt "dizzy", that was around 2004; per EMS pt is A\\T\\Ox4, denies dizziness at this time and VSS. Coronavirus screen: Client denies travel out of the [place] in the last 14 days. At this time, the client does not indicate any symptoms associated with coronavirus-19. Ebola Screen: No symptoms or risks identified at this time. Initial Sepsis Screen: Does the patient meet any 2 criteria? No. Patient's initial sepsis screen is negative. Does the patient have a suspected source of infection? No. Patient's initial sepsis screen is negative. Risk Assessment: Do you want to hurt yourself or someone else? Patient reports no desire to harm self or others. Onset of symptoms was March 30, 2023 at 20:05. 20:55 Method Of Arrival: EMS: [facility] km8 20:55 Acuity: JOSE MARTIN 3 km8 Triage Assessment: 21:01 General: Appears in no apparent distress. comfortable, Behavior is calm, cooperative, km8 appropriate for age. Pain: Complains of pain in bilateral shoulders Pain currently is 7 out of 10 on a pain scale. Quality of pain is described as aching, Pain began chronic. EENT: No deficits noted. No signs and/or symptoms were reported regarding the EENT system. Neuro: No deficits noted. Kyle Agitation-Sedation Scale (RASS): 0 - Alert and Calm Level of Consciousness is awake, alert, obeys commands, Oriented to person, place, time, situation. Cardiovascular: Denies chest pain, Capillary refill < 3 seconds Patient's skin is warm and dry. Respiratory: Reports shortness of breath chronic Airway Respiratory effort is even, labored when speaking Respiratory pattern is regular, symmetrical. GI: No deficits noted. No signs and/or symptoms were reported involving the gastrointestinal system. : Duarte in place. Derm: No signs and/or symptoms reported regarding the dermatologic system. Skin is intact, is healthy with good turgor, Skin is dry, Skin is pink, warm \\T\\ dry. normal, Skin temperature is warm. Musculoskeletal: No signs and/or symptoms reported regarding the musculoskeletal system. Range of motion: intact in all extremities. Historical: - Allergies: 21: Sulfa (Sulfonamide Antibiotics); km8 - PMHx: 21: Atrial fibrillation; Congestive heart failure; UTI; km8 - Immunization history:: Adult Immunizations up to date. - Social history:: Smoking status: Patient/guardian denies using tobacco, but has a distant history of tobacco abuse, Patient/guardian denies using alcohol, street drugs. - Family history:: not pertinent. Screenin:04 [facility] ED Fall Risk Assessment (Adult) History of falling in the last 3 months, 8 including since admission Yes- single mechanical fall (1 pt) Confusion or Disorientation No (0 pts) Intoxicated or Sedated No (0 pts) Impaired Gait Yes (1 pt) Mobility Assist Device Used No (0 pt) Altered Elimination No (0 pt) Score/Fall Risk Level 0 - 2 = Low Risk Oriented to surroundings, Maintained a safe environment, Educated pt \\T\\ family on fall prevention, incl call for assistance when getting out of bed, Assessed \\T\\ reinforced patient's understanding of fall precautions. Abuse screen: Denies threats or abuse. Denies injuries from another. Nutritional screening: No deficits noted. Tuberculosis screening: No symptoms or risk factors identified. Assessment: 21:04 General: see triage assessment and notes. [facility] 22:09 Reassessment: Patient appears in no apparent distress at this time. No changes from [facility] previously documented assessment. Patient and/or family updated on plan of care and expected duration. Pain level reassessed. Patient is alert, oriented x 3, equal unlabored respirations, skin warm/dry/pink. 22:19 General: called [facility] to arrange transportation to pick-up pt as he is ready for [facility] d/c; per Cruz he will call back and let us know an ETA when transportation has been arranged. 22:54 General: [facility] ETA 30-40 minutes. [facility] Vital Signs: 20:55 BP 121 / 86; Pulse 62; Resp 18; Pulse Ox 97% on 2 lpm NC; km8 22:07 BP 135 / 81; Pulse 62; Resp 22; Pulse Ox 97% on R/A; km8 ED Course: 20:54 Patient arrived in ED. rv1 20:54 Abelardo Hobson MD is Attending Physician. rt 20:55 Rosalinda Brown, YANY is Primary Nurse. km8 21:01 Triage completed. km8 21:01 Arm band placed on right wrist. km8 21:04 Patient has correct armband on for positive identification. Bed in low position. Call km8 light in reach. Side rails up X2. Client placed on continuous cardiac and pulse oximetry monitoring. NIBP monitoring applied. playground monitor on. 21:04 Oxygen administration via nasal cannula \\T\\ 2L/min. km8 21:26 Basic Metabolic Panel Sent. lg3 21:26 CBC with Diff Sent. lg3 21:26 LFT's Sent. lg3 21:26 Magnesium Sent. lg3 21:43 Inserted saline lock: 20 gauge in left antecubital area, using aseptic technique. Blood jr12 collected. 22:09 No provider procedures requiring assistance completed. IV discontinued, intact, km8 bleeding controlled, No redness/swelling at site. Pressure dressing applied. 23:13 Provided Education on: d/c teaching. km8 Administered Medications: No medications were administered Medication: 22:09 VIS not applicable for this client. km8 Outcome: 22:07 Discharge ordered by . rt 23:13 Discharged to Rehab Facility km8 23:13 Condition: good 23:13 Discharge instructions given to patient, family, Instructed on discharge instructions, follow up and referral plans. Demonstrated understanding of instructions, follow-up care, 23:13 Patient left the ED. km8 Signatures: Delphine Garza, RN RN lg3 Abelardo Hobson MD MD rt Leelee Griffin rv1 Gricelda Paul jr12 Rosalinda Brown, RN RN km8 Corrections: (The following items were deleted from the chart) 21:36 21:04 Patient maintains SpO2 saturation greater than 95% on room air. km8 km8
--- NOTE | 2023-03-30 22:07 | EDPHYS ---
Physician Documentation [facility] Name: Stew Guzman Age: 83 yrs Sex: Male : 1940 Arrival Date: 03/30/2023 Time: 20:51 Bed 3 Private MD: ED Physician Abelardo Hobson HPI: 03/30 22:56 This 83 yrs old Male presents to ER via EMS with complaints of Difficult to arouse. rt 22:56 [facility] with report of being difficult to arouse rt from sleep. Patient states that he believes he was in a deep sleep. He is now awake, alert, oriented. He has no complaints at this time. Symptoms are mild in severity, no other aggravating or elevating factors.. Historical: - Allergies: 21: Sulfa (Sulfonamide Antibiotics); km8 - PMHx: 21:01 Atrial fibrillation; Congestive heart failure; UTI; km8 - Immunization history:: Adult Immunizations up to date. - Social history:: Smoking status: Patient/guardian denies using tobacco, but has a distant history of tobacco abuse, Patient/guardian denies using alcohol, street drugs. - Family history:: not pertinent. ROS: 22:56 Constitutional: Negative for fever, chills, and weight loss, Cardiovascular: Negative rt for chest pain, palpitations, and edema, Respiratory: Negative for shortness of breath, cough, wheezing, and pleuritic chest pain, Abdomen/GI: Negative for abdominal pain, nausea, vomiting, diarrhea, and constipation, MS/Extremity: Negative for injury and deformity, Skin: Negative for injury, rash, and discoloration, Neuro: Negative for headache, weakness, numbness, tingling, and seizure, Psych: Negative for depression, anxiety, suicide ideation, homicidal ideation, and hallucinations, Exam: 22:58 Constitutional: This is a well developed, well nourished patient who is awake, alert, rt and in no acute distress. Head/Face: Normocephalic, atraumatic. Chest/axilla: Normal chest wall appearance and motion. Nontender with no deformity. No lesions are appreciated. Cardiovascular: Regular rate and rhythm with a normal S1 and S2. No gallops, murmurs, or rubs. Normal PMI, no JVD. No pulse deficits. Respiratory: Lungs have equal breath sounds bilaterally, clear to auscultation and percussion. No rales, rhonchi or wheezes noted. No increased work of breathing, no retractions or nasal flaring. Abdomen/GI: Soft, non-tender, with normal bowel sounds. No distension or tympany. No guarding or rebound. No evidence of tenderness throughout. Skin: Warm, dry with normal turgor. Normal color with no rashes, no lesions, and no evidence of cellulitis. MS/ Extremity: Pulses equal, no cyanosis. Neurovascular intact. Full, normal range of motion. Neuro: Awake and alert, GCS 15, oriented to person, place, time, and situation. Cranial nerves II-XII grossly intact. Motor strength 5/5 in all extremities. Sensory grossly intact. Cerebellar exam normal. Normal gait. 22:58 ECG was reviewed by the Attending Physician. Vital Signs: 20:55 BP 121 / 86; Pulse 62; Resp 18; Pulse Ox 97% on 2 lpm NC; km8 22:07 BP 135 / 81; Pulse 62; Resp 22; Pulse Ox 97% on R/A; km8 MDM: 20:55 Patient medically screened. rt 22:58 Differential Diagnosis AMS, sleep disturbance, electrolyte disturbance, dysrhythmia. rt Data reviewed: vital signs, nurses notes, lab test result(s), EKG. Test considered but Not performed: CT: Patient is awake, alert, oriented, no focal neurodeficits, CT scan of the head not indicated. Counseling: I had a detailed discussion with the patient and/or guardian regarding the historical points, exam findings, and any diagnostic results supporting the discharge/admit diagnosis, lab results, the need for outpatient follow up. 03/30 21:23 Order name: Basic Metabolic Panel; Complete Time: 21:51 rt 03/30 21:23 Order name: CBC with Diff; Complete Time: 21:51 rt 03/30 21:23 Order name: LFT's; Complete Time: 21:51 rt 03/30 21:23 Order name: Magnesium; Complete Time: 21:51 rt 03/30 21:23 Order name: EKG; Complete Time: 21:24 rt 03/30 21:23 Order name: Cardiac monitoring; Complete Time: 21: rt 03/30 21:23 Order name: EKG - Nurse/Tech; Complete Time: 21:44 rt 03/30 21:23 Order name: IV Saline Lock; Complete Time: rt 03/30 21:23 Order name: Labs collected and sent; Complete Time: rt 03/30 21:23 Order name: O2 Per Protocol; Complete Time: rt 03/30 21:23 Order name: O2 Sat Monitoring; Complete Time: : rt EC:58 Rate is 61 beats/min. Rhythm is irregular, A fib with No ectopy, Left bundle branch rt block. QRS [place] is Normal. QRS interval is normal. QT interval is normal. No Q waves. Administered Medications: No medications were administered Disposition Summary: 03/30/23 22:07 Discharge Ordered Notes: Location: Home rt Problem: new rt Symptoms: have improved rt Condition: Stable rt Diagnosis - Person with feared health complaint in whom no diagnosis is made rt Followup: rt - With: Private Physician - When: 2 - 3 days - Reason: Discharge Instructions: - Discharge Summary Sheet rt - Quality Sleep Information, Adult rt Forms: - Medication Reconciliation Form rt - Thank You Letter rt - Antibiotic Education rt - Prescription Opioid Use rt - Patient Portal Instructions rt - Leadership Thank You Letter rt Signatures: Dispatcher [employer] Abelardo Marc MD MD rt Rosalinda Brown, RN RN km8
[2023-03-31 00:09] VITALS: O2SAT 97
[2023-03-31 00:11] VITALS: BP 135/81
--- NOTE | 2023-04-02 07:57 | EKG ---
Test Date: 2023-03-30 Test Time: 21:37:04 Brick Burner: TEODORO MEASUREMENT RESULTS: Intervals: Rate: 61 IN: QRSD: 142 QT: 476 QTc: 479 [place]: P: IN: QRS: 72 T: 79 INTERPRETIVE STATEMENTS: Atrial fibrillation Left bundle branch block Abnormal ECG Compared to ECG 02/17/2023 14:08:24 Left bundle-branch block now present Right-axis deviation no longer present Electronically Signed On 04-02-23 07:52:18 CDT by Jovan Martin
== END 2023-03-30 23:13 | disposition home or self-care (01) ==
LOC: ER 20:51
DX: Z71.1 Person with feared health complaint in whom no diagnosis is made (principal); I50.9 Heart failure, unspecified; I48.91 Unspecified atrial fibrillation; Z88.2 Allergy status to sulfonamides
CPT/HCPCS: 36415; 80048; 80076; 83735; 85025; 93005; 99285